=== PATIENT | female | born 1985 | race Caucasian/White ===

== ENCOUNTER 2018-12-09 18:10 | Emergency (ER) | payer SELFPAY ==
[~2018-12-09] VITALS: Ht 167.6 cm; Wt 68.0 kg
--- OUTSIDE RECORDS SUMMARY | 2018-12-09 18:18 | XMS REPORT | Clinical Summary ---
Author Author Admin, TEO Zelaya [facility] Address Unknown Phone Unavailable Allergies, Adverse Reactions, Alerts Allergy Name Reaction Description Start Date Severity Status Provider No Known Allergies Sanam Pagan Conditions or Problems Problem Name Problem Code Onset Date Status Entry Date Provider Comment Standard Description Annotate Supervision of other normal V22.1 Active Shakira Nicole MD Supervision of other normal Dyspareunia 625.0 Active Shakira Nicole MD Dyspareunia Pelvic pain 625.9 Active Shakira Nicole MD Unspecified symptom associated with female genital organs Rh factor, negative 656.10 Active Shakira Nicole MD Rhesus isoimmunization affecting management of mother, unspecified as to episode of care or not applicable Uterine size date discrepancy, antepartum condition or complication 649.63 Active Magui Montesinos Uterine size date discrepancy, antepartum condition or complication Post term , antepartum condition or complication 645.13 Active Magui Montesinos Post term , antepartum condition or complication Nevus, atypical 216.9 Active Mario Stover APRN Benign neoplasm of skin, site unspecified Medication List Medication Instructions Start Date Stop Date Generic Name NDC Status Provider Patient Instruction IBUPROFEN 200 MG TAB Take two by mouth every 4 hours as needed IBUPROFEN 31655196384 Active Jillina Frazell HVAC FIELD SERVICE TECHNICIAN Active PERCOCET 5-325 MG TABS 1 tablet by mouth every 4 hours as needed OXYCODONE-ACETAMINOPHEN [id number] Active Jillina Frazell HVAC FIELD SERVICE TECHNICIAN Active Advance Directives Directive Description Start Date PERMISSION TO SHARE Immunizations Vaccine Administration Date Value Standard Description Adacel (Tetanus, reduced Diphtheria, and acellular Pertussis Immunization) Adacel [[id number]] tetanus toxoid, reduced diphtheria toxoid, and acellular pertussis vaccine, adsorbed hepatitis B vaccine series no hepatitis B vaccine, unspecified formulation Vital Signs Date Name Value Unit Range Description blood pressure, diastolic - 8462-4 82 mm[Hg] BP martinez blood pressure, systolic - 8480-6 142 mm[Hg] BP sys height E&M - 8302-2 66 [in_us] Bdy height pulse rate E&M - 8867-4 112 /min Heart rate temperature E&M 101.2 [degF] Body temperature weight E&M - 3141-9 172 [lb_av] Weight Measured blood pressure, diastolic - 8462-4 82 mm[Hg] BP martinez blood pressure, systolic - 8480-6 118 mm[Hg] BP sys height E&M - 8302-2 66 [in_us] Bdy height pulse rate E&M - 8867-4 84 /min Heart rate temperature E&M 97.9 [degF] Body temperature weight E&M - 3141-9 182 [lb_av] Weight Measured blood pressure, diastolic - 8462-4 81 mm[Hg] BP martinez blood pressure, systolic - 8480-6 121 mm[Hg] BP sys height E&M - 8302-2 66 [in_us] Bdy height pulse rate E&M - 8867-4 76 /min Heart rate temperature E&M 96.8 [degF] Body temperature weight E&M - 3141-9 185 [lb_av] Weight Measured blood pressure, diastolic - 8462-4 79 mm[Hg] BP martinez blood pressure, systolic - 8480-6 122 mm[Hg] BP sys height E&M - 8302-2 66 [in_us] Bdy height pulse rate E&M - 8867-4 93 /min Heart rate temperature E&M 97.0 [degF] Body temperature weight E&M - 3141-9 183 [lb_av] Weight Measured blood pressure, diastolic - 8462-4 87 mm[Hg] BP martinez blood pressure, systolic - 8480-6 138 mm[Hg] BP sys height E&M - 8302-2 66 [in_us] Bdy height pulse rate E&M - 8867-4 98 /min Heart rate temperature E&M 96.9 [degF] Body temperature weight E&M - 3141-9 179 [lb_av] Weight Measured blood pressure, diastolic - 8462-4 80 mm[Hg] BP martinez blood pressure, systolic - 8480-6 117 mm[Hg] BP sys pulse rate E&M - 8867-4 116 /min Heart rate temperature E&M 97.3 [degF] Body temperature weight E&M - 3141-9 178 [lb_av] Weight Measured blood pressure, diastolic - 8462-4 74 mm[Hg] BP martinez blood pressure, systolic - 8480-6 109 mm[Hg] BP sys height E&M - 8302-2 66 [in_us] Bdy height pulse rate E&M - 8867-4 81 /min Heart rate temperature E&M 98.6 [degF] Body temperature weight E&M - 3141-9 177 [lb_av] Weight Measured blood pressure, diastolic - 8462-4 75 mm[Hg] BP martinez blood pressure, systolic - 8480-6 123 mm[Hg] BP sys height E&M - 8302-2 66 [in_us] Bdy height pulse rate E&M - 8867-4 86 /min Heart rate temperature E&M 98.4 [degF] Body temperature weight E&M - 3141-9 174 [lb_av] Weight Measured blood pressure, diastolic - 8462-4 75 mm[Hg] BP martinez blood pressure, systolic - 8480-6 121 mm[Hg] BP sys height E&M - 8302-2 66 [in_us] Bdy height pulse rate E&M - 8867-4 96 /min Heart rate temperature E&M 98.3 [degF] Body temperature weight E&M - 3141-9 173 [lb_av] Weight Measured blood pressure, diastolic - 8462-4 73 mm[Hg] BP martinez blood pressure, systolic - 8480-6 113 mm[Hg] BP sys height E&M - 8302-2 66 [in_us] Bdy height pulse rate E&M - 8867-4 99 /min Heart rate temperature E&M 97.6 [degF] Body temperature weight E&M - 3141-9 171 [lb_av] Weight Measured blood pressure, diastolic - 8462-4 71 mm[Hg] BP martinez blood pressure, systolic - 8480-6 111 mm[Hg] BP sys height E&M - 8302-2 66 [in_us] Bdy height pulse rate E&M - 8867-4 90 /min Heart rate temperature E&M 98.0 [degF] Body temperature weight E&M - 3141-9 170 [lb_av] Weight Measured blood pressure, diastolic - 8462-4 77 mm[Hg] BP martinez blood pressure, systolic - 8480-6 120 mm[Hg] BP sys height E&M - 8302-2 66 [in_us] Bdy height pulse rate E&M - 8867-4 87 /min Heart rate temperature E&M 98.6 [degF] Body temperature weight E&M - 3141-9 166 [lb_av] Weight Measured blood pressure, diastolic - 8462-4 85 mm[Hg] BP martinez blood pressure, systolic - 8480-6 132 mm[Hg] BP sys height E&M - 8302-2 66 [in_us] Bdy height pulse rate E&M - 8867-4 83 /min Heart rate temperature E&M 98.7 [degF] Body temperature weight E&M - 3141-9 1623 [lb_av] Weight Measured blood pressure, diastolic - 8462-4 77 mm[Hg] BP martinez blood pressure, systolic - 8480-6 115 mm[Hg] BP sys height E&M - 8302-2 66 [in_us] Bdy height pulse rate E&M - 8867-4 81 /min Heart rate temperature E&M 98.1 [degF] Body temperature weight E&M - 3141-9 159 [lb_av] Weight Measured blood pressure, diastolic - 8462-4 73 mm[Hg] BP martinez blood pressure, systolic - 8480-6 119 mm[Hg] BP sys height E&M - 8302-2 66 [in_us] Bdy height pulse rate E&M - 8867-4 78 /min Heart rate temperature E&M 97.6 [degF] Body temperature weight E&M - 3141-9 156 [lb_av] Weight Measured blood pressure, diastolic - 8462-4 84 mm[Hg] BP martinez blood pressure, systolic - 8480-6 132 mm[Hg] BP sys height E&M - 8302-2 66 [in_us] Bdy height pulse rate E&M - 8867-4 87 /min Heart rate temperature E&M 98.5 [degF] Body temperature weight E&M - 3141-9 87 [lb_av] Weight Measured Diagnostic Results Date Name Value Unit Range Description Lab Report: ABO GROUP & RH TYPE, ANTIBODY SCREEN, RBCW/REFL I, CBC (IN ... - Blood bank ABO blood group AB Rh antigen RH (D) NEGATIVE antibody screen, serum NO ANTIBODIES DETECTED Lab Report: ABO GROUP & RH TYPE, ANTIBODY SCREEN, RBCW/REFL I, CBC (IN ... - Chemistry hepatitis B surface antigen NON-REACTIVE NON-REACTIVE Lab Report: ABO GROUP & RH TYPE, ANTIBODY SCREEN, RBCW/REFL I, CBC (IN ... - Hematology leukocyte count, blood 10.8 THOUSAND/UL 10*3/mm3 3.8-10.8 erythrocyte (RBC) count 4.58 MILLION/UL 10*6/mm3 3.80-5.10 hemoglobin, blood 13.6 g/dL 11.7-15.5 hematocrit, blood 42.1 % 35.0-45.0 mean corpuscular volume, RBC 91.8 fL 80.0-100.0 mean corpuscular hemoglobin, RBC 29.7 pg 27.0-33.0 mean corpuscular hemoglobin concentration, RBC 32.4 G/DL % 32.0-36.0 red blood cell distribution width 14.4 % 11.0-15.0 platelet count 270 THOUSAND/UL 10*3/mm3 140-400 Lab Report: ABO GROUP & RH TYPE, ANTIBODY SCREEN, RBCW/REFL I, CBC (IN ... - Lab chlamydia DNA probe NOT DETECTED NOT DETECTED Lab Report: ABO GROUP & RH TYPE, ANTIBODY SCREEN, RBCW/REFL I, CBC (IN ... - Microbiology Neisseria gonorrhoeae DNA probe NOT DETECTED NOT DETECTED Lab Report: ABO GROUP & RH TYPE, ANTIBODY SCREEN, RBCW/REFL I, CBC (IN ... - Serology rapid plasma reagin antibody titer NON-REACTIVE NON-REACTIVE rubella antibody, serum, IgG 3.92 Lab Report: ANTIBODY SCREEN, RBCW/REFL I - Blood bank antibody screen, serum NO ANTIBODIES DETECTED Lab Report: CBC, OBGTT1 - Hematology leukocyte count, blood 11.7 10^3/MM^3 10*3/mm3 4.6-10.2 erythrocyte (RBC) count 3.70 10^6/MM^3 10*6/mm3 4.04-5.48 hemoglobin, blood 11.5 g/dL 12.0-16.0 hematocrit, blood 34.1 % 36.0-46.0 mean corpuscular volume, RBC 92 fL 80-97 mean corpuscular hemoglobin, RBC 31.1 pg 27.0-31.2 mean corpuscular hemoglobin concentration, RBC 33.8 G/DL % 31.8-35.4 red blood cell distribution width 12.4 % 11.6-14.8 platelet count 291 10^3/MM^3 10*3/mm3 142-424 Lab Report: Thyroid Stimulating Hormone (L) - Chemistry TSH 0.82 m[iU]/mL 0.36-3.74 Office Visit: Initial OB Visit - Chemistry protein, total urine random UA mg/dL Office Visit: Initial OB Visit - Genetics/fertility test, date 04/16/2013 Office Visit: Initial OB Visit - Microbiology Herpes Simplex Virus Genital no Office Visit: Initial OB Visit - Urinalysis glucose, urine, semiquantitative UA nitrite, urine, semiquantitative UA Office Visit: OB Visit - Blood bank blood type with RH factor AB Office Visit: OB Visit - Chemistry Neisseria gonorrhoeae, genital culture negative protein, total urine random N mg/dL protein, total urine random N mg/dL protein, total urine random 1+ mg/dL protein, total urine random N mg/dL protein, total urine random N mg/dL protein, total urine random N mg/dL protein, total urine random Tr mg/dL protein, total urine random 1+ mg/dL protein, total urine random N mg/dL protein, total urine random N mg/dL protein, total urine random Tr mg/dL protein, total urine random 1+ mg/dL protein, total urine random 1+ mg/dL Office Visit: OB Visit - Microbiology group B streptococcus culture negative urine culture (with units of CFunits/mL) negative {cfu}/mL Office Visit: OB Visit - Urinalysis glucose, urine, semiquantitative N nitrite, urine, semiquantitative N leukocyte esterase, urine, by dipstick 1+ glucose, urine, semiquantitative N nitrite, urine, semiquantitative N leukocyte esterase, urine, by dipstick negative glucose, urine, semiquantitative N nitrite, urine, semiquantitative N glucose, urine, semiquantitative N nitrite, urine, semiquantitative N glucose, urine, semiquantitative N nitrite, urine, semiquantitative N glucose, urine, semiquantitative N nitrite, urine, semiquantitative N leukocyte esterase, urine, by dipstick 1+ glucose, urine, semiquantitative N nitrite, urine, semiquantitative N glucose, urine, semiquantitative N nitrite, urine, semiquantitative N glucose, urine, semiquantitative N nitrite, urine, semiquantitative N leukocyte esterase, urine, by dipstick 1+ glucose, urine, semiquantitative N nitrite, urine, semiquantitative N leukocyte esterase, urine, by dipstick trace glucose, urine, semiquantitative N nitrite, urine, semiquantitative N leukocyte esterase, urine, by dipstick 2+ glucose, urine, semiquantitative N nitrite, urine, semiquantitative N leukocyte esterase, urine, by dipstick trace glucose, urine, semiquantitative N nitrite, urine, semiquantitative N Procedures Code Procedure Name Date Entry Date Standard Description CPT-LR Lesion Removal 16:10:33 CDT CPT-OV Office Visit 16:10:33 CDT CPT-53683L Sono biophysical pro wo stress test-[place] Only 10:41:52 CDT CPT-82098 Visit 16:43:13 CDT CPT-33819 Visit 08:49:27 CDT CPT-17893 Visit 09:08:50 CDT CPT-53792 Visit 12:21:22 CDT CPT-71313 Visit 11:22:56 CDT CPT-89227 Visit 16:23:29 CDT CPT-64019 Visit 15:59:20 CDT CPT-31771 Visit 16:15:00 CDT CPT-06101 First Vx Component - Ix admin via ID IM or jet inj without physician counseling 15:57:47 CDT CPT-07196 Adacel 15:57:47 CDT CPT-71213 Visit 15:36:49 CDT CPT-46151 Visit 16:25:20 CDT CPT-06159 Sono OB comp > 14 weeks 17:12:58 AIR HOIST OPERATOR CPT-76633 Visit 17:03:47 AIR HOIST OPERATOR CPT-07047 Visit 16:32:33 AIR HOIST OPERATOR CPT-40310 Visit 16:32:21 AIR HOIST OPERATOR CPT-84194K Sono OB comp <14 weeks ([place] Only) 17:02:58 AIR HOIST OPERATOR CPT-36520 Spec Collection and Handling Fee 16:38:26 AIR HOIST OPERATOR CPT-46503 Visit 16:38:26 AIR HOIST OPERATOR
--- OUTSIDE RECORDS SUMMARY | 2018-12-09 18:18 | XMS REPORT | Clinical Summary ---
Author Author Admin, TEO Zelaya [facility] Address Unknown Phone Allergies, Adverse Reactions, Alerts Allergy Name Reaction [...] size date discrepancy, antepartum condition or complication Medication List Medication Instructions Start Date Stop Date Generic Name NDC Status Provider Patient Instruction No Drug Therapy Prescribed - none known did ask Sanam Pagan Advance Directives Directive Description Start Date PERMISSION TO SHARE Immunizations Vaccine Administration Date Value Standard Description Adacel immunization Adacel [[id number]] tetanus toxoid, reduced diphtheria toxoid, and acellular pertussis vaccine, adsorbed hepatitis B vaccine series no hepatitis B vaccine, unspecified formulation Vital Signs Date Name Value Unit Range Description blood pressure, diastolic 73 mm[Hg] BP martinez blood pressure, systolic 113 mm[Hg] BP sys height E&M 66 [in_us] Bdy height pulse rate E&M 99 /min Heart rate temperature E&M 97.6 [degF] Body temperature weight E&M 171 [lb_av] Weight Measured blood pressure, diastolic 71 mm[Hg] BP martinez blood pressure, systolic 111 mm[Hg] BP sys height E&M 66 [in_us] Bdy height pulse rate E&M 90 /min Heart rate temperature E&M 98.0 [degF] Body temperature weight E&M 170 [lb_av] Weight Measured blood pressure, diastolic 77 mm[Hg] BP martinez blood pressure, systolic 120 mm[Hg] BP sys height E&M 66 [in_us] Bdy height pulse rate E&M 87 /min Heart rate temperature E&M 98.6 [degF] Body temperature weight E&M 166 [lb_av] Weight Measured blood pressure, diastolic 85 mm[Hg] BP martinez blood pressure, systolic 132 mm[Hg] BP sys height E&M 66 [in_us] Bdy height pulse rate E&M 83 /min Heart rate temperature E&M 98.7 [degF] Body temperature weight E&M 1623 [lb_av] Weight Measured blood pressure, diastolic 77 mm[Hg] BP martinez blood pressure, systolic 115 mm[Hg] BP sys height E&M 66 [in_us] Bdy height pulse rate E&M 81 /min Heart rate temperature E&M 98.1 [degF] Body temperature weight E&M 159 [lb_av] Weight Measured blood pressure, diastolic 73 mm[Hg] BP martinez blood pressure, systolic 119 mm[Hg] BP sys height E&M 66 [in_us] Bdy height pulse rate E&M 78 /min Heart rate temperature E&M 97.6 [degF] Body temperature weight E&M 156 [lb_av] Weight Measured blood pressure, diastolic 84 mm[Hg] BP martinez blood pressure, systolic 132 mm[Hg] BP sys height E&M 66 [in_us] Bdy height pulse rate E&M 87 /min Heart rate temperature E&M 98.5 [degF] Body temperature weight E&M 87 [lb_av] Weight Measured Diagnostic Results Date [...] mg/dL protein, total urine random N mg/dL Office Visit: OB Visit - Microbiology urine culture (with units of CFunits/mL) negative [...] Procedure Name Date Entry Date Standard Description CPT-69837 Visit 16:15:00 CDT CPT-17923 First Vx Component - Ix admin via ID IM or jet inj without physician counseling 15:57:47 CDT CPT-66007 Adacel 15:57:47 CDT CPT-79859 Visit 15:36:49 CDT CPT-75932 Visit 16:25:20 CDT CPT-34139 Sono OB comp > 14 weeks 17:12:58 FIRST MATE CPT-98092 Visit 17:03:47 FIRST MATE CPT-22460 Visit 16:32:33 FIRST MATE CPT-49190 Visit 16:32:21 FIRST MATE CPT-64617N Sono OB comp <14 weeks ([place] Only) 17:02:58 FIRST MATE CPT-04457 Spec Collection and Handling Fee 16:38:26 FIRST MATE CPT-01862 Visit 16:38:26 FIRST MATE
--- OUTSIDE RECORDS SUMMARY | 2018-12-09 18:19 | XMS REPORT | Clinical Summary ---
Author Author Admin, TEO Zelaya [facility] Address Unknown Phone Allergies, Adverse Reactions, Alerts Allergy Name Reaction Description Start Date Severity Status Provider No Known Allergies aSnam Pagan Conditions or Problems Problem Name Problem [...] Date Value Standard Description Adacel immunization Adacel [[id number]] tetanus toxoid, reduced diphtheria toxoid, and acellular pertussis vaccine, adsorbed hepatitis B vaccine series no hepatitis B vaccine, unspecified formulation Vital Signs Date Name Value Unit Range Description blood pressure, diastolic 75 mm[Hg] BP martinez blood pressure, systolic 121 mm[Hg] BP sys height E&M 66 [in_us] Bdy height pulse rate E&M 96 /min Heart rate temperature E&M 98.3 [degF] Body temperature weight E&M 173 [lb_av] Weight Measured blood pressure, diastolic 73 [...] random Tr mg/dL protein, total urine random N mg/dL [...] Procedure Name Date Entry Date Standard Description CPT-69631 Visit 15:59:20 CDT CPT-65308 Visit 16:15:00 CDT CPT-66873 First Vx Component - Ix admin via ID IM or jet inj without physician counseling 15:57:47 CDT CPT-48420 Adacel 15:57:47 CDT CPT-31632 Visit 15:36:49 CDT CPT-00660 Visit 16:25:20 CDT CPT-07515 Sono OB comp > 14 weeks 17:12:58 DIVISION LEADER CPT-65612 Visit 17:03:47 DIVISION LEADER CPT-76191 Visit 16:32:33 DIVISION LEADER CPT-70106 Visit 16:32:21 DIVISION LEADER CPT-21813W Sono OB comp <14 weeks ([place] Only) 17:02:58 DIVISION LEADER CPT-33097 Spec Collection and Handling Fee 16:38:26 DIVISION LEADER CPT-90860 Visit 16:38:26 DIVISION LEADER
--- OUTSIDE RECORDS SUMMARY | 2018-12-09 18:19 | XMS REPORT | Clinical Summary ---
Author Author Admin, TEO Zelaya [facility] Address Unknown Phone Allergies, Adverse Reactions, Alerts [...] Post term , antepartum condition or complication Medication List Medication Instructions Start Date Stop Date Generic Name NDC Status Provider Patient Instruction No Drug Therapy Prescribed - none known did ask Sanam Pagan Advance Directives Directive Description Start Date PERMISSION TO SHARE Immunizations Vaccine Administration Date Value Standard Description Adacel (Tetanus, reduced Diphtheria, and acellular Pertussis Immunization) Adacel [[id number]] tetanus toxoid, reduced diphtheria toxoid, and acellular [...] N leukocyte esterase, urine, by dipstick trace Procedures Code Procedure Name Date Entry Date Standard Description CPT-24323G Sono biophysical pro wo stress test-[place] Only 10:41:52 CDT CPT-53451 Visit 16:43:13 CDT CPT-19371 Visit 08:49:27 CDT CPT-60016 Visit 09:08:50 CDT CPT-68263 Visit 12:21:22 CDT CPT-80177 Visit 11:22:56 CDT CPT-61533 Visit 16:23:29 CDT CPT-00754 Visit 15:59:20 CDT CPT-93053 Visit 16:15:00 CDT CPT-22949 First Vx Component - Ix admin via ID IM or jet inj without physician counseling 15:57:47 CDT CPT-27917 Adacel 15:57:47 CDT CPT-45446 Visit 15:36:49 CDT CPT-27893 Visit 16:25:20 CDT CPT-03752 Sono OB comp > 14 weeks 17:12:58 EDUCATIONAL MANAGER CPT-11968 Visit 17:03:47 EDUCATIONAL MANAGER CPT-85637 Visit 16:32:33 EDUCATIONAL MANAGER CPT-87311 Visit 16:32:21 EDUCATIONAL MANAGER CPT-45461X Sono OB comp <14 weeks ([place] Only) 17:02:58 EDUCATIONAL MANAGER CPT-03034 Spec Collection and Handling Fee 16:38:26 EDUCATIONAL MANAGER CPT-61438 Visit 16:38:26 EDUCATIONAL MANAGER
--- OUTSIDE RECORDS SUMMARY | 2018-12-09 18:19 | XMS REPORT | Clinical Summary ---
Author Author Admin, TEO Zelaya [facility] Address Unknown Phone Allergies, Adverse Reactions, [...] Date Value Standard Description Adacel immunization Adacel [[id number]] tetanus toxoid, reduced diphtheria toxoid, and acellular pertussis vaccine, adsorbed hepatitis B vaccine series no hepatitis B vaccine, unspecified formulation Vital Signs Date Name Value Unit Range Description blood pressure, diastolic 75 mm[Hg] BP martinez blood pressure, systolic 123 mm[Hg] BP sys height E&M 66 [in_us] Bdy height pulse rate E&M 86 /min Heart rate temperature E&M 98.4 [degF] Body temperature weight E&M 174 [lb_av] Weight Measured blood pressure, diastolic 75 mm[Hg] BP martinez [...] Procedure Name Date Entry Date Standard Description CPT-94269 Visit 16:23:29 CDT CPT-95904 Visit 15:59:20 CDT CPT-98136 Visit 16:15:00 CDT CPT-75438 First Vx Component - Ix admin via ID IM or jet inj without physician counseling 15:57:47 CDT CPT-69590 Adacel 15:57:47 CDT CPT-21244 Visit 15:36:49 CDT CPT-75801 Visit 16:25:20 CDT CPT-87625 Sono OB comp > 14 weeks 17:12:58 EDITOR FARM JOURNAL CPT-44179 Visit 17:03:47 EDITOR FARM JOURNAL CPT-10332 Visit 16:32:33 EDITOR FARM JOURNAL CPT-46010 Visit 16:32:21 EDITOR FARM JOURNAL CPT-02194S Sono OB comp <14 weeks ([place] Only) 17:02:58 EDITOR FARM JOURNAL CPT-78917 Spec Collection and Handling Fee 16:38:26 EDITOR FARM JOURNAL CPT-66268 Visit 16:38:26 EDITOR FARM JOURNAL
--- OUTSIDE RECORDS SUMMARY | 2018-12-09 18:20 | XMS REPORT | Clinical Summary ---
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 Mario Stover MULTIFOCAL BUTTON INSPECTOR Benign neoplasm of skin, site unspecified Medication List Medication Instructions Start Date Stop Date Generic Name ND Status Provider Patient Instruction PERCOCET 5-325 MG TABS 1 tablet by mouth every 4 hours as needed OXYCODONE-ACETAMINOPHEN [id number] No Longer Active Shakira Nicole MD Active IBUPROFEN 200 MG TAB Take two by mouth every 4 hours as needed IBUPROFEN [id number] No Longer Active Shakira Nicole MD Active IBUPROFEN 200 MG TAB Take two by mouth every 4 hours as needed IBUPROFEN 200 MG TAB [id number] IBUPROFEN Inactive PERCOCET 5-325 MG TABS 1 tablet by mouth every 4 hours as needed PERCOCET 5-325 MG TABS [id number] OXYCODONE-ACETAMINOPHEN Inactive Advance Directives Directive Description Start Date PERMISSION TO SHARE Immunizations Vaccine Administration Date Value Standard Description Adacel immunization Adacel [[id number]] tetanus toxoid, reduced diphtheria toxoid, and acellular pertussis vaccine, adsorbed hepatitis B vaccine series no hepatitis B vaccine, unspecified formulation Vital Signs Date Name Value Unit Range Description blood pressure, diastolic 82 mm[Hg] BP martinez blood pressure, systolic 142 mm[Hg] BP sys height E&M 66 [in_us] Bdy height pulse rate E&M 112 /min Heart rate temperature E&M 101.2 [degF] Body temperature weight E&M 172 [lb_av] Weight Measured blood pressure, diastolic 82 mm[Hg] BP martinez blood pressure, systolic 118 mm[Hg] BP sys height E&M 66 [in_us] Bdy height pulse rate E&M 84 /min Heart rate temperature E&M 97.9 [degF] Body temperature weight E&M 182 [lb_av] Weight Measured blood pressure, diastolic 81 mm[Hg] BP martinez blood pressure, systolic 121 mm[Hg] BP sys height E&M 66 [in_us] Bdy height pulse rate E&M 76 /min Heart rate temperature E&M 96.8 [degF] Body temperature weight E&M 185 [lb_av] Weight Measured blood pressure, diastolic 79 mm[Hg] BP martinez blood pressure, systolic 122 mm[Hg] BP sys height E&M 66 [in_us] Bdy height pulse rate E&M 93 /min Heart rate temperature E&M 97.0 [degF] Body temperature weight E&M 183 [lb_av] Weight Measured blood pressure, diastolic 87 mm[Hg] BP martinez blood pressure, systolic 138 mm[Hg] BP sys height E&M 66 [in_us] Bdy height pulse rate E&M 98 /min Heart rate temperature E&M 96.9 [degF] Body temperature weight E&M 179 [lb_av] Weight Measured blood pressure, diastolic 80 mm[Hg] BP martinez blood pressure, systolic 117 mm[Hg] BP sys pulse rate E&M 116 /min Heart rate temperature E&M 97.3 [degF] Body temperature weight E&M 178 [lb_av] Weight Measured blood pressure, diastolic 74 mm[Hg] BP martinez blood pressure, systolic 109 mm[Hg] BP sys height E&M 66 [in_us] Bdy height pulse rate E&M 81 /min Heart rate temperature E&M 98.6 [degF] Body temperature weight E&M 177 [lb_av] Weight Measured blood pressure, diastolic 75 [...] Procedure Name Date Entry Date Standard Description CPT-14104 Visit 16:16:08 CDT CPT-LR Lesion Removal 16:10:33 CDT CPT-OV Office Visit 16:10:33 CDT CPT-96622J Sono biophysical pro wo stress test-[place] Only 10:41:52 CDT CPT-30810 Visit 16:43:13 CDT CPT-17327 Visit 08:49:27 CDT CPT-67208 Visit 09:08:50 CDT CPT-26310 Visit 12:21:22 CDT CPT-05930 Visit 11:22:56 CDT CPT-71530 Visit 16:23:29 CDT CPT-43007 Visit 15:59:20 CDT CPT-45984 Visit 16:15:00 CDT CPT-54361 First Vx Component - Ix admin via ID IM or jet inj without physician counseling 15:57:47 CDT CPT-04505 Adacel 15:57:47 CDT CPT-42972 Visit 15:36:49 CDT CPT-19148 Visit 16:25:20 CDT CPT-78895 Sono OB comp > 14 weeks 17:12:58 HEALTH INSURANCE ASSESSOR CPT-62067 Visit 17:03:47 HEALTH INSURANCE ASSESSOR CPT-64329 Visit 16:32:33 HEALTH INSURANCE ASSESSOR CPT-87209 Visit 16:32:21 HEALTH INSURANCE ASSESSOR CPT-41451E Sono OB comp <14 weeks ([place] Only) 17:02:58 HEALTH INSURANCE ASSESSOR CPT-73206 Spec Collection and Handling Fee 16:38:26 HEALTH INSURANCE ASSESSOR CPT-03481 Visit 16:38:26 HEALTH INSURANCE ASSESSOR
--- OUTSIDE RECORDS SUMMARY | 2018-12-09 18:20 | XMS REPORT | Clinical Summary ---
Author Author Admin, TEO Zelaya [facility] Address Unknown Phone Allergies, Adverse Reactions, Alerts [...] reduced Diphtheria, and acellular Pertussis Immunization) Adacel [[id number]] tetanus toxoid, reduced diphtheria toxoid, and acellular [...] Procedure Name Date Entry Date Standard Description [facility]-42422 Visit 16:43:13 CDT CPT-44296 Visit 08:49:27 CDT CPT-53528 Visit 09:08:50 CDT CPT-05859 Visit 12:21:22 CDT CPT-61868 Visit 11:22:56 CDT CPT-56664 Visit 16:23:29 CDT CPT-07996 Visit 15:59:20 CDT CPT-89371 Visit 16:15:00 CDT CPT-07203 First Vx Component - Ix admin via ID IM or jet inj without physician counseling 15:57:47 CDT CPT-92525 Adacel 15:57:47 CDT CPT-60268 Visit 15:36:49 CDT CPT-21916 Visit 16:25:20 CDT CPT-89988 Sono OB comp > 14 weeks 17:12:58 OPERATIONS ENGINEER CPT-18486 Visit 17:03:47 OPERATIONS ENGINEER CPT-23215 Visit 16:32:33 OPERATIONS ENGINEER CPT-18007 Visit 16:32:21 OPERATIONS ENGINEER CPT-96338G Sono OB comp <14 weeks ([place] Only) 17:02:58 OPERATIONS ENGINEER CPT-59094 Spec Collection and Handling Fee 16:38:26 OPERATIONS ENGINEER CPT-05978 Visit 16:38:26 OPERATIONS ENGINEER
--- OUTSIDE RECORDS SUMMARY | 2018-12-09 18:20 | XMS REPORT | Clinical Summary ---
Author Author Admin, TEO Zelaya [facility] Address Unknown Phone Allergies, Adverse Reactions, Alerts [...] Date Value Standard Description Adacel immunization Adacel [MYZ120] tetanus toxoid, reduced diphtheria toxoid, and acellular [...] Procedure Name Date Entry Date Standard Description CPT-98373 Visit 16:23:29 CDT CPT-82535 Visit 15:59:20 CDT CPT-79827 Visit 16:15:00 CDT CPT-65771 First Vx Component - Ix admin via ID IM or jet inj without physician counseling 15:57:47 CDT CPT-68697 Adacel 15:57:47 CDT CPT-67351 Visit 15:36:49 CDT CPT-70999 Visit 16:25:20 CDT CPT-13070 Sono OB comp > 14 weeks 17:12:58 LACQUER SPRAYER CPT-08009 Visit 17:03:47 LACQUER SPRAYER CPT-58624 Visit 16:32:33 LACQUER SPRAYER CPT-67104 Visit 16:32:21 LACQUER SPRAYER CPT-42521R Sono OB comp <14 weeks ([place] Only) 17:02:58 LACQUER SPRAYER CPT-33671 Spec Collection and Handling Fee 16:38:26 LACQUER SPRAYER CPT-98137 Visit 16:38:26 LACQUER SPRAYER
--- OUTSIDE RECORDS SUMMARY | 2018-12-09 18:21 | XMS REPORT | Clinical Summary ---
Author Author Admin, TEO Zelaya [facility] Address Unknown Phone Unavailable Allergies, Adverse Reactions, [...] mouth every 4 hours as needed IBUPROFEN [id number] Active Jillina Frazell YEAST DISTILLER Active PERCOCET 5-325 MG TABS 1 tablet by mouth every 4 hours as needed OXYCODONE-ACETAMINOPHEN 26008712582 Active Jillina Frazell YEAST DISTILLER Active Advance Directives Directive Description Start Date PERMISSION TO SHARE Immunizations Vaccine Administration Date Value Standard Description Adacel (Tetanus, reduced Diphtheria, and acellular Pertussis Immunization) Adacel [[id number]] tetanus toxoid, reduced diphtheria toxoid, and acellular [...] 16:10:33 CDT CPT-OV Office Visit 16:10:33 CDT CPT-76645D Sono biophysical pro wo stress test-[place] Only 10:41:52 CDT CPT-93061 Visit 16:43:13 CDT CPT-23265 Visit 08:49:27 CDT CPT-47640 Visit 09:08:50 CDT CPT-78941 Visit 12:21:22 CDT CPT-36207 Visit 11:22:56 CDT CPT-50944 Visit 16:23:29 CDT CPT-57541 Visit 15:59:20 CDT CPT-66249 Visit 16:15:00 CDT CPT-31871 First Vx Component - Ix admin via ID IM or jet inj without physician counseling 15:57:47 CDT CPT-79668 Adacel 15:57:47 CDT CPT-09510 Visit 15:36:49 CDT CPT-81223 Visit 16:25:20 CDT CPT-57721 Sono OB comp > 14 weeks 17:12:58 FREIGHT CAR REPAIRER CPT-91174 Visit 17:03:47 FREIGHT CAR REPAIRER CPT-74528 Visit 16:32:33 FREIGHT CAR REPAIRER CPT-09458 Visit 16:32:21 FREIGHT CAR REPAIRER CPT-69597L Sono OB comp <14 weeks ([place] Only) 17:02:58 FREIGHT CAR REPAIRER CPT-70575 Spec Collection and Handling Fee 16:38:26 FREIGHT CAR REPAIRER CPT-86719 Visit 16:38:26 FREIGHT CAR REPAIRER
--- OUTSIDE RECORDS SUMMARY | 2018-12-09 18:21 | XMS REPORT | Clinical Summary ---
Author Author Admin, TEO Zelaya [facility] Address Unknown Phone Allergies, Adverse Reactions, [...] Date Value Standard Description Adacel immunization Adacel [OSN035] tetanus toxoid, reduced diphtheria toxoid, and acellular [...] Procedure Name Date Entry Date Standard Description CPT-55625 Visit 16:15:00 CDT CPT-36443 First Vx Component - Ix admin via ID IM or jet inj without physician counseling 15:57:47 CDT CPT-37710 Adacel 15:57:47 CDT CPT-59366 Visit 15:36:49 CDT CPT-87019 Visit 16:25:20 CDT CPT-59390 Sono OB comp > 14 weeks 17:12:58 CLINICAL ADMINISTRATOR CPT-08564 Visit 17:03:47 CLINICAL ADMINISTRATOR CPT-23594 Visit 16:32:33 CLINICAL ADMINISTRATOR CPT-52629 Visit 16:32:21 CLINICAL ADMINISTRATOR CPT-69934B Sono OB comp <14 weeks ([place] Only) 17:02:58 CLINICAL ADMINISTRATOR CPT-01190 Spec Collection and Handling Fee 16:38:26 CLINICAL ADMINISTRATOR CPT-09549 Visit 16:38:26 CLINICAL ADMINISTRATOR
--- OUTSIDE RECORDS SUMMARY | 2018-12-09 18:21 | XMS REPORT | Clinical Summary ---
Author Author Admin, TEO Zelaya [facility] Address Unknown Phone Unavailable Allergies, Adverse Reactions, [...] mouth every 4 hours as needed IBUPROFEN [id number] Active Jillina Frazell GENERATION ENGINEER Active PERCOCET 5-325 MG TABS 1 tablet by mouth every 4 hours as needed OXYCODONE-ACETAMINOPHEN 57776429670 Active Jillina Frazell GENERATION ENGINEER Active Advance Directives Directive Description Start Date PERMISSION TO SHARE Immunizations Vaccine Administration Date Value Standard Description Adacel (Tetanus, reduced Diphtheria, and acellular Pertussis Immunization) Adacel [NVO321] tetanus toxoid, reduced diphtheria toxoid, and acellular [...] 16:10:33 CDT CPT-OV Office Visit 16:10:33 CDT CPT-82802E Sono biophysical pro wo stress test-[place] Only 10:41:52 CDT CPT-73750 Visit 16:43:13 CDT CPT-61352 Visit 08:49:27 CDT CPT-79565 Visit 09:08:50 CDT CPT-81610 Visit 12:21:22 CDT CPT-95142 Visit 11:22:56 CDT CPT-07624 Visit 16:23:29 CDT CPT-53124 Visit 15:59:20 CDT CPT-57067 Visit 16:15:00 CDT CPT-09070 First Vx Component - Ix admin via ID IM or jet inj without physician counseling 15:57:47 CDT CPT-69305 Adacel 15:57:47 CDT CPT-67246 Visit 15:36:49 CDT CPT-95578 Visit 16:25:20 CDT CPT-58671 Sono OB comp > 14 weeks 17:12:58 ENVIRONMENTAL SERVICES FLOOR TECH CPT-86992 Visit 17:03:47 ENVIRONMENTAL SERVICES FLOOR TECH CPT-91884 Visit 16:32:33 ENVIRONMENTAL SERVICES FLOOR TECH CPT-33570 Visit 16:32:21 ENVIRONMENTAL SERVICES FLOOR TECH CPT-23381E Sono OB comp <14 weeks ([place] Only) 17:02:58 ENVIRONMENTAL SERVICES FLOOR TECH CPT-99245 Spec Collection and Handling Fee 16:38:26 ENVIRONMENTAL SERVICES FLOOR TECH CPT-10733 Visit 16:38:26 ENVIRONMENTAL SERVICES FLOOR TECH
--- OUTSIDE RECORDS SUMMARY | 2018-12-09 18:22 | XMS REPORT | Clinical Summary ---
Author Author Admin, TEO Zelaya [facility] Address Unknown Phone Unavailable Allergies, [...] mouth every 4 hours as needed IBUPROFEN [id number] Active Jillina Frazell KEY ACCOUNT REPRESENTATIVE Active PERCOCET 5-325 MG TABS 1 tablet by mouth every 4 hours as needed OXYCODONE-ACETAMINOPHEN 16437267606 Active Jillina Frazell KEY ACCOUNT REPRESENTATIVE Active Advance Directives Directive Description Start Date PERMISSION TO SHARE Immunizations Vaccine Administration Date Value Standard Description Adacel (Tetanus, reduced Diphtheria, and acellular Pertussis Immunization) Adacel [EMZ912] tetanus toxoid, reduced diphtheria toxoid, and acellular [...] 16:10:33 CDT CPT-OV Office Visit 16:10:33 CDT CPT-11020D Sono biophysical pro wo stress test-[place] Only 10:41:52 CDT CPT-07992 Visit 16:43:13 CDT CPT-32860 Visit 08:49:27 CDT CPT-74436 Visit 09:08:50 CDT CPT-24335 Visit 12:21:22 CDT CPT-93759 Visit 11:22:56 CDT CPT-34646 Visit 16:23:29 CDT CPT-52745 Visit 15:59:20 CDT CPT-22570 Visit 16:15:00 CDT CPT-54445 First Vx Component - Ix admin via ID IM or jet inj without physician counseling 15:57:47 CDT CPT-15174 Adacel 15:57:47 CDT CPT-52198 Visit 15:36:49 CDT CPT-60324 Visit 16:25:20 CDT CPT-76853 Sono OB comp > 14 weeks 17:12:58 SMT OPERATOR CPT-79791 Visit 17:03:47 SMT OPERATOR CPT-56339 Visit 16:32:33 SMT OPERATOR CPT-34794 Visit 16:32:21 SMT OPERATOR CPT-08790M Sono OB comp <14 weeks ([place] Only) 17:02:58 SMT OPERATOR CPT-22467 Spec Collection and Handling Fee 16:38:26 SMT OPERATOR CPT-41885 Visit 16:38:26 SMT OPERATOR
--- OUTSIDE RECORDS SUMMARY | 2018-12-09 18:22 | XMS REPORT | Clinical Summary ---
Author Author Admin, TEO Zelaya [facility] Address Unknown Phone Allergies, Adverse Reactions, [...] reduced Diphtheria, and acellular Pertussis Immunization) Adacel [ZVS926] tetanus toxoid, reduced diphtheria toxoid, and acellular pertussis vaccine, adsorbed hepatitis B vaccine series no hepatitis B vaccine, unspecified formulation Vital Signs Date Name Value Unit Range Description blood pressure, diastolic - 8462-4 87 mm[Hg] [...] Procedure Name Date Entry Date Standard Description CPT-55653 Visit 09:08:50 CDT CPT-50942 Visit 12:21:22 CDT CPT-32414 Visit 11:22:56 CDT CPT-86422 Visit 16:23:29 CDT CPT-44114 Visit 15:59:20 CDT CPT-96282 Visit 16:15:00 CDT CPT-65114 First Vx Component - Ix admin via ID IM or jet inj without physician counseling 15:57:47 CDT CPT-44303 Adacel 15:57:47 CDT CPT-46318 Visit 15:36:49 CDT CPT-67037 Visit 16:25:20 CDT CPT-32600 Sono OB comp > 14 weeks 17:12:58 QUILTING MACHINE HELPER CPT-94199 Visit 17:03:47 QUILTING MACHINE HELPER CPT-65965 Visit 16:32:33 QUILTING MACHINE HELPER CPT-53149 Visit 16:32:21 QUILTING MACHINE HELPER CPT-82334J Sono OB comp <14 weeks ([place] Only) 17:02:58 QUILTING MACHINE HELPER CPT-57534 Spec Collection and Handling Fee 16:38:26 QUILTING MACHINE HELPER CPT-61495 Visit 16:38:26 QUILTING MACHINE HELPER
--- OUTSIDE RECORDS SUMMARY | 2018-12-09 18:22 | XMS REPORT | Clinical Summary ---
Author Author Admin, TEO Zelaya [facility] Address Unknown Phone Allergies, Adverse Reactions, Alerts [...] Date Value Standard Description Adacel immunization Adacel [[id number]] tetanus toxoid, reduced diphtheria toxoid, and acellular [...] Procedure Name Date Entry Date Standard Description CPT-56218 Visit 16:15:00 CDT CPT-93954 First Vx Component - Ix admin via ID IM or jet inj without physician counseling 15:57:47 CDT CPT-67076 Adacel 15:57:47 CDT CPT-62432 Visit 15:36:49 CDT CPT-42381 Visit 16:25:20 CDT CPT-02649 Sono OB comp > 14 weeks 17:12:58 GATE OPERATOR CPT-01256 Visit 17:03:47 GATE OPERATOR CPT-94398 Visit 16:32:33 GATE OPERATOR CPT-89357 Visit 16:32:21 GATE OPERATOR CPT-21661E Sono OB comp <14 weeks ([place] Only) 17:02:58 GATE OPERATOR CPT-94852 Spec Collection and Handling Fee 16:38:26 GATE OPERATOR CPT-81484 Visit 16:38:26 GATE OPERATOR
--- OUTSIDE RECORDS SUMMARY | 2018-12-09 18:23 | XMS REPORT | Clinical Summary ---
Author Author Admin, TEO Zelaya [facility] Address Unknown Phone Allergies, Adverse Reactions, [...] Date Value Standard Description Adacel immunization Adacel [[id number]] tetanus toxoid, reduced diphtheria toxoid, and acellular [...] Procedure Name Date Entry Date Standard Description CPT-31553 Visit 15:59:20 CDT CPT-44135 Visit 16:15:00 CDT CPT-71537 First Vx Component - Ix admin via ID IM or jet inj without physician counseling 15:57:47 CDT CPT-93857 Adacel 15:57:47 CDT CPT-58106 Visit 15:36:49 CDT CPT-19340 Visit 16:25:20 CDT CPT-59069 Sono OB comp > 14 weeks 17:12:58 CANCELING AND CUTTING CONTROL CLERK CPT-27099 Visit 17:03:47 CANCELING AND CUTTING CONTROL CLERK CPT-71196 Visit 16:32:33 CANCELING AND CUTTING CONTROL CLERK CPT-60732 Visit 16:32:21 CANCELING AND CUTTING CONTROL CLERK CPT-33534Y Sono OB comp <14 weeks ([place] Only) 17:02:58 CANCELING AND CUTTING CONTROL CLERK CPT-97538 Spec Collection and Handling Fee 16:38:26 CANCELING AND CUTTING CONTROL CLERK CPT-85127 Visit 16:38:26 CANCELING AND CUTTING CONTROL CLERK
--- OUTSIDE RECORDS SUMMARY | 2018-12-09 18:23 | XMS REPORT | Clinical Summary ---
Author Author Admin, TEO Zelaya [facility] Address Unknown Phone Allergies, Adverse Reactions, [...] Date Value Standard Description Adacel immunization Adacel [[id number]] tetanus toxoid, reduced diphtheria toxoid, and acellular [...] Procedure Name Date Entry Date Standard Description CPT-20141 Visit 16:15:00 CDT CPT-20427 First Vx Component - Ix admin via ID IM or jet inj without physician counseling 15:57:47 CDT CPT-75008 Adacel 15:57:47 CDT CPT-45959 Visit 15:36:49 CDT CPT-36001 Visit 16:25:20 CDT CPT-85376 Sono OB comp > 14 weeks 17:12:58 TRUCK SUPERVISOR CPT-82849 Visit 17:03:47 TRUCK SUPERVISOR CPT-55119 Visit 16:32:33 TRUCK SUPERVISOR CPT-43123 Visit 16:32:21 TRUCK SUPERVISOR CPT-14342E Sono OB comp <14 weeks ([place] Only) 17:02:58 TRUCK SUPERVISOR CPT-25343 Spec Collection and Handling Fee 16:38:26 TRUCK SUPERVISOR CPT-76719 Visit 16:38:26 TRUCK SUPERVISOR
--- OUTSIDE RECORDS SUMMARY | 2018-12-09 18:23 | XMS REPORT | Clinical Summary ---
Author Author Admin, TEO Zelaya [facility] Address Unknown Phone Allergies, Adverse Reactions, Alerts [...] reduced Diphtheria, and acellular Pertussis Immunization) Adacel [[id number]] tetanus toxoid, reduced diphtheria toxoid, and acellular pertussis vaccine, adsorbed hepatitis B vaccine series no hepatitis B vaccine, unspecified formulation Vital Signs Date Name Value Unit Range Description blood pressure, diastolic - 8462-4 79 mm[Hg] [...] Procedure Name Date Entry Date Standard Description CPT-11085 Visit 08:49:27 CDT CPT-97796 Visit 09:08:50 CDT CPT-15808 Visit 12:21:22 CDT CPT-24582 Visit 11:22:56 CDT CPT-93410 Visit 16:23:29 CDT CPT-02840 Visit 15:59:20 CDT CPT-34320 Visit 16:15:00 CDT CPT-76785 First Vx Component - Ix admin via ID IM or jet inj without physician counseling 15:57:47 CDT CPT-27382 Adacel 15:57:47 CDT CPT-27820 Visit 15:36:49 CDT CPT-35848 Visit 16:25:20 CDT CPT-06569 Sono OB comp > 14 weeks 17:12:58 HEALTH UNDERWRITER CPT-63614 Visit 17:03:47 HEALTH UNDERWRITER CPT-14170 Visit 16:32:33 HEALTH UNDERWRITER CPT-59905 Visit 16:32:21 HEALTH UNDERWRITER CPT-34612S Sono OB comp <14 weeks ([place] Only) 17:02:58 HEALTH UNDERWRITER CPT-32198 Spec Collection and Handling Fee 16:38:26 HEALTH UNDERWRITER CPT-19548 Visit 16:38:26 HEALTH UNDERWRITER
--- OUTSIDE RECORDS SUMMARY | 2018-12-09 18:24 | XMS REPORT | Clinical Summary ---
Author Author Admin, TEO Zelaya [facility] Address Unknown Phone Allergies, Adverse Reactions, [...] reduced Diphtheria, and acellular Pertussis Immunization) Adacel [FYT424] tetanus toxoid, reduced diphtheria toxoid, and acellular [...] Procedure Name Date Entry Date Standard Description CPT-79832Y Sono biophysical pro wo stress test-[place] Only 10:41:52 CDT CPT-19432 Visit 16:43:13 CDT CPT-29259 Visit 08:49:27 CDT CPT-42393 Visit 09:08:50 CDT CPT-33456 Visit 12:21:22 CDT CPT-37852 Visit 11:22:56 CDT CPT-85181 Visit 16:23:29 CDT CPT-38709 Visit 15:59:20 CDT CPT-86517 Visit 16:15:00 CDT CPT-04702 First Vx Component - Ix admin via ID IM or jet inj without physician counseling 15:57:47 CDT CPT-70644 Adacel 15:57:47 CDT CPT-55914 Visit 15:36:49 CDT CPT-70631 Visit 16:25:20 CDT CPT-13801 Sono OB comp > 14 weeks 17:12:58 BUILDING AND GROUNDS SUPERVISOR CPT-39709 Visit 17:03:47 BUILDING AND GROUNDS SUPERVISOR CPT-60620 Visit 16:32:33 BUILDING AND GROUNDS SUPERVISOR CPT-24238 Visit 16:32:21 BUILDING AND GROUNDS SUPERVISOR CPT-57678E Sono OB comp <14 weeks ([place] Only) 17:02:58 BUILDING AND GROUNDS SUPERVISOR CPT-09806 Spec Collection and Handling Fee 16:38:26 BUILDING AND GROUNDS SUPERVISOR CPT-43380 Visit 16:38:26 BUILDING AND GROUNDS SUPERVISOR
--- OUTSIDE RECORDS SUMMARY | 2018-12-09 18:24 | XMS REPORT | Clinical Summary ---
Author Author Admin, TEO Zelaya [facility] Address Unknown Phone Unavailable Allergies, Adverse Reactions, [...] mouth every 4 hours as needed IBUPROFEN [id number] Active Jillina Frazell BURNING PLANT OPERATOR Active PERCOCET 5-325 MG TABS 1 tablet by mouth every 4 hours as needed OXYCODONE-ACETAMINOPHEN 26361003441 Active Jillina Frazell BURNING PLANT OPERATOR Active Advance Directives Directive Description Start Date PERMISSION TO SHARE Immunizations Vaccine Administration Date Value Standard Description Adacel (Tetanus, reduced Diphtheria, and acellular Pertussis Immunization) Adacel [ZDO261] tetanus toxoid, reduced diphtheria toxoid, and acellular [...] 16:10:33 CDT CPT-OV Office Visit 16:10:33 CDT CPT-25079F Sono biophysical pro wo stress test-[place] Only 10:41:52 CDT CPT-61809 Visit 16:43:13 CDT CPT-75282 Visit 08:49:27 CDT CPT-49867 Visit 09:08:50 CDT CPT-56855 Visit 12:21:22 CDT CPT-41435 Visit 11:22:56 CDT CPT-97957 Visit 16:23:29 CDT CPT-32772 Visit 15:59:20 CDT CPT-20019 Visit 16:15:00 CDT CPT-93473 First Vx Component - Ix admin via ID IM or jet inj without physician counseling 15:57:47 CDT CPT-56047 Adacel 15:57:47 CDT CPT-45485 Visit 15:36:49 CDT CPT-07594 Visit 16:25:20 CDT CPT-79562 Sono OB comp > 14 weeks 17:12:58 DIRECTOR CONSTRUCTION SERVICES CPT-21515 Visit 17:03:47 DIRECTOR CONSTRUCTION SERVICES CPT-79308 Visit 16:32:33 DIRECTOR CONSTRUCTION SERVICES CPT-15313 Visit 16:32:21 DIRECTOR CONSTRUCTION SERVICES CPT-65853Z Sono OB comp <14 weeks ([place] Only) 17:02:58 DIRECTOR CONSTRUCTION SERVICES CPT-53482 Spec Collection and Handling Fee 16:38:26 DIRECTOR CONSTRUCTION SERVICES CPT-06902 Visit 16:38:26 DIRECTOR CONSTRUCTION SERVICES
--- OUTSIDE RECORDS SUMMARY | 2018-12-09 18:24 | XMS REPORT | Clinical Summary ---
Author Author Admin, TEO Zelaya [facility] Address Unknown Phone Unavailable Allergies, [...] mouth every 4 hours as needed IBUPROFEN [id number] Active Jillina Frazell CHAIRMAN & CEO Active PERCOCET 5-325 MG TABS 1 tablet by mouth every 4 hours as needed OXYCODONE-ACETAMINOPHEN 54624401051 Active Jillina Frazell CHAIRMAN & CEO Active Advance Directives Directive Description Start Date PERMISSION TO SHARE Immunizations Vaccine Administration Date Value Standard Description Adacel (Tetanus, reduced Diphtheria, and acellular Pertussis Immunization) Adacel [HMB192] tetanus toxoid, reduced diphtheria toxoid, and acellular [...] 16:10:33 CDT CPT-OV Office Visit 16:10:33 CDT CPT-23968H Sono biophysical pro wo stress test-[place] Only 10:41:52 CDT CPT-85698 Visit 16:43:13 CDT CPT-90227 Visit 08:49:27 CDT CPT-34768 Visit 09:08:50 CDT CPT-13067 Visit 12:21:22 CDT CPT-21911 Visit 11:22:56 CDT CPT-32161 Visit 16:23:29 CDT CPT-64550 Visit 15:59:20 CDT CPT-57161 Visit 16:15:00 CDT CPT-09771 First Vx Component - Ix admin via ID IM or jet inj without physician counseling 15:57:47 CDT CPT-35490 Adacel 15:57:47 CDT CPT-41847 Visit 15:36:49 CDT CPT-71273 Visit 16:25:20 CDT CPT-76094 Sono OB comp > 14 weeks 17:12:58 ASSISTANT PROFESSOR SURGICAL TECHNOLOGY CPT-90117 Visit 17:03:47 ASSISTANT PROFESSOR SURGICAL TECHNOLOGY CPT-97117 Visit 16:32:33 ASSISTANT PROFESSOR SURGICAL TECHNOLOGY CPT-13527 Visit 16:32:21 ASSISTANT PROFESSOR SURGICAL TECHNOLOGY CPT-49015V Sono OB comp <14 weeks ([place] Only) 17:02:58 ASSISTANT PROFESSOR SURGICAL TECHNOLOGY CPT-23321 Spec Collection and Handling Fee 16:38:26 ASSISTANT PROFESSOR SURGICAL TECHNOLOGY CPT-83178 Visit 16:38:26 ASSISTANT PROFESSOR SURGICAL TECHNOLOGY
--- OUTSIDE RECORDS SUMMARY | 2018-12-09 18:24 | XMS REPORT | Clinical Summary ---
Author Author Admin, TEO Zelaya [facility] Address Unknown Phone Allergies, Adverse Reactions, Alerts Allergy Name Reaction Description Start Date Severity Status Provider No Known Allergies Sanam Pagan Conditions or Problems Problem Name Problem Code Onset Date Status Entry Date Provider Comment Standard Description Annotate Supervision of other normal V22.1 Active Shakira Nicole MD Supervision of other normal Dyspareunia 625.0 Active Shakira Nicoel MD Dyspareunia Pelvic pain 625.9 Active Shakira [...] Date Value Standard Description Adacel immunization Adacel [OKZ021] tetanus toxoid, reduced diphtheria toxoid, and acellular [...] Procedure Name Date Entry Date Standard Description CPT-03528 Visit 16:15:00 CDT CPT-78261 First Vx Component - Ix admin via ID IM or jet inj without physician counseling 15:57:47 CDT CPT-13808 Adacel 15:57:47 CDT CPT-12947 Visit 15:36:49 CDT CPT-26835 Visit 16:25:20 CDT CPT-82357 Sono OB comp > 14 weeks 17:12:58 MUSCULOSKELETAL PHYSIOTHERAPIST CPT-23963 Visit 17:03:47 MUSCULOSKELETAL PHYSIOTHERAPIST CPT-37218 Visit 16:32:33 MUSCULOSKELETAL PHYSIOTHERAPIST CPT-01383 Visit 16:32:21 MUSCULOSKELETAL PHYSIOTHERAPIST CPT-83788H Sono OB comp <14 weeks ([place] Only) 17:02:58 MUSCULOSKELETAL PHYSIOTHERAPIST CPT-93814 Spec Collection and Handling Fee 16:38:26 MUSCULOSKELETAL PHYSIOTHERAPIST CPT-88420 Visit 16:38:26 MUSCULOSKELETAL PHYSIOTHERAPIST
--- OUTSIDE RECORDS SUMMARY | 2018-12-09 18:25 | XMS REPORT | Clinical Summary ---
Author Author Admin, TEO Zelaya [facility] Address Unknown Phone Allergies, Adverse Reactions, [...] Date Value Standard Description Adacel immunization Adacel [[id number]] tetanus toxoid, reduced diphtheria toxoid, and acellular [...] Procedure Name Date Entry Date Standard Description CPT-15960 Visit 15:59:20 CDT CPT-03652 Visit 16:15:00 CDT CPT-06940 First Vx Component - Ix admin via ID IM or jet inj without physician counseling 15:57:47 CDT CPT-69888 Adacel 15:57:47 CDT CPT-12071 Visit 15:36:49 CDT CPT-62539 Visit 16:25:20 CDT CPT-31232 Sono OB comp > 14 weeks 17:12:58 INSIDE PARTS SALES CPT-13263 Visit 17:03:47 INSIDE PARTS SALES CPT-26982 Visit 16:32:33 INSIDE PARTS SALES CPT-81677 Visit 16:32:21 INSIDE PARTS SALES CPT-22788C Sono OB comp <14 weeks ([place] Only) 17:02:58 INSIDE PARTS SALES CPT-71044 Spec Collection and Handling Fee 16:38:26 INSIDE PARTS SALES CPT-98166 Visit 16:38:26 INSIDE PARTS SALES
--- OUTSIDE RECORDS SUMMARY | 2018-12-09 18:25 | XMS REPORT | Clinical Summary ---
Author Author Admin, TEO Zelaya [facility] Address Unknown Phone Allergies, Adverse Reactions, [...] reduced Diphtheria, and acellular Pertussis Immunization) Adacel [[id number]] tetanus toxoid, reduced diphtheria toxoid, and acellular [...] Procedure Name Date Entry Date Standard Description [facility]-04936 Visit 16:43:13 CDT CPT-73503 Visit 08:49:27 CDT CPT-45606 Visit 09:08:50 CDT CPT-52776 Visit 12:21:22 CDT CPT-14074 Visit 11:22:56 CDT CPT-80161 Visit 16:23:29 CDT CPT-48432 Visit 15:59:20 CDT CPT-92554 Visit 16:15:00 CDT CPT-17138 First Vx Component - Ix admin via ID IM or jet inj without physician counseling 15:57:47 CDT CPT-77686 Adacel 15:57:47 CDT CPT-96215 Visit 15:36:49 CDT CPT-34112 Visit 16:25:20 CDT CPT-14771 Sono OB comp > 14 weeks 17:12:58 SEGMENT PRODUCER CPT-46532 Visit 17:03:47 SEGMENT PRODUCER CPT-19772 Visit 16:32:33 SEGMENT PRODUCER CPT-55570 Visit 16:32:21 SEGMENT PRODUCER CPT-55619G Sono OB comp <14 weeks ([place] Only) 17:02:58 SEGMENT PRODUCER CPT-93686 Spec Collection and Handling Fee 16:38:26 SEGMENT PRODUCER CPT-07675 Visit 16:38:26 SEGMENT PRODUCER
--- OUTSIDE RECORDS SUMMARY | 2018-12-09 18:26 | XMS REPORT | Clinical Summary ---
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 Mario Stover DIMENSION QUARRY SUPERVISOR Benign neoplasm of skin, site unspecified Medication List Medication Instructions Start Date Stop Date Generic Name ND Status Provider Patient Instruction PERCOCET 5-325 MG TABS 1 tablet by mouth every 4 hours as needed OXYCODONE-ACETAMINOPHEN 84206773885 No Longer Active Shakira Nicole MD Active IBUPROFEN 200 MG TAB Take two by mouth every 4 hours as needed IBUPROFEN [id number] No Longer Active Shakira Nicole MD Active IBUPROFEN 200 MG TAB Take two by mouth every 4 hours as needed IBUPROFEN 200 MG TAB 950949 IBUPROFEN Inactive PERCOCET 5-325 MG TABS 1 tablet by mouth every 4 hours as needed PERCOCET 5-325 MG TABS [id number] OXYCODONE-ACETAMINOPHEN Inactive Advance Directives Directive Description Start Date PERMISSION TO SHARE Immunizations Vaccine Administration Date Value Standard Description Adacel immunization Adacel [CQV068] tetanus toxoid, reduced diphtheria toxoid, and acellular pertussis vaccine, adsorbed hepatitis B vaccine series no hepatitis B vaccine, unspecified formulation Vital Signs Date Name Value Unit Range Description blood pressure, diastolic 68 mm[Hg] BP martinez blood pressure, systolic 120 mm[Hg] BP sys height E&M 66 [in_us] Bdy height pulse rate E&M 70 /min Heart rate temperature E&M 97.2 [degF] Body temperature weight E&M 152 [lb_av] Weight Measured blood pressure, diastolic 82 [...] Procedure Name Date Entry Date Standard Description CPT-59604 Visit 16:16:08 CDT CPT-LR Lesion Removal 16:10:33 CDT CPT-OV Office Visit 16:10:33 CDT CPT-37471V Sono biophysical pro wo stress test-[place] Only 10:41:52 CDT CPT-72980 Visit 16:43:13 CDT CPT-23271 Visit 08:49:27 CDT CPT-16770 Visit 09:08:50 CDT CPT-83497 Visit 12:21:22 CDT CPT-08524 Visit 11:22:56 CDT CPT-74475 Visit 16:23:29 CDT CPT-31572 Visit 15:59:20 CDT CPT-89521 Visit 16:15:00 CDT CPT-67808 First Vx Component - Ix admin via ID IM or jet inj without physician counseling 15:57:47 CDT CPT-16126 Adacel 15:57:47 CDT CPT-60357 Visit 15:36:49 CDT CPT-98405 Visit 16:25:20 CDT CPT-91851 Sono OB comp > 14 weeks 17:12:58 CARDIAC CATH LAB RADIOLOGY TECHNOLOGIST CPT-02228 Visit 17:03:47 CARDIAC CATH LAB RADIOLOGY TECHNOLOGIST CPT-59153 Visit 16:32:33 CARDIAC CATH LAB RADIOLOGY TECHNOLOGIST CPT-81269 Visit 16:32:21 CARDIAC CATH LAB RADIOLOGY TECHNOLOGIST CPT-23467M Sono OB comp <14 weeks ([place] Only) 17:02:58 CARDIAC CATH LAB RADIOLOGY TECHNOLOGIST CPT-51791 Spec Collection and Handling Fee 16:38:26 CARDIAC CATH LAB RADIOLOGY TECHNOLOGIST CPT-57337 Visit 16:38:26 CARDIAC CATH LAB RADIOLOGY TECHNOLOGIST
--- OUTSIDE RECORDS SUMMARY | 2018-12-09 18:26 | XMS REPORT | Clinical Summary ---
Author Author Admin, TEO Zelaya [facility] Address Unknown Phone Allergies, Adverse Reactions, Alerts [...] reduced Diphtheria, and acellular Pertussis Immunization) Adacel [TMU340] tetanus toxoid, reduced diphtheria toxoid, and acellular [...] Procedure Name Date Entry Date Standard Description CPT-17984N Sono biophysical pro wo stress test-[place] Only 10:41:52 CDT CPT-46416 Visit 16:43:13 CDT CPT-10162 Visit 08:49:27 CDT CPT-30442 Visit 09:08:50 CDT CPT-59458 Visit 12:21:22 CDT CPT-60225 Visit 11:22:56 CDT CPT-41653 Visit 16:23:29 CDT CPT-59854 Visit 15:59:20 CDT CPT-13759 Visit 16:15:00 CDT CPT-21978 First Vx Component - Ix admin via ID IM or jet inj without physician counseling 15:57:47 CDT CPT-92228 Adacel 15:57:47 CDT CPT-11794 Visit 15:36:49 CDT CPT-06420 Visit 16:25:20 CDT CPT-45046 Sono OB comp > 14 weeks 17:12:58 SUPPLY TECHNICIAN CPT-89201 Visit 17:03:47 SUPPLY TECHNICIAN CPT-40615 Visit 16:32:33 SUPPLY TECHNICIAN CPT-84550 Visit 16:32:21 SUPPLY TECHNICIAN CPT-05765K Sono OB comp <14 weeks ([place] Only) 17:02:58 SUPPLY TECHNICIAN CPT-12109 Spec Collection and Handling Fee 16:38:26 SUPPLY TECHNICIAN CPT-20523 Visit 16:38:26 SUPPLY TECHNICIAN
--- OUTSIDE RECORDS SUMMARY | 2018-12-09 18:26 | XMS REPORT | Clinical Summary ---
Author Author Admin, TEO Zelaya [facility] Address Unknown Phone Allergies, Adverse Reactions, Alerts [...] Date Value Standard Description Adacel immunization Adacel [CHS599] tetanus toxoid, reduced diphtheria toxoid, and acellular [...] Procedure Name Date Entry Date Standard Description CPT-78054 Visit 15:59:20 CDT CPT-30241 Visit 16:15:00 CDT CPT-41953 First Vx Component - Ix admin via ID IM or jet inj without physician counseling 15:57:47 CDT CPT-42228 Adacel 15:57:47 CDT CPT-59278 Visit 15:36:49 CDT CPT-32604 Visit 16:25:20 CDT CPT-94733 Sono OB comp > 14 weeks 17:12:58 HOME CARE AIDE CPT-52920 Visit 17:03:47 HOME CARE AIDE CPT-82245 Visit 16:32:33 HOME CARE AIDE CPT-86224 Visit 16:32:21 HOME CARE AIDE CPT-96877F Sono OB comp <14 weeks ([place] Only) 17:02:58 HOME CARE AIDE CPT-29114 Spec Collection and Handling Fee 16:38:26 HOME CARE AIDE CPT-29184 Visit 16:38:26 HOME CARE AIDE
--- OUTSIDE RECORDS SUMMARY | 2018-12-09 18:27 | XMS REPORT | Clinical Summary ---
Author Author Admin, TEO Zelaya [facility] Address Unknown Phone Allergies, Adverse Reactions, Alerts Allergy Name Reaction Description Start Date Severity Status Provider No Known Allergies Sanam Pagan Conditions or Problems Problem Name Problem Code Onset Date Status Entry Date Provider Comment Standard Description Annotate Supervision of other normal V22.1 Active Shakria Nicole MD Supervision of other normal Dyspareunia [...] Date Value Standard Description Adacel immunization Adacel [RLL697] tetanus toxoid, reduced diphtheria toxoid, and acellular [...] Procedure Name Date Entry Date Standard Description CPT-60551 Visit 16:15:00 CDT CPT-82496 First Vx Component - Ix admin via ID IM or jet inj without physician counseling 15:57:47 CDT CPT-23522 Adacel 15:57:47 CDT CPT-94355 Visit 15:36:49 CDT CPT-50892 Visit 16:25:20 CDT CPT-83220 Sono OB comp > 14 weeks 17:12:58 BLOW PIT OPERATOR CPT-78834 Visit 17:03:47 BLOW PIT OPERATOR CPT-10049 Visit 16:32:33 BLOW PIT OPERATOR CPT-18683 Visit 16:32:21 BLOW PIT OPERATOR CPT-07587L Sono OB comp <14 weeks ([place] Only) 17:02:58 BLOW PIT OPERATOR CPT-41101 Spec Collection and Handling Fee 16:38:26 BLOW PIT OPERATOR CPT-71461 Visit 16:38:26 BLOW PIT OPERATOR
--- OUTSIDE RECORDS SUMMARY | 2018-12-09 18:27 | XMS REPORT | Clinical Summary ---
Author Author Admin, TEO Zelaya [facility] Address Unknown Phone Allergies, Adverse Reactions, Alerts [...] Prescribed - none known did ask Sanam Pgaan Advance Directives Directive Description Start Date PERMISSION TO SHARE Immunizations Vaccine Administration Date Value Standard Description Adacel (Tetanus, reduced Diphtheria, and acellular Pertussis Immunization) Adacel [CUZ993] tetanus toxoid, reduced diphtheria toxoid, and acellular pertussis vaccine, adsorbed hepatitis B vaccine series no hepatitis B vaccine, unspecified formulation Vital Signs Date Name Value Unit Range Description blood pressure, diastolic - 8462-4 75 mm[Hg] [...] Procedure Name Date Entry Date Standard Description CPT-39100 Visit 16:23:29 CDT CPT-09968 Visit 15:59:20 CDT CPT-49544 Visit 16:15:00 CDT CPT-27441 First Vx Component - Ix admin via ID IM or jet inj without physician counseling 15:57:47 CDT CPT-91020 Adacel 15:57:47 CDT CPT-96617 Visit 15:36:49 CDT CPT-06397 Visit 16:25:20 CDT CPT-13556 Sono OB comp > 14 weeks 17:12:58 ROOFER VINYL COATING CPT-75675 Visit 17:03:47 ROOFER VINYL COATING CPT-89800 Visit 16:32:33 ROOFER VINYL COATING CPT-51052 Visit 16:32:21 ROOFER VINYL COATING CPT-41669W Sono OB comp <14 weeks ([place] Only) 17:02:58 ROOFER VINYL COATING CPT-61056 Spec Collection and Handling Fee 16:38:26 ROOFER VINYL COATING CPT-85032 Visit 16:38:26 ROOFER VINYL COATING
--- OUTSIDE RECORDS SUMMARY | 2018-12-09 18:27 | XMS REPORT | Clinical Summary ---
Author Author Admin, TEO Zelaya [facility] Address Unknown Phone Allergies, Adverse Reactions, [...] Date Value Standard Description Adacel immunization Adacel [BDD937] tetanus toxoid, reduced diphtheria toxoid, and acellular [...] Procedure Name Date Entry Date Standard Description CPT-54363 Visit 15:59:20 CDT CPT-86302 Visit 16:15:00 CDT CPT-48574 First Vx Component - Ix admin via ID IM or jet inj without physician counseling 15:57:47 CDT CPT-95868 Adacel 15:57:47 CDT CPT-86973 Visit 15:36:49 CDT CPT-06139 Visit 16:25:20 CDT CPT-63442 Sono OB comp > 14 weeks 17:12:58 LINE FIXER CPT-49551 Visit 17:03:47 LINE FIXER CPT-40096 Visit 16:32:33 LINE FIXER CPT-38111 Visit 16:32:21 LINE FIXER CPT-08866Y Sono OB comp <14 weeks ([place] Only) 17:02:58 LINE FIXER CPT-84673 Spec Collection and Handling Fee 16:38:26 LINE FIXER CPT-44660 Visit 16:38:26 LINE FIXER
--- OUTSIDE RECORDS SUMMARY | 2018-12-09 18:27 | XMS REPORT | Clinical Summary ---
Author Author Admin, TEO Zelaya [facility] Address Unknown Phone Allergies, Adverse Reactions, Alerts [...] reduced Diphtheria, and acellular Pertussis Immunization) Adacel [KDL697] tetanus toxoid, reduced diphtheria toxoid, and acellular [...] Procedure Name Date Entry Date Standard Description CPT-48780 Visit 16:23:29 CDT CPT-21834 Visit 15:59:20 CDT CPT-39255 Visit 16:15:00 CDT CPT-86688 First Vx Component - Ix admin via ID IM or jet inj without physician counseling 15:57:47 CDT CPT-81600 Adacel 15:57:47 CDT CPT-41571 Visit 15:36:49 CDT CPT-80204 Visit 16:25:20 CDT CPT-55296 Sono OB comp > 14 weeks 17:12:58 MOLDED GOODS SPOT PICKER CPT-85265 Visit 17:03:47 MOLDED GOODS SPOT PICKER CPT-13890 Visit 16:32:33 MOLDED GOODS SPOT PICKER CPT-42119 Visit 16:32:21 MOLDED GOODS SPOT PICKER CPT-76122G Sono OB comp <14 weeks ([place] Only) 17:02:58 MOLDED GOODS SPOT PICKER CPT-59006 Spec Collection and Handling Fee 16:38:26 MOLDED GOODS SPOT PICKER CPT-69661 Visit 16:38:26 MOLDED GOODS SPOT PICKER
--- OUTSIDE RECORDS SUMMARY | 2018-12-09 18:28 | XMS REPORT | Clinical Summary ---
Author Author Admin, TEO Zelaya [facility] Address Unknown Phone Allergies, Adverse [...] Date Value Standard Description Adacel immunization Adacel [LDN598] tetanus toxoid, reduced diphtheria toxoid, and acellular [...] Procedure Name Date Entry Date Standard Description CPT-32704 Visit 16:15:00 CDT CPT-17647 First Vx Component - Ix admin via ID IM or jet inj without physician counseling 15:57:47 CDT CPT-54781 Adacel 15:57:47 CDT CPT-57174 Visit 15:36:49 CDT CPT-07944 Visit 16:25:20 CDT CPT-35502 Sono OB comp > 14 weeks 17:12:58 SUPPLIER DIVERSITY DIRECTOR CPT-93900 Visit 17:03:47 SUPPLIER DIVERSITY DIRECTOR CPT-96471 Visit 16:32:33 SUPPLIER DIVERSITY DIRECTOR CPT-40567 Visit 16:32:21 SUPPLIER DIVERSITY DIRECTOR CPT-67315U Sono OB comp <14 weeks ([place] Only) 17:02:58 SUPPLIER DIVERSITY DIRECTOR CPT-15934 Spec Collection and Handling Fee 16:38:26 SUPPLIER DIVERSITY DIRECTOR CPT-00160 Visit 16:38:26 SUPPLIER DIVERSITY DIRECTOR
--- OUTSIDE RECORDS SUMMARY | 2018-12-09 18:28 | XMS REPORT | Clinical Summary ---
Author Author Admin, TEO Zelaya [facility] Address Unknown Phone Allergies, Adverse Reactions, Alerts [...] Therapy Prescribed - none known did ask Jessie Coles Advance Directives Directive Description Start Date PERMISSION TO SHARE Immunizations Vaccine Administration Date Value Standard Description Adacel (Tetanus, reduced Diphtheria, and acellular Pertussis Immunization) Adacel [YJN706] tetanus toxoid, reduced diphtheria toxoid, and acellular pertussis vaccine, adsorbed hepatitis B vaccine series no hepatitis B vaccine, unspecified formulation Vital Signs Date Name Value Unit Range Description blood pressure, diastolic - 8462-4 80 mm[Hg] [...] Procedure Name Date Entry Date Standard Description [facility]-44419 Visit 11:22:56 CDT CPT-62901 Visit 16:23:29 CDT CPT-28087 Visit 15:59:20 CDT CPT-59514 Visit 16:15:00 CDT CPT-20720 First Vx Component - Ix admin via ID IM or jet inj without physician counseling 15:57:47 CDT CPT-26053 Adacel 15:57:47 CDT CPT-98620 Visit 15:36:49 CDT CPT-70181 Visit 16:25:20 CDT CPT-28402 Sono OB comp > 14 weeks 17:12:58 RECORDS COORDINATOR CPT-20435 Visit 17:03:47 RECORDS COORDINATOR CPT-58693 Visit 16:32:33 RECORDS COORDINATOR CPT-70918 Visit 16:32:21 RECORDS COORDINATOR CPT-27246S Sono OB comp <14 weeks ([place] Only) 17:02:58 RECORDS COORDINATOR CPT-15823 Spec Collection and Handling Fee 16:38:26 RECORDS COORDINATOR CPT-33127 Visit 16:38:26 RECORDS COORDINATOR
--- OUTSIDE RECORDS SUMMARY | 2018-12-09 18:28 | XMS REPORT | Clinical Summary ---
Author Author Admin, TEO Zelaya [facility] Address Unknown Phone Unavailable Allergies, [...] mouth every 4 hours as needed IBUPROFEN 12997023772 Active Jillina Frazell IT BUSINESS ANALYST Active PERCOCET 5-325 MG TABS 1 tablet by mouth every 4 hours as needed OXYCODONE-ACETAMINOPHEN 46124692958 Active Jillina Frazell IT BUSINESS ANALYST Active Advance Directives Directive Description Start Date PERMISSION TO SHARE Immunizations Vaccine Administration Date Value Standard Description Adacel (Tetanus, reduced Diphtheria, and acellular Pertussis Immunization) Adacel [YVB159] tetanus toxoid, reduced diphtheria toxoid, and acellular [...] 16:10:33 CDT CPT-OV Office Visit 16:10:33 CDT CPT-96268B Sono biophysical pro wo stress test-[place] Only 10:41:52 CDT CPT-48988 Visit 16:43:13 CDT CPT-30615 Visit 08:49:27 CDT CPT-66639 Visit 09:08:50 CDT CPT-60460 Visit 12:21:22 CDT CPT-97574 Visit 11:22:56 CDT CPT-79636 Visit 16:23:29 CDT CPT-13893 Visit 15:59:20 CDT CPT-38745 Visit 16:15:00 CDT CPT-63338 First Vx Component - Ix admin via ID IM or jet inj without physician counseling 15:57:47 CDT CPT-98659 Adacel 15:57:47 CDT CPT-59348 Visit 15:36:49 CDT CPT-60916 Visit 16:25:20 CDT CPT-64091 Sono OB comp > 14 weeks 17:12:58 STORM CHASER CPT-58366 Visit 17:03:47 STORM CHASER CPT-96106 Visit 16:32:33 STORM CHASER CPT-21925 Visit 16:32:21 STORM CHASER CPT-48104F Sono OB comp <14 weeks ([place] Only) 17:02:58 STORM CHASER CPT-31736 Spec Collection and Handling Fee 16:38:26 STORM CHASER CPT-29501 Visit 16:38:26 STORM CHASER
--- OUTSIDE RECORDS SUMMARY | 2018-12-09 18:29 | XMS REPORT | Clinical Summary ---
Author Author Admin, TEO Zelaya [facility] Address Unknown Phone Unavailable Allergies, Adverse [...] mouth every 4 hours as needed IBUPROFEN 30416306198 Active Jillina Frazell LANDSCAPE MANAGEMENT TECHNICIAN Active PERCOCET 5-325 MG TABS 1 tablet by mouth every 4 hours as needed OXYCODONE-ACETAMINOPHEN 25265313902 Active Jillina Frazell LANDSCAPE MANAGEMENT TECHNICIAN Active Advance Directives Directive Description Start Date PERMISSION TO SHARE Immunizations Vaccine Administration Date Value Standard Description Adacel (Tetanus, reduced Diphtheria, and acellular Pertussis Immunization) Adacel [SSP675] tetanus toxoid, reduced diphtheria toxoid, and acellular [...] 16:10:33 CDT CPT-OV Office Visit 16:10:33 CDT CPT-61538I Sono biophysical pro wo stress test-[place] Only 10:41:52 CDT CPT-59329 Visit 16:43:13 CDT CPT-80968 Visit 08:49:27 CDT CPT-27211 Visit 09:08:50 CDT CPT-50066 Visit 12:21:22 CDT CPT-75536 Visit 11:22:56 CDT CPT-58883 Visit 16:23:29 CDT CPT-66266 Visit 15:59:20 CDT CPT-42360 Visit 16:15:00 CDT CPT-16095 First Vx Component - Ix admin via ID IM or jet inj without physician counseling 15:57:47 CDT CPT-80288 Adacel 15:57:47 CDT CPT-79653 Visit 15:36:49 CDT CPT-38463 Visit 16:25:20 CDT CPT-97313 Sono OB comp > 14 weeks 17:12:58 TURF FARM WORKER CPT-71201 Visit 17:03:47 TURF FARM WORKER CPT-74925 Visit 16:32:33 TURF FARM WORKER CPT-51020 Visit 16:32:21 TURF FARM WORKER CPT-00200E Sono OB comp <14 weeks ([place] Only) 17:02:58 TURF FARM WORKER CPT-46824 Spec Collection and Handling Fee 16:38:26 TURF FARM WORKER CPT-12930 Visit 16:38:26 TURF FARM WORKER
--- OUTSIDE RECORDS SUMMARY | 2018-12-09 18:29 | XMS REPORT | Clinical Summary ---
Author Author Admin, TEO Zelaya [facility] Address Unknown Phone Allergies, Adverse [...] Date Value Standard Description Adacel immunization Adacel [FQF091] tetanus toxoid, reduced diphtheria toxoid, and acellular [...] Procedure Name Date Entry Date Standard Description CPT-10858 Visit 16:15:00 CDT CPT-33800 First Vx Component - Ix admin via ID IM or jet inj without physician counseling 15:57:47 CDT CPT-84292 Adacel 15:57:47 CDT CPT-78219 Visit 15:36:49 CDT CPT-24779 Visit 16:25:20 CDT CPT-85795 Sono OB comp > 14 weeks 17:12:58 PRINCIPAL SYSTEMS ARCHITECT CPT-59991 Visit 17:03:47 PRINCIPAL SYSTEMS ARCHITECT CPT-69192 Visit 16:32:33 PRINCIPAL SYSTEMS ARCHITECT CPT-95140 Visit 16:32:21 PRINCIPAL SYSTEMS ARCHITECT CPT-10630A Sono OB comp <14 weeks ([place] Only) 17:02:58 PRINCIPAL SYSTEMS ARCHITECT CPT-84375 Spec Collection and Handling Fee 16:38:26 PRINCIPAL SYSTEMS ARCHITECT CPT-80058 Visit 16:38:26 PRINCIPAL SYSTEMS ARCHITECT
--- OUTSIDE RECORDS SUMMARY | 2018-12-09 18:30 | XMS REPORT | Clinical Summary ---
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 Maroi Stover BODY AND FRAME TECHNICIAN Benign neoplasm of skin, site unspecified Medication List Medication Instructions Start Date Stop Date Generic Name ND Status Provider Patient Instruction PERCOCET 5-325 MG TABS 1 tablet by mouth every 4 hours as needed OXYCODONE-ACETAMINOPHEN 62591874627 No Longer Active Shakira Nicole MD Active IBUPROFEN 200 MG TAB Take two by mouth every 4 hours as needed IBUPROFEN 66727400736 No Longer Active Shakira Nicole MD Active IBUPROFEN 200 MG TAB Take two by mouth every 4 hours as needed IBUPROFEN 200 MG TAB 887242 IBUPROFEN Inactive PERCOCET 5-325 MG TABS 1 tablet by mouth every 4 hours as needed PERCOCET 5-325 MG TABS [id number] OXYCODONE-ACETAMINOPHEN Inactive Advance Directives Directive Description Start Date PERMISSION TO SHARE Immunizations Vaccine Administration Date Value Standard Description Adacel immunization Adacel [JME750] tetanus toxoid, reduced diphtheria toxoid, and acellular [...] Procedure Name Date Entry Date Standard Description CPT-69374 Visit 16:16:08 CDT CPT-LR Lesion Removal 16:10:33 CDT CPT-OV Office Visit 16:10:33 CDT CPT-02561K Sono biophysical pro wo stress test-[place] Only 10:41:52 CDT CPT-02926 Visit 16:43:13 CDT CPT-56117 Visit 08:49:27 CDT CPT-18917 Visit 09:08:50 CDT CPT-00860 Visit 12:21:22 CDT CPT-53453 Visit 11:22:56 CDT CPT-96398 Visit 16:23:29 CDT CPT-00263 Visit 15:59:20 CDT CPT-73236 Visit 16:15:00 CDT CPT-12716 First Vx Component - Ix admin via ID IM or jet inj without physician counseling 15:57:47 CDT CPT-24977 Adacel 15:57:47 CDT CPT-16043 Visit 15:36:49 CDT CPT-06966 Visit 16:25:20 CDT CPT-30276 Sono OB comp > 14 weeks 17:12:58 HUMAN RESOURCE MANAGER CPT-03635 Visit 17:03:47 HUMAN RESOURCE MANAGER CPT-53896 Visit 16:32:33 HUMAN RESOURCE MANAGER CPT-48688 Visit 16:32:21 HUMAN RESOURCE MANAGER CPT-52143M Sono OB comp <14 weeks ([place] Only) 17:02:58 HUMAN RESOURCE MANAGER CPT-85931 Spec Collection and Handling Fee 16:38:26 HUMAN RESOURCE MANAGER CPT-29698 Visit 16:38:26 HUMAN RESOURCE MANAGER
--- OUTSIDE RECORDS SUMMARY | 2018-12-09 18:30 | XMS REPORT | Clinical Summary ---
Author Author Admin, TEO Zelaya [facility] Address Unknown Phone Unavailable Allergies, Adverse Reactions, [...] mouth every 4 hours as needed IBUPROFEN [id number] Active Jillina Frazell POLE MAKER Active PERCOCET 5-325 MG TABS 1 tablet by mouth every 4 hours as needed OXYCODONE-ACETAMINOPHEN [id number] Active Jillina Frazell POLE MAKER Active Advance Directives Directive Description Start Date PERMISSION TO SHARE Immunizations Vaccine Administration Date Value Standard Description Adacel (Tetanus, reduced Diphtheria, and acellular Pertussis Immunization) Adacel [[id number]] tetanus toxoid, reduced diphtheria toxoid, and acellular [...] 16:10:33 CDT CPT-OV Office Visit 16:10:33 CDT CPT-96218F Sono biophysical pro wo stress test-[place] Only 10:41:52 CDT CPT-32697 Visit 16:43:13 CDT CPT-55570 Visit 08:49:27 CDT CPT-64561 Visit 09:08:50 CDT CPT-96878 Visit 12:21:22 CDT CPT-65955 Visit 11:22:56 CDT CPT-06461 Visit 16:23:29 CDT CPT-27162 Visit 15:59:20 CDT CPT-75317 Visit 16:15:00 CDT CPT-76074 First Vx Component - Ix admin via ID IM or jet inj without physician counseling 15:57:47 CDT CPT-19957 Adacel 15:57:47 CDT CPT-23967 Visit 15:36:49 CDT CPT-62851 Visit 16:25:20 CDT CPT-15713 Sono OB comp > 14 weeks 17:12:58 DENITRATOR CPT-67882 Visit 17:03:47 DENITRATOR CPT-43049 Visit 16:32:33 DENITRATOR CPT-71957 Visit 16:32:21 DENITRATOR CPT-91853G Sono OB comp <14 weeks ([place] Only) 17:02:58 DENITRATOR CPT-06938 Spec Collection and Handling Fee 16:38:26 DENITRATOR CPT-28965 Visit 16:38:26 DENITRATOR
--- OUTSIDE RECORDS SUMMARY | 2018-12-09 18:30 | XMS REPORT | Clinical Summary ---
Author Author Admin, TEO Zelaya [facility] Address Unknown Phone Unavailable Allergies, Adverse Reactions, [...] mouth every 4 hours as needed IBUPROFEN [id number] Active Jillina Frazell DRY CANS BACK TENDER Active PERCOCET 5-325 MG TABS 1 tablet by mouth every 4 hours as needed OXYCODONE-ACETAMINOPHEN [id number] Active Jillina Frazell DRY CANS BACK TENDER Active Advance Directives Directive Description Start Date PERMISSION TO SHARE Immunizations Vaccine Administration Date Value Standard Description Adacel (Tetanus, reduced Diphtheria, and acellular Pertussis Immunization) Adacel [[id number]] tetanus toxoid, reduced diphtheria toxoid, and acellular [...] 16:10:33 CDT CPT-OV Office Visit 16:10:33 CDT CPT-43934B Sono biophysical pro wo stress test-[place] Only 10:41:52 CDT CPT-25191 Visit 16:43:13 CDT CPT-75168 Visit 08:49:27 CDT CPT-17709 Visit 09:08:50 CDT CPT-68917 Visit 12:21:22 CDT CPT-59704 Visit 11:22:56 CDT CPT-67273 Visit 16:23:29 CDT CPT-50251 Visit 15:59:20 CDT CPT-87023 Visit 16:15:00 CDT CPT-75413 First Vx Component - Ix admin via ID IM or jet inj without physician counseling 15:57:47 CDT CPT-41329 Adacel 15:57:47 CDT CPT-92080 Visit 15:36:49 CDT CPT-60469 Visit 16:25:20 CDT CPT-58607 Sono OB comp > 14 weeks 17:12:58 BRAND DIRECTOR CPT-52510 Visit 17:03:47 BRAND DIRECTOR CPT-68962 Visit 16:32:33 BRAND DIRECTOR CPT-22825 Visit 16:32:21 BRAND DIRECTOR CPT-29749N Sono OB comp <14 weeks ([place] Only) 17:02:58 BRAND DIRECTOR CPT-33992 Spec Collection and Handling Fee 16:38:26 BRAND DIRECTOR CPT-54010 Visit 16:38:26 BRAND DIRECTOR
--- OUTSIDE RECORDS SUMMARY | 2018-12-09 18:31 | XMS REPORT | Clinical Summary ---
[...] Date Value Standard Description Adacel immunization Adacel [[id number]] tetanus toxoid, reduced diphtheria toxoid, and acellular [...] Procedure Name Date Entry Date Standard Description CPT-84068 Visit 15:59:20 CDT CPT-77956 Visit 16:15:00 CDT CPT-78036 First Vx Component - Ix admin via ID IM or jet inj without physician counseling 15:57:47 CDT CPT-95195 Adacel 15:57:47 CDT CPT-89299 Visit 15:36:49 CDT CPT-97737 Visit 16:25:20 CDT CPT-01578 Sono OB comp > 14 weeks 17:12:58 EXPERIMENTAL PSYCHOLOGIST CPT-31998 Visit 17:03:47 EXPERIMENTAL PSYCHOLOGIST CPT-83833 Visit 16:32:33 EXPERIMENTAL PSYCHOLOGIST CPT-35200 Visit 16:32:21 EXPERIMENTAL PSYCHOLOGIST CPT-70315Y Sono OB comp <14 weeks ([place] Only) 17:02:58 EXPERIMENTAL PSYCHOLOGIST CPT-52265 Spec Collection and Handling Fee 16:38:26 EXPERIMENTAL PSYCHOLOGIST CPT-45194 Visit 16:38:26 EXPERIMENTAL PSYCHOLOGIST
--- OUTSIDE RECORDS SUMMARY | 2018-12-09 18:31 | XMS REPORT | Clinical Summary ---
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 Mario Stover METALLURGICAL ANALYST Benign neoplasm of skin, site unspecified Medication List Medication Instructions Start Date Stop Date Generic Name ND Status Provider Patient Instruction PERCOCET 5-325 MG TABS 1 tablet by mouth every 4 hours as needed OXYCODONE-ACETAMINOPHEN [id number] No Longer Active Shakira Nicole MD Active IBUPROFEN 200 MG TAB Take two by mouth every 4 hours as needed IBUPROFEN [id number] No Longer Active Shakira Nicole MD Active IBUPROFEN 200 MG TAB Take two by mouth every 4 hours as needed IBUPROFEN 200 MG TAB [id number] IBUPROFEN Inactive PERCOCET 5-325 MG TABS 1 tablet by mouth every 4 hours as needed PERCOCET 5-325 MG TABS [id number] OXYCODONE-ACETAMINOPHEN Inactive Advance Directives Directive Description Start Date PERMISSION TO SHARE Immunizations Vaccine Administration Date Value Standard Description Adacel (Tetanus, reduced Diphtheria, and acellular Pertussis Immunization) Adacel [QNI200] tetanus toxoid, reduced diphtheria toxoid, and acellular [...] Procedure Name Date Entry Date Standard Description CPT-65806 Visit 16:16:08 CDT CPT-LR Lesion Removal 16:10:33 CDT CPT-OV Office Visit 16:10:33 CDT CPT-96747Y Sono biophysical pro wo stress test-[place] Only 10:41:52 CDT CPT-27540 Visit 16:43:13 CDT CPT-39054 Visit 08:49:27 CDT CPT-03066 Visit 09:08:50 CDT CPT-74763 Visit 12:21:22 CDT CPT-42505 Visit 11:22:56 CDT CPT-61700 Visit 16:23:29 CDT CPT-09727 Visit 15:59:20 CDT CPT-74542 Visit 16:15:00 CDT CPT-18688 First Vx Component - Ix admin via ID IM or jet inj without physician counseling 15:57:47 CDT CPT-30114 Adacel 15:57:47 CDT CPT-11722 Visit 15:36:49 CDT CPT-37135 Visit 16:25:20 CDT CPT-69078 Sono OB comp > 14 weeks 17:12:58 BUDGET ASSISTANT CPT-30069 Visit 17:03:47 BUDGET ASSISTANT CPT-46048 Visit 16:32:33 BUDGET ASSISTANT CPT-35194 Visit 16:32:21 BUDGET ASSISTANT CPT-17936B Sono OB comp <14 weeks ([place] Only) 17:02:58 BUDGET ASSISTANT CPT-72405 Spec Collection and Handling Fee 16:38:26 BUDGET ASSISTANT CPT-28466 Visit 16:38:26 BUDGET ASSISTANT
--- OUTSIDE RECORDS SUMMARY | 2018-12-09 18:31 | XMS REPORT | Clinical Summary ---
[...] reduced Diphtheria, and acellular Pertussis Immunization) Adacel [ZFM908] tetanus toxoid, reduced diphtheria toxoid, and acellular [...] Procedure Name Date Entry Date Standard Description CPT-52620 Visit 16:23:29 CDT CPT-54980 Visit 15:59:20 CDT CPT-95307 Visit 16:15:00 CDT CPT-33266 First Vx Component - Ix admin via ID IM or jet inj without physician counseling 15:57:47 CDT CPT-73891 Adacel 15:57:47 CDT CPT-28712 Visit 15:36:49 CDT CPT-89496 Visit 16:25:20 CDT CPT-27264 Sono OB comp > 14 weeks 17:12:58 CELL TECHNICIAN CPT-76710 Visit 17:03:47 CELL TECHNICIAN CPT-86619 Visit 16:32:33 CELL TECHNICIAN CPT-99640 Visit 16:32:21 CELL TECHNICIAN CPT-68849U Sono OB comp <14 weeks ([place] Only) 17:02:58 CELL TECHNICIAN CPT-46980 Spec Collection and Handling Fee 16:38:26 CELL TECHNICIAN CPT-45043 Visit 16:38:26 CELL TECHNICIAN
--- OUTSIDE RECORDS SUMMARY | 2018-12-09 18:32 | XMS REPORT | Clinical Summary ---
Author Author Admin, TEO Zelaya [facility] Address Unknown Phone Allergies, Adverse Reactions, [...] reduced Diphtheria, and acellular Pertussis Immunization) Adacel [PGB908] tetanus toxoid, reduced diphtheria toxoid, and acellular [...] Procedure Name Date Entry Date Standard Description CPT-17317 Visit 16:23:29 CDT CPT-24089 Visit 15:59:20 CDT CPT-14503 Visit 16:15:00 CDT CPT-09010 First Vx Component - Ix admin via ID IM or jet inj without physician counseling 15:57:47 CDT CPT-01797 Adacel 15:57:47 CDT CPT-39558 Visit 15:36:49 CDT CPT-89692 Visit 16:25:20 CDT CPT-11064 Sono OB comp > 14 weeks 17:12:58 CORPORATE DEVELOPMENT ASSOCIATE CPT-14130 Visit 17:03:47 CORPORATE DEVELOPMENT ASSOCIATE CPT-78507 Visit 16:32:33 CORPORATE DEVELOPMENT ASSOCIATE CPT-10162 Visit 16:32:21 CORPORATE DEVELOPMENT ASSOCIATE CPT-74115J Sono OB comp <14 weeks ([place] Only) 17:02:58 CORPORATE DEVELOPMENT ASSOCIATE CPT-22631 Spec Collection and Handling Fee 16:38:26 CORPORATE DEVELOPMENT ASSOCIATE CPT-48079 Visit 16:38:26 CORPORATE DEVELOPMENT ASSOCIATE
--- OUTSIDE RECORDS SUMMARY | 2018-12-09 18:32 | XMS REPORT | Clinical Summary ---
Author Author Admin, TEO Zelaya [facility] Address Unknown Phone Allergies, Adverse [...] Date Value Standard Description Adacel immunization Adacel [TEP604] tetanus toxoid, reduced diphtheria toxoid, and acellular [...] Procedure Name Date Entry Date Standard Description CPT-08696 Visit 16:15:00 CDT CPT-57376 First Vx Component - Ix admin via ID IM or jet inj without physician counseling 15:57:47 CDT CPT-85939 Adacel 15:57:47 CDT CPT-58326 Visit 15:36:49 CDT CPT-91290 Visit 16:25:20 CDT CPT-09614 Sono OB comp > 14 weeks 17:12:58 HYBRID CAR MECHANIC CPT-28197 Visit 17:03:47 HYBRID CAR MECHANIC CPT-06850 Visit 16:32:33 HYBRID CAR MECHANIC CPT-80524 Visit 16:32:21 HYBRID CAR MECHANIC CPT-04404E Sono OB comp <14 weeks ([place] Only) 17:02:58 HYBRID CAR MECHANIC CPT-31660 Spec Collection and Handling Fee 16:38:26 HYBRID CAR MECHANIC CPT-21526 Visit 16:38:26 HYBRID CAR MECHANIC
--- OUTSIDE RECORDS SUMMARY | 2018-12-09 18:32 | XMS REPORT | Clinical Summary ---
Author Author Admin, TEO Zelaya [facility] Address Unknown Phone Allergies, Adverse Reactions, Alerts Allergy Name Reaction Description Start Date Severity Status Provider No Known Allergies Sanam Pagan Conditions or Problems Problem Name Problem Code Onset Date Status Entry Date Provider Comment Standard Description Annotate Supervision of other normal V22.1 Active Shakira Nicoel MD Supervision of other normal Dyspareunia 625.0 [...] reduced Diphtheria, and acellular Pertussis Immunization) Adacel [OEC723] tetanus toxoid, reduced diphtheria toxoid, and acellular [...] Procedure Name Date Entry Date Standard Description CPT-78041F Sono biophysical pro wo stress test-[place] Only 10:41:52 CDT CPT-45235 Visit 16:43:13 CDT CPT-61805 Visit 08:49:27 CDT CPT-15833 Visit 09:08:50 CDT CPT-93891 Visit 12:21:22 CDT CPT-21417 Visit 11:22:56 CDT CPT-15035 Visit 16:23:29 CDT CPT-89183 Visit 15:59:20 CDT CPT-89989 Visit 16:15:00 CDT CPT-52445 First Vx Component - Ix admin via ID IM or jet inj without physician counseling 15:57:47 CDT CPT-28685 Adacel 15:57:47 CDT CPT-12364 Visit 15:36:49 CDT CPT-05761 Visit 16:25:20 CDT CPT-81511 Sono OB comp > 14 weeks 17:12:58 MIDDLE SCHOOL SPECIAL EDUCATION TEACHER CPT-17895 Visit 17:03:47 MIDDLE SCHOOL SPECIAL EDUCATION TEACHER CPT-94777 Visit 16:32:33 MIDDLE SCHOOL SPECIAL EDUCATION TEACHER CPT-95634 Visit 16:32:21 MIDDLE SCHOOL SPECIAL EDUCATION TEACHER CPT-95200T Sono OB comp <14 weeks ([place] Only) 17:02:58 MIDDLE SCHOOL SPECIAL EDUCATION TEACHER CPT-27550 Spec Collection and Handling Fee 16:38:26 MIDDLE SCHOOL SPECIAL EDUCATION TEACHER CPT-13622 Visit 16:38:26 MIDDLE SCHOOL SPECIAL EDUCATION TEACHER
--- OUTSIDE RECORDS SUMMARY | 2018-12-09 18:33 | XMS REPORT | Clinical Summary ---
Author Author Admin, TEO Zelaya [facility] Address Unknown Phone Allergies, Adverse [...] Date Value Standard Description Adacel immunization Adacel [IWB595] tetanus toxoid, reduced diphtheria toxoid, and acellular [...] Procedure Name Date Entry Date Standard Description CPT-59619 Visit 15:59:20 CDT CPT-41106 Visit 16:15:00 CDT CPT-18718 First Vx Component - Ix admin via ID IM or jet inj without physician counseling 15:57:47 CDT CPT-45733 Adacel 15:57:47 CDT CPT-50241 Visit 15:36:49 CDT CPT-50789 Visit 16:25:20 CDT CPT-21932 Sono OB comp > 14 weeks 17:12:58 TIPPLE TENDER CPT-78333 Visit 17:03:47 TIPPLE TENDER CPT-56530 Visit 16:32:33 TIPPLE TENDER CPT-47959 Visit 16:32:21 TIPPLE TENDER CPT-76974P Sono OB comp <14 weeks ([place] Only) 17:02:58 TIPPLE TENDER CPT-96470 Spec Collection and Handling Fee 16:38:26 TIPPLE TENDER CPT-36103 Visit 16:38:26 TIPPLE TENDER
--- OUTSIDE RECORDS SUMMARY | 2018-12-09 18:33 | XMS REPORT | Clinical Summary ---
Author Author Admin, TEO Zelaya [facility] Address Unknown Phone Allergies, Adverse Reactions, [...] genital organs Rh factor, negative 656.10 Active Shaikra Nicole MD Rhesus isoimmunization affecting management of [...] reduced Diphtheria, and acellular Pertussis Immunization) Adacel [SBL674] tetanus toxoid, reduced diphtheria toxoid, and acellular [...] Procedure Name Date Entry Date Standard Description CPT-54517 Visit 16:23:29 CDT CPT-00842 Visit 15:59:20 CDT CPT-08268 Visit 16:15:00 CDT CPT-81323 First Vx Component - Ix admin via ID IM or jet inj without physician counseling 15:57:47 CDT CPT-18496 Adacel 15:57:47 CDT CPT-29318 Visit 15:36:49 CDT CPT-90361 Visit 16:25:20 CDT CPT-62118 Sono OB comp > 14 weeks 17:12:58 ESCALATOR CONSTRUCTOR CPT-28369 Visit 17:03:47 ESCALATOR CONSTRUCTOR CPT-92652 Visit 16:32:33 ESCALATOR CONSTRUCTOR CPT-11651 Visit 16:32:21 ESCALATOR CONSTRUCTOR CPT-65960X Sono OB comp <14 weeks ([place] Only) 17:02:58 ESCALATOR CONSTRUCTOR CPT-56197 Spec Collection and Handling Fee 16:38:26 ESCALATOR CONSTRUCTOR CPT-36386 Visit 16:38:26 ESCALATOR CONSTRUCTOR
--- OUTSIDE RECORDS SUMMARY | 2018-12-09 18:33 | XMS REPORT | Clinical Summary ---
Author Author Admin, TEO Zelaya [facility] Address Unknown Phone Allergies, Adverse [...] reduced Diphtheria, and acellular Pertussis Immunization) Adacel [CFE700] tetanus toxoid, reduced diphtheria toxoid, and acellular [...] Procedure Name Date Entry Date Standard Description CPT-47841 Visit 09:08:50 CDT CPT-27754 Visit 12:21:22 CDT CPT-33880 Visit 11:22:56 CDT CPT-02129 Visit 16:23:29 CDT CPT-65821 Visit 15:59:20 CDT CPT-97648 Visit 16:15:00 CDT CPT-89591 First Vx Component - Ix admin via ID IM or jet inj without physician counseling 15:57:47 CDT CPT-77588 Adacel 15:57:47 CDT CPT-02592 Visit 15:36:49 CDT CPT-23029 Visit 16:25:20 CDT CPT-72870 Sono OB comp > 14 weeks 17:12:58 MANAGED CARE DIRECTOR CPT-00721 Visit 17:03:47 MANAGED CARE DIRECTOR CPT-91909 Visit 16:32:33 MANAGED CARE DIRECTOR CPT-55066 Visit 16:32:21 MANAGED CARE DIRECTOR CPT-27294A Sono OB comp <14 weeks ([place] Only) 17:02:58 MANAGED CARE DIRECTOR CPT-63320 Spec Collection and Handling Fee 16:38:26 MANAGED CARE DIRECTOR CPT-39568 Visit 16:38:26 MANAGED CARE DIRECTOR
--- OUTSIDE RECORDS SUMMARY | 2018-12-09 18:33 | XMS REPORT | Clinical Summary ---
Author Author Admin, TEO Zelaya [facility] Address Unknown Phone Allergies, Adverse Reactions, [...] Date Value Standard Description Adacel immunization Adacel [EIN690] tetanus toxoid, reduced diphtheria toxoid, and acellular [...] Procedure Name Date Entry Date Standard Description CPT-17081 Visit 15:59:20 CDT CPT-07061 Visit 16:15:00 CDT CPT-57317 First Vx Component - Ix admin via ID IM or jet inj without physician counseling 15:57:47 CDT CPT-29341 Adacel 15:57:47 CDT CPT-33573 Visit 15:36:49 CDT CPT-73452 Visit 16:25:20 CDT CPT-03031 Sono OB comp > 14 weeks 17:12:58 LANDSCAPING SPECIALIST CPT-29912 Visit 17:03:47 LANDSCAPING SPECIALIST CPT-47997 Visit 16:32:33 LANDSCAPING SPECIALIST CPT-33430 Visit 16:32:21 LANDSCAPING SPECIALIST CPT-41429T Sono OB comp <14 weeks ([place] Only) 17:02:58 LANDSCAPING SPECIALIST CPT-74496 Spec Collection and Handling Fee 16:38:26 LANDSCAPING SPECIALIST CPT-45661 Visit 16:38:26 LANDSCAPING SPECIALIST
[2018-12-09 18:34] LABS: HEMATOCRIT 42 % (35-52); HEMOGLOBIN 14.1 G/DL (11.5-16.0); MEAN CORPUSCULAR HEMOGLOBIN 30 PG (25-34); MEAN CORPUSCULAR HGB CONC 34 G/DL (32-36); MEAN CORPUSCULAR VOLUME 89 FL (80-99); RED CELL DISTRIBUTION WIDTH 12.9 % (10.0-14.5); WHITE BLOOD COUNT 9.1 10^3/uL (4.3-11.0)
--- OUTSIDE RECORDS SUMMARY | 2018-12-09 18:34 | XMS REPORT | Clinical Summary ---
Author Author Admin, TEO Zelaya [facility] Address Unknown Phone Allergies, Adverse Reactions, [...] reduced Diphtheria, and acellular Pertussis Immunization) Adacel [FFL898] tetanus toxoid, reduced diphtheria toxoid, and acellular [...] Procedure Name Date Entry Date Standard Description CPT-28903 Visit 16:23:29 CDT CPT-79662 Visit 15:59:20 CDT CPT-04222 Visit 16:15:00 CDT CPT-40770 First Vx Component - Ix admin via ID IM or jet inj without physician counseling 15:57:47 CDT CPT-84112 Adacel 15:57:47 CDT CPT-20792 Visit 15:36:49 CDT CPT-03465 Visit 16:25:20 CDT CPT-81712 Sono OB comp > 14 weeks 17:12:58 PURIFICATION DIRECTOR CPT-97496 Visit 17:03:47 PURIFICATION DIRECTOR CPT-07861 Visit 16:32:33 PURIFICATION DIRECTOR CPT-51145 Visit 16:32:21 PURIFICATION DIRECTOR CPT-97599S Sono OB comp <14 weeks ([place] Only) 17:02:58 PURIFICATION DIRECTOR CPT-75907 Spec Collection and Handling Fee 16:38:26 PURIFICATION DIRECTOR CPT-47183 Visit 16:38:26 PURIFICATION DIRECTOR
--- OUTSIDE RECORDS SUMMARY | 2018-12-09 18:34 | XMS REPORT | Clinical Summary ---
Author Author Admin, TEO Zelaya [facility] Address Unknown Phone Unavailable Allergies, [...] mouth every 4 hours as needed IBUPROFEN 62233256525 Active Jillina Frazell STOCK WETTER Active PERCOCET 5-325 MG TABS 1 tablet by mouth every 4 hours as needed OXYCODONE-ACETAMINOPHEN 90911258396 Active Jillina Frazell STOCK WETTER Active Advance Directives Directive Description Start Date PERMISSION TO SHARE Immunizations Vaccine Administration Date Value Standard Description Adacel (Tetanus, reduced Diphtheria, and acellular Pertussis Immunization) Adacel [DXR820] tetanus toxoid, reduced diphtheria toxoid, and acellular [...] 16:10:33 CDT CPT-OV Office Visit 16:10:33 CDT CPT-90262I Sono biophysical pro wo stress test-[place] Only 10:41:52 CDT CPT-81031 Visit 16:43:13 CDT CPT-27656 Visit 08:49:27 CDT CPT-38367 Visit 09:08:50 CDT CPT-72554 Visit 12:21:22 CDT CPT-76032 Visit 11:22:56 CDT CPT-54375 Visit 16:23:29 CDT CPT-26913 Visit 15:59:20 CDT CPT-99107 Visit 16:15:00 CDT CPT-91042 First Vx Component - Ix admin via ID IM or jet inj without physician counseling 15:57:47 CDT CPT-05970 Adacel 15:57:47 CDT CPT-80851 Visit 15:36:49 CDT CPT-01247 Visit 16:25:20 CDT CPT-96260 Sono OB comp > 14 weeks 17:12:58 MAINTENANCE ENGINEER CPT-24231 Visit 17:03:47 MAINTENANCE ENGINEER CPT-70547 Visit 16:32:33 MAINTENANCE ENGINEER CPT-80079 Visit 16:32:21 MAINTENANCE ENGINEER CPT-55867S Sono OB comp <14 weeks ([place] Only) 17:02:58 MAINTENANCE ENGINEER CPT-03447 Spec Collection and Handling Fee 16:38:26 MAINTENANCE ENGINEER CPT-60502 Visit 16:38:26 MAINTENANCE ENGINEER
--- OUTSIDE RECORDS SUMMARY | 2018-12-09 18:34 | XMS REPORT | Clinical Summary ---
Author Author Admin, TEO Zelaya [facility] Address Unknown Phone Allergies, Adverse Reactions, Alerts [...] Date Value Standard Description Adacel immunization Adacel [WAA630] tetanus toxoid, reduced diphtheria toxoid, and acellular [...] Procedure Name Date Entry Date Standard Description CPT-82635 Visit 15:59:20 CDT CPT-50436 Visit 16:15:00 CDT CPT-24197 First Vx Component - Ix admin via ID IM or jet inj without physician counseling 15:57:47 CDT CPT-80452 Adacel 15:57:47 CDT CPT-32205 Visit 15:36:49 CDT CPT-76807 Visit 16:25:20 CDT CPT-91022 Sono OB comp > 14 weeks 17:12:58 BANK REPRESENTATIVE CPT-63931 Visit 17:03:47 BANK REPRESENTATIVE CPT-05932 Visit 16:32:33 BANK REPRESENTATIVE CPT-98958 Visit 16:32:21 BANK REPRESENTATIVE CPT-04037T Sono OB comp <14 weeks ([place] Only) 17:02:58 BANK REPRESENTATIVE CPT-44852 Spec Collection and Handling Fee 16:38:26 BANK REPRESENTATIVE CPT-14922 Visit 16:38:26 BANK REPRESENTATIVE
[2018-12-09 18:35] LABS: BASOPHILS % (AUTO) 0 % (0-10); EOSINOPHILS # (AUTO) 0.1 10^3/uL (0.0-0.3); EOSINOPHILS % (AUTO) 1 % (0-10); LYMPHOCYTES % (AUTO) 21 % (12-44); MEAN PLATELET VOLUME 9.9 FL (7.4-10.4); MONOCYTES # (AUTO) 0.6 X 10^3 (0.0-1.0); MONOCYTES % (AUTO) 7 % (0-12); NEUTROPHILS # (AUTO) 6.5 X 10^3 (1.8-7.8); NEUTROPHILS % (AUTO) 71 % (42-75); PLATELET COUNT 268 10^3/uL (130-400)
--- NOTE | 2018-12-09 18:35 | ED Chest Pain ---
General Chief Complaint: Chest Pain Stated Complaint: CHEST PAIN Source: patient Exam Limitations: no limitations History of Present Illness Date Seen by Provider: Dec 09, 2018 Time Seen by Provider: 18:20 Initial Comments The patient is a very pleasant 33-year-old female who presents for evaluation of left sided chest discomfort which started yesterday. She states the pain radiates to the left side of her neck and her left arm. She states that her father had 2 heart attacks the first being in his 60s. She says she has been to this emergency department a few times over the past few months for shortness of breath which has been unexplained. She says the pain is slightly better when she is laying down and slightly worse when she is standing up. She says it feels different than heartburn. She cannot think of any reason she would've strained her chest wall or arm. She is alert and oriented 4, calm, and appears to be in no distress. She denies fevers or chills, diaphoresis, dizziness, syncope, abdominal pain, back or flank pain, or shortness of breath. She has had some nausea but no vomiting. She states that the pain radiating to her arm is what brought her in this evening. She does mention upon arrival and it feels like the pain is now getting better. Timing/Duration: 24 hours Severity/Quality: mild Location: other (left chest/left arm/left neck) Radiation: arms (left), neck (left) Prior CP/Workup: no prior chest pain ASA po DEVULCANIZER HEAD: No NTG SL DEVULCANIZER HEAD: No Associated Symptoms: nausea/vomiting Allergies and Home Medications Patient Home Medication List Home Medication List Reviewed: Yes Review of Systems Review of Systems Constitutional: no symptoms reported EENTM: No Symptoms Reported Respiratory: No Symptoms Reported Cardiovascular: Chest Pain Gastrointestinal: No Symptoms Reported Genitourinary: No Symptoms Reported Musculoskeletal: no symptoms reported Skin: no symptoms reported Psychiatric/Neurological: No Symptoms Reported Endocrine: No Symptoms Reported Hematologic/Lymphatic: No Symptoms Reported All Other Systems Reviewed Negative Unless Noted: Yes Past Mzovlvo-Rvcbnp-Skeyxu Hx Past Med/Social Hx: Reviewed Nursing Past Med/Soc Hx Physical Exam Vital Signs Vital Signs - First Documented 12/09/18 18:12 Temp 97.3 Pulse 81 Resp 18 B/P (MAP) 135/76 (95) Pulse Ox 100 O2 Delivery Room Air Capillary Refill : Height, Weight, BMI Height: '" Weight: lbs. oz. kg; BMI Method: General Appearance: No Apparent Distress, WD/WN HEENT: PERRL/EOMI, Pharynx Normal Neck: Full Range of Motion, Normal Inspection, Non Tender, Supple Respiratory: Chest Non Tender, Lungs Clear, Normal Breath Sounds, No Accessory Muscle Use Cardiovascular: Regular Rate, Rhythm, No Edema, No JVD, No Murmur, Normal Peripheral Pulses Gastrointestinal: Normal Bowel Sounds, No Pulsatile Mass, Non Tender, Soft Extremity: Normal Capillary Refill, Non Tender Neurologic/Psychiatric: Alert, Oriented x3, No Motor/Sensory Deficits, Normal Mood/Affect Skin: Normal Color, Warm/Dry Progress/Results/Core Measures Results/Orders Lab Results Laboratory Tests Test 12/09/18 18:19 12/09/18 18:27 12/09/18 18:45 Range/Units White Blood Count 9.1 4.3-11.0 10^3/uL Red Blood Count 4.72 4.35-5.85 10^6/uL Hemoglobin 14.1 11.5-16.0 G/DL Hematocrit 42 35-52 % Mean Corpuscular Volume 89 80-99 FL Mean Corpuscular Hemoglobin 30 25-34 PG Mean Corpuscular Hemoglobin Concent 34 32-36 G/DL Red Cell Distribution Width 12.9 10.0-14.5 % Platelet Count 268 130-400 10^3/uL Mean Platelet Volume 9.9 7.4-10.4 FL Neutrophils (%) (Auto) 71 42-75 % Lymphocytes (%) (Auto) 21 12-44 % Monocytes (%) (Auto) 7 0-12 % Eosinophils (%) (Auto) 1 0-10 % Basophils (%) (Auto) 0 0-10 % Neutrophils # (Auto) 6.5 1.8-7.8 X 10^3 Lymphocytes # (Auto) 2.0 1.0-4.0 X 10^3 Monocytes # (Auto) 0.6 0.0-1.0 X 10^3 Eosinophils # (Auto) 0.1 0.0-0.3 10^3/uL Basophils # (Auto) 0.0 0.0-0.1 10^3/uL Sodium Level 140 135-145 MMOL/L Potassium Level 3.7 3.6-5.0 MMOL/L Chloride Level 103 98-107 MMOL/L Carbon Dioxide Level 21 21-32 MMOL/L Anion Gap 16 H 5-14 MMOL/L Blood Urea Nitrogen 11 7-18 MG/DL Creatinine 0.72 0.60-1.30 MG/DL Estimat Glomerular Filtration Rate > 60 BUN/Creatinine Ratio 15 Glucose Level 152 H 70-105 MG/DL Calcium Level 9.0 8.5-10.1 MG/DL Corrected Calcium 8.5-10.1 MG/DL Total Bilirubin 0.9 0.1-1.0 MG/DL Aspartate Amino Transf (AST/SGOT) 14 5-34 U/L Alanine Aminotransferase (ALT/SGPT) 17 0-55 U/L Alkaline Phosphatase 93 40-136 U/L Troponin I < 0.30 <0.30 NG/ML Total Protein 7.3 6.4-8.2 GM/DL Albumin 4.6 H 3.2-4.5 GM/DL D-Dimer 0.17 0.00-0.49 UG/ML Urine Test NEGATIVE NEGATIVE My Orders Orders - NATALIE GALLOWAY DO Ekg Tracing (12/09/18 18:19) Cbc With Automated Diff (12/09/18 18:20) Chest 1 View Ap/Pa Only (12/09/18 18:20) Comprehensive Metabolic Panel (12/09/18 18:20) Monitor-Rhythm Ecg Trace Only (12/09/18 18:20) Ed Iv/Invasive Line Start (12/09/18 18:20) Troponin I (12/09/18 18:20) Fibrin Degradation Products (12/09/18 18:20) Hcg,Qualitative Urine (12/09/18 18:29) Vital Signs/I&O 12/09/18 18:12 Temp 97.3 Pulse 81 Resp 18 B/P (MAP) 135/76 (95) Pulse Ox 100 O2 Delivery Room Air Progress Progress Note : Progress Note @1932 - Patient updated on laboratory results which are acutely unremarkable. She states that she is feeling somewhat better and wants to go home. Advised patient to follow-up with her PCP in the next 2-3 days or return to the emergency department immediately for new or worsening symptoms. She will go home with a prescription for prednisone and tramadol. Comment @1813 - Normal sinus rhythm, rate of 89, normal axis, no acute ischemic findings noted, no STEMI, reviewed and interpreted by myself Diagnostic Imaging Comments [facility]. [place], [place] NAME: LORENA HARVEY [facility] REC#: [id number] PT STATUS: REG ER : 1985 PHYSICIAN: NATALIE GALLOWAY DO ADMIT DATE: 12/09/18/ER FS Draft Date of Exam:12/09/18 CHEST 1 VIEW AP/PA ONLY INDICATION: Intermittent chest pain for 2 days. FINDINGS: Frontal view of the chest demonstrates the lungs to be clear. The heart, mediastinum, pulmonary vascularity and visualized bony thorax are normal. IMPRESSION: Normal chest. Dictated on workstation # [id number] Dict: 12/09/181841 Trans: 12/09/181848 [facility] [id number] Interpreted by: JANETTE WHITFIELD MD Electronically signed by: Departure Impression Primary Impression: Chest wall pain Disposition: 01 HOME, SELF-CARE Condition: Stable Departure-Patient Inst. Referrals: NO,LOCAL PHYSICIAN (PCP/Family) Primary Care Physician Patient Instructions: Chest Pain That Is Not Caused by the Heart (DC), Costochondritis (DC), Pleuritic Chest Pain (DC) Add. Discharge Instructions: Prescribed medications as directed. Return to the emergency department for new or worsening symptoms. Follow-up with your doctor in the next 2-3 days. Scripts Tramadol HCl (Tramadol HCl) 50 Mg Tablet 50 MG PO Q6H PRN for PAIN for 3 Days, #10 TAB 0 Refills Prov: NATALIE GALLOWAY DO 12/09/18 Prednisone (Prednisone) 20 Mg Tab 40 MG PO DAILY for 3 Days, #6 TAB 0 Refills Prov: NATALIE GALLOWAY DO 12/09/18 NATALIE GALLOWAY DO Dec 09, 2018 18:35
--- OUTSIDE RECORDS SUMMARY | 2018-12-09 18:35 | XMS REPORT | Continuity of Care Document ---
Demographics x Preferred Language Unknown Marital Status Unknown Samaritan Affiliation Unknown Race Unknown Ethnic Group Unknown Author Organization Unknown Address Unknown Allergies Active Description Code Type Severity Reaction Onset Reported/Identified Relationship to Patient Clinical Status Yes No Known Drug Allergies [id number] ND N/A N/A Confirmed or Verified Medications There is no data. Problems There is no data. Procedures There is no data. Results Test Result Range RHOGAM COMPONENT - 09/12/13 00:00 RHOGAM GIVEN CBC WITH DIFF - 12/05/13 00:00 BASO% 0.1 % 0-2 EOS% 0.2 % 0-7.0 HCT 32.7 % 36.9-47.0 HGB 10.1 G/DL 12.0-16.0 LYMPH% 13.9 % 20-40 MCH 26.0 PG 27-31 MCHC 30.9 G/DL 33-37 MCV 84.3 FL 81-99 MONO% 6.9 % 0-10.0 MPV 10.8 FL 7.3-10.4 NEUTRO% 78.9 % 40-70 PLT 249 10^3u 130-400 RBC 3.9 10^6u 4.2-5.4 RDW 15.2 % 11.5-15.5 WBC 9.9 10^3u 4.8-10.8 NEUTRO# 7.8 10^3u 1.5-7.5 LYMPH# 1.4 10^3u 0.9-4.0 MONO# 0.7 10^3u 0-0.8 EOS# 0.0 10^3u 0-0.6 BASO# 0.0 10^3u 0-0.1 TYPE AND SCREEN - 12/05/13 00:00 ABO AB ABSCRN N Negative RH N UA - 12/05/13 00:00 PH 6.0 4.5-8.0 SG 1.025 1.003-1.035 UABILI N UABLD N UACOLOR YEL UAGLU N UAKET N UALEUK 2+ UANIT N UAURO 0.2 0-0.2 CLARITY SLTCLDY PROTEIN N UA WBC R2030 UA RBC R05 SQUAMOUS EPITHELIAL CELLS 3+ BACTERIA 3+ MUCOUS 2+ CBC WITH DIFF - 12/07/13 00:00 BANDS 12.0 % 0-5 HCT 27.6 % 36.9-47.0 HGB 8.4 G/DL 12.0-16.0 LYMPH 1.0 % 20-40 MCH 25.7 PG 27-31 MCHC 30.4 G/DL 33-37 MCV 84.4 FL 81-99 MONO 2.0 % 0-10 MPV 10.2 FL 7.3-10.4 PLT 210 10^3u 130-400 RBC 3.3 10^6u 4.2-5.4 RDW 15.7 % 11.5-15.5 WBC 22.9 10^3u 4.8-10.8 SEGS 85.0 % 40-70 RHOGAM TESTING POST - 12/07/13 00:00 ABO AB RH N RHOGAM GIVEN SCREEN POS/ABN KLEIHAUER BETKE - 12/07/13 00:00 KLEIH SEE Encounters ACCT No. Visit Date/Time Discharge Status Pt. Type Provider Facility Loc./Unit Complaint [id number] 12/06/2013 16:24:00 12/09/2013 12:05:00 DIS Inpatient [facility] OB [id number] 09/12/2013 11:59:00 09/12/2013 11:59:00 [id number] 04/30/2013 00:00:00 Document Registration [id number] 04/30/2013 00:00:00 Document Registration [id number] 11/04/2018 13:20:00 11/04/2018 23:59:59 CLS [facility] [id number] 07/05/2017 10:10:03 ACT Unknown
--- OUTSIDE RECORDS SUMMARY | 2018-12-09 18:35 | XMS REPORT | Clinical Summary ---
Author Author Admin, TEO Zelaya [facility] Address Unknown Phone Allergies, [...] Date Value Standard Description Adacel immunization Adacel [[id number]] tetanus toxoid, reduced diphtheria toxoid, and acellular [...] Procedure Name Date Entry Date Standard Description CPT-19013 Visit 16:15:00 CDT CPT-57899 First Vx Component - Ix admin via ID IM or jet inj without physician counseling 15:57:47 CDT CPT-26350 Adacel 15:57:47 CDT CPT-96176 Visit 15:36:49 CDT CPT-28678 Visit 16:25:20 CDT CPT-83763 Sono OB comp > 14 weeks 17:12:58 DENTAL EQUIPMENT TECHNICIAN CPT-18381 Visit 17:03:47 DENTAL EQUIPMENT TECHNICIAN CPT-58439 Visit 16:32:33 DENTAL EQUIPMENT TECHNICIAN CPT-43805 Visit 16:32:21 DENTAL EQUIPMENT TECHNICIAN CPT-31606I Sono OB comp <14 weeks ([place] Only) 17:02:58 DENTAL EQUIPMENT TECHNICIAN CPT-57907 Spec Collection and Handling Fee 16:38:26 DENTAL EQUIPMENT TECHNICIAN CPT-53045 Visit 16:38:26 DENTAL EQUIPMENT TECHNICIAN
--- OUTSIDE RECORDS SUMMARY | 2018-12-09 18:35 | XMS REPORT | Clinical Summary ---
Author Author Admin, TEO Zelaya [facility] Address Unknown Phone Allergies, Adverse Reactions, [...] reduced Diphtheria, and acellular Pertussis Immunization) Adacel [[id number]] tetanus toxoid, reduced diphtheria toxoid, and acellular [...] Procedure Name Date Entry Date Standard Description CPT-69613 Visit 16:23:29 CDT CPT-19056 Visit 15:59:20 CDT CPT-19812 Visit 16:15:00 CDT CPT-76782 First Vx Component - Ix admin via ID IM or jet inj without physician counseling 15:57:47 CDT CPT-06429 Adacel 15:57:47 CDT CPT-29496 Visit 15:36:49 CDT CPT-11110 Visit 16:25:20 CDT CPT-32421 Sono OB comp > 14 weeks 17:12:58 NARCOTICS AND VICE DETECTIVE CPT-01315 Visit 17:03:47 NARCOTICS AND VICE DETECTIVE CPT-33717 Visit 16:32:33 NARCOTICS AND VICE DETECTIVE CPT-38039 Visit 16:32:21 NARCOTICS AND VICE DETECTIVE CPT-74016T Sono OB comp <14 weeks ([place] Only) 17:02:58 NARCOTICS AND VICE DETECTIVE CPT-55980 Spec Collection and Handling Fee 16:38:26 NARCOTICS AND VICE DETECTIVE CPT-81627 Visit 16:38:26 NARCOTICS AND VICE DETECTIVE
--- OUTSIDE RECORDS SUMMARY | 2018-12-09 18:35 | XMS REPORT | Clinical Summary ---
[...] Date Value Standard Description Adacel immunization Adacel [XTB044] tetanus toxoid, reduced diphtheria toxoid, and acellular [...] Procedure Name Date Entry Date Standard Description CPT-07493 Visit 15:59:20 CDT CPT-46398 Visit 16:15:00 CDT CPT-26946 First Vx Component - Ix admin via ID IM or jet inj without physician counseling 15:57:47 CDT CPT-70191 Adacel 15:57:47 CDT CPT-02134 Visit 15:36:49 CDT CPT-61074 Visit 16:25:20 CDT CPT-01700 Sono OB comp > 14 weeks 17:12:58 BANKRUPTCY LEGAL ASSISTANT CPT-23703 Visit 17:03:47 BANKRUPTCY LEGAL ASSISTANT CPT-79074 Visit 16:32:33 BANKRUPTCY LEGAL ASSISTANT CPT-62716 Visit 16:32:21 BANKRUPTCY LEGAL ASSISTANT CPT-53724N Sono OB comp <14 weeks ([place] Only) 17:02:58 BANKRUPTCY LEGAL ASSISTANT CPT-47623 Spec Collection and Handling Fee 16:38:26 BANKRUPTCY LEGAL ASSISTANT CPT-66594 Visit 16:38:26 BANKRUPTCY LEGAL ASSISTANT
--- NOTE | 2018-12-09 18:50 | Diagnostic Imaging Report ---
INDICATION: Intermittent chest pain for 2 days. FINDINGS: Frontal view of the chest demonstrates the lungs to be clear. The heart, mediastinum, pulmonary vascularity and visualized bony thorax are normal. IMPRESSION: Normal chest. Dictated by: Dictated on workstation # [id number]
[2018-12-09 18:52] LABS: ALANINE AMINOTRANSFERASE 17 U/L (0-55); ALBUMIN 4.6 GM/DL (3.2-4.5); ALKALINE PHOSPHATASE 93 U/L (40-136); BILIRUBIN,TOTAL 0.9 MG/DL (0.1-1.0); BUN/CREATININE RATIO 15; CARBON DIOXIDE 21 MMOL/L (21-32); CHLORIDE 103 MMOL/L (98-107); CREATININE SERUM 0.72 MG/DL (0.60-1.30); GFR ESTIMATED > 60; GLUCOSE 152 MG/DL (70-105); POTASSIUM 3.7 MMOL/L (3.6-5.0); SODIUM 140 MMOL/L (135-145); TOTAL PROTEIN 7.3 GM/DL (6.4-8.2)
[2018-12-09] MEDS ORDERED: TRAM50TA2 PO (19:31)
[2018-12-09] MEDS ORDERED: PRD20T PO (19:31)
[2018-12-09 19:44] VITALS: BP 126/61
== END 2018-12-09 19:45 | disposition home or self-care (01) ==
LOC: EDUNIT# 18:10 → ER FS 18:13
DX: R07.89 Other chest pain (principal)
CPT/HCPCS: 36415; 71045; 80053; 84484; 84703; 85025; 85379; 93005; 93041

== ENCOUNTER 2019-05-10 20:23 | Emergency (ER) | payer MEDICAID ==
[~2019-05-10] VITALS: Ht 167 cm; Wt 51.7 kg
[~2019-05-10 20:23] MED LIST: PRD20T PO; TRAM50TA2 PO
[2019-05-10 21:13] LABS: CLARITY,URINE CLEAR; COLOR,URINE YELLOW
[2019-05-10 21:14] LABS: BILIRUBIN,URINE NEGATIVE (NEGATIVE); GLUCOSE, URINE (UA) NEGATIVE (NEGATIVE); HCG,QUALITATIVE URINE POSITIVE (NEGATIVE); KETONES,URINE NEGATIVE (NEGATIVE); LEUKOCYTE ESTERASE ,URINE NEGATIVE (NEGATIVE); NITRITE,URINE NEGATIVE (NEGATIVE); PROTEIN,URINE NEGATIVE (NEGATIVE)
[2019-05-10 21:16] LABS: BACTERIA,URINE NEGATIVE /HPF; SQUAMOUS EPITHELIAL CELL,UR 25-50 /HPF
[2019-05-10] MEDS ORDERED: NS IV 1000 ML 1,000 ML IV STA (21:51)
[2019-05-10 21:59] LABS: BASOPHILS % (AUTO) 0 % (0-10); EOSINOPHILS % (AUTO) 0 % (0-10); HEMATOCRIT 38 % (35-52); HEMOGLOBIN 12.7 G/DL (11.5-16.0); LYMPHOCYTES # (AUTO) 1.2 X 10^3 (1.0-4.0); LYMPHOCYTES % (AUTO) 10 % (12-44); MEAN CORPUSCULAR HEMOGLOBIN 30 PG (25-34); MEAN CORPUSCULAR HGB CONC 34 G/DL (32-36); MEAN CORPUSCULAR VOLUME 91 FL (80-99); MEAN PLATELET VOLUME 9.7 FL (7.4-10.4); MONOCYTES # (AUTO) 0.6 X 10^3 (0.0-1.0); MONOCYTES % (AUTO) 5 % (0-12); NEUTROPHILS # (AUTO) 10.3 X 10^3 (1.8-7.8); NEUTROPHILS % (AUTO) 84 % (42-75); PLATELET COUNT 236 10^3/uL (130-400); WHITE BLOOD COUNT 12.3 10^3/uL (4.3-11.0)
[2019-05-10 22:08] LABS: ALANINE AMINOTRANSFERASE 10 U/L (0-55); ALBUMIN 3.7 GM/DL (3.2-4.5); ALKALINE PHOSPHATASE 81 U/L (40-136); BILIRUBIN,TOTAL 0.5 MG/DL (0.1-1.0); BUN/CREATININE RATIO 18; CALCIUM 8.8 MG/DL (8.5-10.1); CARBON DIOXIDE 22 MMOL/L (21-32); CHLORIDE 103 MMOL/L (98-107); CREATININE SERUM 0.56 MG/DL (0.60-1.30); GFR ESTIMATED > 60; GLUCOSE 194 MG/DL (70-105); LIPASE 89 U/L (8-78); POTASSIUM 3.7 MMOL/L (3.6-5.0); SODIUM 138 MMOL/L (135-145); TOTAL PROTEIN 6.6 GM/DL (6.4-8.2)
--- NOTE | 2019-05-10 22:19 | ED General ---
General Chief Complaint: Back Problems Stated Complaint: BACK PAIN Nursing Triage Note: PT COMPLAINING OF PAIN BETWEEN HER SHOULDER BLADES. PT HAD ULTRASOUND DONE THIS MORNING AND IS 21 WEEKS . GALLSTONES WERE ALSO SEEN ON THE ULTRASOUND Nursing Sepsis Screen: No Definite Risk Source of Information: Patient History of Present Illness Date Seen by Provider: May 10, 2019 Time Seen by Provider: 22:19 Initial Comments 33-year-old female that is SAB1 that is EGA 21 weeks presenting with pain that radiates to her right shoulder blade and between her shoulder blades in her back. This came on around 8 PM tonight after she had a supper. She had waffles with butter and syrup. She has had these before without any problems. She denies having any vaginal discharge or bleeding. She has no change in her bowel movements. She has been having some Guillermo Sosa type contractions over the last few weeks. She did have an ultrasound that was normal and scheduled for estimating size of the baby and due date. When they were performing this ultrasound they happened to notice that she had multiple gallstones present in her gallbladder. She was unaware of these being present until being told about them today. She denies having any episodes of pain like this before. She denies any pain with urination. Her urine has been more dark recently. She thought that it was just some really bad heartburn and indigestion because she has been having a lot of with this . She did try taking some Tums at home which did not help Allergies and Home Medications Allergies Coded Allergies: No Known Drug Allergies (Unverified , 05/10/19) Home Medications Prednisone 20 Mg Tab, 40 MG PO DAILY Prescribed by: NATALIE GALLOWAY on 12/09/181930 Tramadol HCl 50 Mg Tablet, 50 MG PO Q6H PRN for PAIN Prescribed by: NATALIE GALLOWAY on 12/09/181930 Patient Home Medication List Home Medication List Reviewed: Yes Review of Systems Review of Systems Constitutional: No chills, No dizziness, No fever EENTM: no symptoms reported Respiratory: no symptoms reported Cardiovascular: no symptoms reported Gastrointestinal: abdominal pain (RUQ), heartburn; No jaundice; nausea; No vomiting Genitourinary: decreased output (darker colored urine) : Yes (approximately 21 weeks ) Musculoskeletal: no symptoms reported Skin: no symptoms reported Psychiatric/Neurological: No Symptoms Reported Past Jdqirhx-Hbpjqg-Ihrdux Hx Past Med/Social Hx: Reviewed Nursing Past Med/Soc Hx Patient Social History 2nd Hand Smoke Exposure: No Recent Foreign Travel: No Contact w/Someone Who Travel: No Recent Infectious Disease Expo: No Recent Hopitalizations: No Physical Abuse: No Sexual Abuse: No Mistreated: No Immunizations Up To Date Tetanus Booster (TDap): Less than 5yrs Seasonal Allergies Seasonal Allergies: No Past Medical History Surgeries: No Respiratory: No Cardiac: No Neurological: No Genitourinary: No Gastrointestinal: No Musculoskeletal: No Endocrine: No HEENT: No Cancer: No Psychosocial: No Integumentary: No Blood Disorders: No Physical Exam Vital Signs Vital Signs - First Documented 05/10/19 21:00 Temp 36.2 Pulse 92 Resp 20 B/P (MAP) 111/61 (78) Pulse Ox 100 O2 Delivery Room Air Capillary Refill : Less Than 3 Seconds Height, Weight, BMI Height: 5'6.00" Weight: 150lbs. oz. 68.322932dt; 18.00 BMI Method:Stated General Appearance: No Apparent Distress, WD/WN HEENT: Pharynx Normal Neck: Normal Inspection, Supple Respiratory: Chest Non Tender, Lungs Clear, Normal Breath Sounds, No Accessory Muscle Use, No Respiratory Distress Cardiovascular: Regular Rate, Rhythm, Normal Peripheral Pulses Gastrointestinal: Normal Bowel Sounds; No No Pulsatile Mass; Non Tender, Soft; No Distended, No Guarding, No Hepatomegaly, No Rebound; Other (gravid uterus, negative Linares's sign, Negative McBurney's point pain) Back: No CVA Tenderness, No Vertebral Tenderness, Other (mild tenderness just medial to the right scapula with palpation) Extremity: Normal Capillary Refill, No Calf Tenderness, No Pedal Edema Neurologic/Psychiatric: Alert, Oriented x3, dry cell battery assembler II-XII Norm as Tested Skin: Normal Color, Warm/Dry Progress/Results/Core Measures Suspected Sepsis Recent Fever Within 48 Hours: No Infection Criteria Present: None New/Unexplained Altered Menta: No Sepsis Screen: No Definite Risk SIRS Temperature: Pulse: 92 Respiratory Rate: 20 Laboratory Tests 05/10/19 21:36: White Blood Count 12.3H Blood Pressure 111 /61 Mean: 78 Laboratory Tests 05/10/19 21:36: Creatinine 0.56L, Platelet Count 236, Total Bilirubin 0.5 Results/Orders Lab Results Laboratory Tests Test 05/10/19 21:07 05/10/19 21:36 Range/Units Urine Color YELLOW Urine Clarity CLEAR Urine pH 6.0 5-9 Urine Specific Ramona >=1.030 1.016-1.022 Urine Protein NEGATIVE NEGATIVE Urine Glucose (UA) NEGATIVE NEGATIVE Urine Ketones NEGATIVE NEGATIVE Urine Nitrite NEGATIVE NEGATIVE Urine Bilirubin NEGATIVE NEGATIVE Urine Urobilinogen 0.2 < = 1.0 MG/DL Urine Leukocyte Esterase NEGATIVE NEGATIVE Urine RBC (Auto) NEGATIVE NEGATIVE Urine RBC NONE /HPF Urine WBC NONE /HPF Urine Squamous Epithelial Cells 25-50 H /HPF Urine Crystals NONE /LPF Urine Calcium Oxalate Crystals /LPF Urine Bacteria NEGATIVE /HPF Urine Casts NONE /LPF Urine Mucus LARGE H /LPF Urine Culture Indicated NO Urine Test POSITIVE NEGATIVE White Blood Count 12.3 H 4.3-11.0 10^3/uL Red Blood Count 4.19 L 4.35-5.85 10^6/uL Hemoglobin 12.7 11.5-16.0 G/DL Hematocrit 38 35-52 % Mean Corpuscular Volume 91 80-99 FL Mean Corpuscular Hemoglobin 30 25-34 PG Mean Corpuscular Hemoglobin Concent 34 32-36 G/DL Red Cell Distribution Width 14.0 10.0-14.5 % Platelet Count 236 130-400 10^3/uL Mean Platelet Volume 9.7 7.4-10.4 FL Neutrophils (%) (Auto) 84 H 42-75 % Lymphocytes (%) (Auto) 10 L 12-44 % Monocytes (%) (Auto) 5 0-12 % Eosinophils (%) (Auto) 0 0-10 % Basophils (%) (Auto) 0 0-10 % Neutrophils # (Auto) 10.3 H 1.8-7.8 X 10^3 Lymphocytes # (Auto) 1.2 1.0-4.0 X 10^3 Monocytes # (Auto) 0.6 0.0-1.0 X 10^3 Eosinophils # (Auto) 0.0 0.0-0.3 10^3/uL Basophils # (Auto) 0.0 0.0-0.1 10^3/uL Sodium Level 138 135-145 MMOL/L Potassium Level 3.7 3.6-5.0 MMOL/L Chloride Level 103 98-107 MMOL/L Carbon Dioxide Level 22 21-32 MMOL/L Anion Gap 13 5-14 MMOL/L Blood Urea Nitrogen 10 7-18 MG/DL Creatinine 0.56 L 0.60-1.30 MG/DL Estimat Glomerular Filtration Rate > 60 BUN/Creatinine Ratio 18 Glucose Level 194 H 70-105 MG/DL Calcium Level 8.8 8.5-10.1 MG/DL Corrected Calcium 9.0 8.5-10.1 MG/DL Total Bilirubin 0.5 0.1-1.0 MG/DL Aspartate Amino Transf (AST/SGOT) 19 5-34 U/L Alanine Aminotransferase (ALT/SGPT) 10 0-55 U/L Alkaline Phosphatase 81 40-136 U/L Total Protein 6.6 6.4-8.2 GM/DL Albumin 3.7 3.2-4.5 GM/DL Lipase 89 H 8-78 U/L My Orders Orders - DAQUAN BLOCK MD Ua Culture If Indicated (05/10/19 20:53) Hcg,Qualitative Urine (05/10/19 20:53) Comprehensive Metabolic Panel (05/10/19 21:51) Lipase (05/10/19 21:51) Ed Iv/Invasive Line Start (05/10/19 21:51) Cbc With Automated Diff (05/10/19 21:51) Ns Iv 1000 Ml (Sodium Chloride 0.9%) (05/10/19 21:51) Vital Signs/I&O 05/10/19 21:00 Temp 36.2 Pulse 92 Resp 20 B/P (MAP) 111/61 (78) Pulse Ox 100 O2 Delivery Room Air Capillary Refill : Less Than 3 Seconds Blood Pressure Mean: 78 POS Progress Note #1: Progress Note Urinalysis and labs were obtained. The UA showed elevated specific gravity to go along with dehydration. There is no sign of infection or bleeding. Ordered labs and 1 L of normal saline IV fluid hydration bolus Progress Note #2: Progress Note Reviewed normal labs with the patient and family. The white blood cell count was slightly elevated which could go along with her combination of her as well as mild dehydration. No elevation of her liver enzymes to indicate a obstruction or blockage. And no signs of acute cholecystitis. Patient was feeling a little bit better with the fluids. She declined any acetaminophen or pain medicine here. She stated that she would take acetaminophen when she gets home. Counseled on low-fat diet and pushing fluids. Also advised to check back with Dr. Duarte who she follows with for her . Departure Impression Primary Impression: Gallbladder attack Additional Impressions: Gallstones without obstruction of gallbladder Qualified Codes: K80.20 - Calculus of gallbladder without cholecystitis without obstruction Incidental intrauterine Dehydration Disposition: 01 HOME, SELF-CARE Condition: Stable Departure-Patient Inst. Decision time for Depature: 22:41 Referrals: JERMAINE DUARTE MD NO,LOCAL PHYSICIAN (PCP) Primary Care Physician Patient Instructions: Acid Reflux (Gastroesophageal Reflux Disease) During , Cholestasis of (DC), Dehydration, Adult (DC), Gallstones (DC), Low Cholesterol, Saturated Fat, and Trans Fat Diet Add. Discharge Instructions: Follow a strict low fat diet to avoid having further flares of pain from your gallbladder and the gallstones Stay well hydrated and drink more water and fluids to help keep your urine as light colored and clear as possible. Check back with Dr. Duarte in clinic about your gallstones and the You may take Acetaminophen for pain All discharge instructions reviewed with patient and/or family. Voiced understanding. DAQUAN BLOCK MD May 10, 2019 22:19 POS
[2019-05-10 22:49] VITALS: BP 128/68
== END 2019-05-10 22:49 | disposition home or self-care (01) ==
LOC: EDUNIT# 20:23 → ER FS 20:26
DX: K80.20 Calculus of gallbladder without cholecystitis without obstruction (principal); E86.0 Dehydration; Z33.1 Pregnant state, incidental; Z79.52 Long term (current) use of systemic steroids
CPT/HCPCS: 36415; 80053; 81000; 83690; 84703; 85025; 96360

== ENCOUNTER → 2019-06-21 | Outpatient (CLI) | payer MEDICAID ==
[~2019-06-21] MED LIST changes: -TRAM50TA2 PO; +TRM50T PO
[2019-06-21 09:48] LABS: HEMATOCRIT 37 % (35-52); HEMOGLOBIN 12.6 G/DL (11.5-16.0); MEAN CORPUSCULAR HEMOGLOBIN 31 PG (25-34); MEAN CORPUSCULAR VOLUME 91 FL (80-99); WHITE BLOOD COUNT 9.7 10^3/uL (4.3-11.0)
[2019-06-21 09:49] LABS: EOSINOPHILS % (AUTO) 0 % (0-10); LYMPHOCYTES % (AUTO) 10 % (12-44); MEAN CORPUSCULAR HGB CONC 34 G/DL (32-36); MEAN PLATELET VOLUME 9.4 FL (7.4-10.4); MONOCYTES % (AUTO) 6 % (0-12); NEUTROPHILS % (AUTO) 84 % (42-75); PLATELET COUNT 230 10^3/uL (130-400); RED CELL DISTRIBUTION WIDTH 13.6 % (10.0-14.5)
[2019-06-21 09:50] LABS: BASOPHILS % (AUTO) 0 % (0-10); MONOCYTES # (AUTO) 0.5 X 10^3 (0.0-1.0); NEUTROPHILS # (AUTO) 8.1 X 10^3 (1.8-7.8)
== END ==
LOC: LAB FS 08:48
PROVIDERS: ATTEND Family Medicine
DX: O26.899 Other specified pregnancy related conditions, unspecified trimester (principal)
CPT/HCPCS: 36415; 82951; 82952; 85025; 86780; 86850

== ENCOUNTER → 2019-08-12 | Outpatient (CLI) | payer MEDICAID | LOC: LABNPT 14:40 | PROVIDERS: ATTEND Family Medicine | DX: Z34.90 Encounter for supervision of normal pregnancy, unspecified, unspecified trimester (principal); Z3A.00 Weeks of gestation of pregnancy not specified | CPT/HCPCS: 87081 ==

== ENCOUNTER 2019-08-30 09:47 | Inpatient (IN) | payer MEDICAID ==
[~2019-08-30] VITALS: Ht 167 cm; Wt 79.8 kg
[2019-08-30] VITALS (48 sets, daily range): BP systolic 99–160; BP diastolic 55–86
--- NOTE | 2019-08-30 09:47 | NUR ---
LORENA HARVEY presented to unit via from ED, accompanied by Leonardo, with c/o CORY WATER BROKE. LORENA HARVEY weighed, gowned, voided, and to bed. EFHM and TOCO applied, VS taken. LORENA HARVEY oriented to bed controls, call light, TV, heat, and A/C controls.
[2019-08-30 11:06] LABS: BILIRUBIN,URINE NEGATIVE (NEGATIVE); CLARITY,URINE CLEAR; COLOR,URINE YELLOW; GLUCOSE, URINE (UA) NEGATIVE (NEGATIVE); KETONES,URINE 2+ (NEGATIVE); LEUKOCYTE ESTERASE ,URINE 1+ (NEGATIVE); NITRITE,URINE NEGATIVE (NEGATIVE); PROTEIN,URINE 1+ (NEGATIVE)
[2019-08-30] MEDS ORDERED: D5 LR IV SOLUTION 1,000 ML IV ONE (11:23)
[2019-08-30] MEDS ORDERED: AMPICILLIN FOR IV USE 2,000 MG VIAL ONE (11:24)
[2019-08-30] MEDS ORDERED: WATER (STERILE) FOR INJECTION 20 ML ONE (11:25)
[2019-08-30 11:28] LABS: BACTERIA,URINE FEW /HPF; RBC,URINE RARE /HPF
--- NOTE | 2019-08-30 11:31 | History & Physical-OB ---
OB - Chief Complaint & HPI Date/Time Date of Admission: Date of Admission: Date seen by a Provider: Aug 30, 2019 Time Seen by a Provider: 11:29 Chief Complaint/History OB-Reason for Admission/Chief: Rupture of Membranes Hx : 5 Hx Para: 3 Expected Date of Delivery: Sep 13, 2019 Gestational Age in Weeks: 38 Gestational Age in Days: 0 Admission Nurse Assessment Rev: Yes Allergies and Home Medications Allergies Coded Allergies: No Known Drug Allergies (Unverified , 05/10/19) Home Medications Prednisone 20 Mg Tab, 40 MG PO DAILY Prescribed by: NATALIE GALLOWAY on 12/09/181930 Tramadol HCl 50 Mg Tablet, 50 MG PO Q6H PRN for PAIN Prescribed by: NATALIE GALLOWAY on 12/09/181930 Patient Home Medication List Home Medication List Reviewed: Yes OB - History Hx of Present Care: Yes Ultrasounds: Normal mid trimester US Obstetrical Complications: None Medical Complications: None Obstetrical History Hx : 5 Hx Para: 3 Hx Total # of Abortions (Spona: 1 Patient Past Medical History previously healthy Social History/Family History Alcohol Use: Denies Use Recreational Drug Use: No 2nd Hand Smoke Exposure: No Immunizations Tetanus Booster (TDap): Less than 5yrs OB - Admission Exam Physical Exam Vitals: Vital Signs 08/30/19 10:19 Temp 36.9 Pulse 75 Resp 16 Pulse Ox 99 O2 Delivery Room Air HEENT: NCAT Heart: Rhythm Normal Lungs: Clear Abdomen: Gravid Extremities: Normal Reflexes: Normal Cervical Dilatation: 1cm Effacement: 75% Station: -3 Membranes: Ruptured Amniotic Fluid: Clear Heart Rate: 130's Accelerations: Accelerations Present Decelerations: No Decelerations Short Term Variability: Present Snf Variability: Average (6-25) Contractions on Admission: >10 Minutes Apart Labs Laboratory Tests Test 08/30/19 10:00 Range/Units Urine Color YELLOW Urine Clarity CLEAR Urine pH 6.0 5-9 Urine Specific [place] 1.025 H 1.016-1.022 Urine Protein 1+ H NEGATIVE Urine Glucose (UA) NEGATIVE NEGATIVE Urine Ketones 2+ H NEGATIVE Urine Nitrite NEGATIVE NEGATIVE Urine Bilirubin NEGATIVE NEGATIVE Urine Urobilinogen 0.2 < = 1.0 MG/DL Urine Leukocyte Esterase 1+ H NEGATIVE Urine RBC (Auto) TRACE-I NEGATIVE Urine RBC RARE /HPF Urine WBC 10-25 H /HPF Urine Squamous Epithelial Cells 5-10 /HPF Urine Crystals NONE /LPF Urine Bacteria FEW H /HPF Urine Casts NONE /LPF Urine Mucus SMALL H /LPF Urine Culture Indicated YES OB - Assessment/Plan/Diagnosis Assessment Assessment: rupture of membranes Admission Dx PROM at 38 0/7 wga. Admission Status: Inpatient Order (span 2 midnights) Reason for Inpatient Admission: Induction of labor for PROM at 38 0/7 wga. Plan Plan: Induction Induction Method: per Pitocin Protocol Other Plan Epidural for pain. JERMAINE DUARTE MD Aug 30, 2019 11:31
[2019-08-30] MEDS ORDERED: AMPICILLIN FOR IV USE 2,000 MG in WATER (STERILE) FOR INJECTION 14.8 ML IV SCH (11:32)
[2019-08-30] MEDS ORDERED: D5 LR IV SOLUTION 1,000 ML IV SCH ×2 (11:32→14:00)
[2019-08-30] MEDS ORDERED: OXYTOCIN PRE-MIX DRIP 500 ML IV SCH (11:32)
[2019-08-30] MEDS ORDERED: MINERAL OIL CONCENTRATE 99.9% 15 ML UDC TOP PRN (11:45)
[2019-08-30 12:05] LABS: BASOPHILS % (AUTO) 0 % (0-10); EOSINOPHILS % (AUTO) 0 % (0-10); HEMATOCRIT 40 % (35-52); HEMOGLOBIN 13.8 G/DL (11.5-16.0); LYMPHOCYTES # (AUTO) 1.1 X 10^3 (1.0-4.0); LYMPHOCYTES % (AUTO) 14 % (12-44); MEAN CORPUSCULAR HEMOGLOBIN 31 PG (25-34); MEAN CORPUSCULAR HGB CONC 34 G/DL (32-36); MEAN CORPUSCULAR VOLUME 90 FL (80-99); MEAN PLATELET VOLUME 10.4 FL (7.4-10.4); MONOCYTES # (AUTO) 0.5 X 10^3 (0.0-1.0); MONOCYTES % (AUTO) 6 % (0-12); NEUTROPHILS # (AUTO) 6.8 X 10^3 (1.8-7.8); NEUTROPHILS % (AUTO) 80 % (42-75); PLATELET COUNT 222 10^3/uL (130-400); RED CELL DISTRIBUTION WIDTH 14.1 % (10.0-14.5); WHITE BLOOD COUNT 8.5 10^3/uL (4.3-11.0)
[2019-08-30] MEDS ORDERED: PREN1TAB19 PO (12:38)
[2019-08-30] MEDS ORDERED: fentaNYL 2 mcg/ml BUPIVA 0.125 100 ML ONE (13:18)
--- NOTE | 2019-08-30 13:30 | NUR ---
Report rec'd from Mich Vega RN
--- NOTE | 2019-08-30 13:31 | NUR ---
Mich Quintero CRNA called and notified of epidural request
--- NOTE | 2019-08-30 13:40 | NUR ---
Mich Quintero CRNA here for epidural placement. Procedure explained, consent reviewed and signed by anesthesia. Questions answered to patient's satisfaction. Time out taken to verify correct patient/procedure. Patient up to side of bed, assisted into sitting position. Betadine prep done x3 and sterile drape applied. Local done, see anesthesia record. Test dose given, see anesthesia record for drug and dosage. Epidural catheter secured in place. Epidural placement complete. Assisted back into bed, monitors adjusted. Epidural dosed, see anesthesia record. Epidural of Sufenta/Bupvicaine @12cc/hr stated per pump. Patient tolerated procedure well.
[2019-08-30] MEDS ORDERED: CATHETER FLUSH 10 ML SYR IV SCH ×2 (14:00→22:00)
[2019-08-30] MEDS ORDERED: fentaNYL INJECTION 100 MCG/2 ML AMP ONE (14:37)
[2019-08-30] MEDS ORDERED: LACTATED RINGERS 1,000 ML IV ONE (14:55)
[2019-08-30] MEDS ORDERED: METOCLOPRAMIDE INJ 10 MG/2 ML (REGLAN) IV PRN (15:00)
[2019-08-30] MEDS ORDERED: diphenhydrAMINE 50 MG/ML INJ (BENADRYL) IV PRN (15:00)
[2019-08-30] MEDS ORDERED: EPIDURAL (fentaNYL 2 MCG/ML BUPIVA 0.125%)100 ML BAG EPI PRN (15:00)
[2019-08-30] MEDS ORDERED: NALOXONE 0.4 MG/ML 1 ML (NARCAN) VIAL IV PRN ×2 (15:00)
[2019-08-30] MEDS ORDERED: ONDANSETRON 4 MG/2 ML (SDV) Z0FRAN IV PRN (15:00)
[2019-08-30] MEDS ORDERED: AMPICILLIN FOR IV USE 1,000 MG in WATER (STERILE) FOR INJECTION 7.4 ML IV SCH (15:45)
[2019-08-30] MEDS ORDERED: LIDOCAINE/EPI 2% 1:200,00 (XYLOCAINE) 10 ML VIAL ONE (17:38)
[2019-08-30] MEDS ORDERED: WITCH HAZEL(TUCKS) 40 EA JAR TOP PRN (17:45)
[2019-08-30] MEDS ORDERED: TETANUS,DIPTH,PERTUSS P/F (BOOSTRIX) 0.5 ML VIAL IM ONE (17:45)
[2019-08-30] MEDS ORDERED: BENZOCAINE/MENTHOL (DERMOPLAST) 60 ML CAN TP PRN (17:45)
[2019-08-30] MEDS ORDERED: MEASLES,MUMPS,RUBELLA 1 EA INJ SQ ONE (17:45)
--- OUTSIDE RECORDS SUMMARY | 2019-08-30 18:06 | XMS REPORT | Continuity of Care Document ---
Demographics x Preferred Language Unknown Marital Status Unknown Islam Affiliation Unknown Race Unknown Ethnic Group Unknown Author Organization Unknown Address Unknown Phone Unavailable Allergies Active Description Code Type Severity Reaction Onset Reported/Identified Relationship to Patient Clinical Status Yes No Known Drug Allergies [id number] ND N/A N/A Confirmed or Verified Yes No Known Drug Allergies [id number] Drug Allergy Unknown N/A 05/10/2019 Medications There is no data. Problems Date Dx Coded Attending Type Code Diagnosis Diagnosed By 12/09/2018 NILESH ESTRADA DO Ot R07. 89 OTHER CHEST PAIN 12/15/2018 NILESH ESTRADA DO Ot R07. 89 OTHER CHEST PAIN 06/22/2019 JERMAINE DUARTE MD Ot O26.899 OTH RELATED CONDITIONS, UNSPEC 08/19/2019 JERMAINE DUARTE MD Ot Z34.90 ENCNTR FOR SUPRVSN OF NORMAL , 08/19/2019 JERMAINE DUARTE MD Ot Z3A.00 WEEKS OF GESTATION OF NOT SPEC 08/21/2019 JERMAINE DUARTE MD Ot Z34.90 ENCNTR FOR SUPRVSN OF NORMAL , 08/21/2019 JERMAINE DUARTE MD Ot Z3A.00 WEEKS OF GESTATION OF NOT SPEC 08/26/2019 JERMAINE DUARTE MD Ot Z34.90 ENCNTR FOR SUPRVSN OF NORMAL , 08/26/2019 JERMAINE DUARTE MD Ot Z3A.00 WEEKS OF GESTATION OF NOT SPEC 08/26/2019 JERMAINE DUARTE MD Ot Z34.90 ENCNTR FOR SUPRVSN OF NORMAL , 08/26/2019 JERMAINE DUARTE MD Ot Z3A.00 WEEKS OF GESTATION OF NOT SPEC Procedures There is no data. Results Test [...] % 40-70 RHOGAM TESTING POST - 12/07/13 00 :00 ABO AB RH N RHOGAM GIVEN SCREEN POS/ABN KLEIHAUER BETKE - 12/07/13 00:00 KLEIH SEE Complete blood count (CBC) with automate d white blood cell (WBC) differential - 12/09/18 18:19 Blood leukocytes automated count (number/volume) 9.1 10*3/uL 4.3-11.0 Blood erythrocytes automated count (number/volume) 4.72 10*6/uL 4.35-5.85 Venous blood hemoglobin measurement (mass/volume) 14.1 g/dL 11.5-16.0 Blood hematocrit (volume fraction) 42 % 35-52 Automated erythrocyte mean corpuscular volume 89 [ foz_us] 80-99 Automated erythrocyte mean corpuscular h emoglobin (mass per erythrocyte) 30 pg 25-34 Automated erythrocyte mean corpuscular h emoglobin concentration measurement (mass/volume) 34 g/dL 32-36 Automated erythrocyte distribution width ratio 12. 9 % 10.0- 14.5 Automated blood platelet count (count/volume) 268 10*3/uL 130-400 Automated blood platelet mean volume measurement 9.9 [foz_us] 7.4-10.4 Automated blood neutrophils/100 leukocytes 71 % 42-75 Automated blood lymphocytes/100 leukocytes 21 % 12-44 Blood monocytes/100 leukocytes 7 % 0-12 Automated blood eosinophils/100 leukocytes 1 % 0-10 Automated blood basophils/100 leukocytes 0 % 0-10 Blood neutrophils automated count (number/volume) 6.5 10*3 1.8-7.8 Blood lymphocytes automated count (number/volume) 2.0 10*3 1.0-4.0 Blood monocytes automated count (number/volume) 0. 6 10*3 0.0-1.0 Automated eosinophil count 0.1 10*3/uL 0 .0-0.3 Automated blood basophil count (count/volume) 0.0 10*3/uL 0.0-0.1 Comprehensive metabolic panel - 12/09/18 18:19 Serum or plasma sodium measurement (moles/volume) 140 mmol/L 135-145 Serum or plasma potassium measurement (moles/volume) 3.7 mmol/L 3.6-5.0 Serum or plasma chloride measurement (moles/volume) 103 mmol/L 98-107 Carbon dioxide 21 mmol/L 21-32 Serum or plasma anion gap determination (moles/volume) 16 mmol/L 5-14 Serum or plasma urea nitrogen measurement (mass/volume ) 11 mg/dL 7-18 Serum or plasma creatinine measurement (mass/volume) 0.72 mg/dL 0.60-1.30 Serum or plasma urea nitrogen/creatinine mass ratio 15 NRG Serum or plasma creatinine measurement w ith calculation of estimated glomerular filtration rate > NRG Serum or plasma glucose measurement (mass/volume) 152 mg/dL 70-105 Serum or plasma calcium measurement (mass/volume) 9.0 mg/dL 8.5-10.1 Serum or plasma total bilirubin measurement (mass/volu me) 0.9 mg/dL 0.1-1.0 Serum or plasma alkaline phosphatase cass surement (enzymatic activity/volume) 93 U/L 40-136 Serum or plasma aspartate aminotransfera se measurement (enzymatic activity/volume) 14 U/L 5-34 Serum or plasma alanine aminotransferase measurement (enzymatic activity/volume) 17 U/L 0-55 Serum or plasma protein measurement (mass/volume) 7.3 g/dL 6.4-8.2 Serum or plasma albumin measurement (mass/volume) 4.6 g/dL 3.2-4.5 Serum or plasma troponin i.cardiac measu rement (mass/volume) - 12/09/18 18:19 Serum or plasma troponin i.cardiac measurement (mass/v olume) < ng/mL <0.30 Fibrin D-dimer FEU measurement in platel et poor plasma (mass/volume) - 12/09/18 18:27 Fibrin D-dimer FEU measurement in platelet poor plasma (mass/volume) 0.17 ug/mL 0.00-0.49 Urine beta human chorionic gonadotropin (hCG) measurement - 12/09/18 18:45 Urine beta human chorionic gonadotropin (hCG) measurem ent NEGATIVE NEGATIVE CULTURE, URINE - 02/02/19 13:10 CULTURE, URINE, ROUTINE SEE NOTE NRG A1C - 02/02/19 13:10 HEMOGLOBIN A1c 5.0 % of total Hgb <5.7 GC/CHLAMYDIA (SWAB OR URINE)-RAPID - 06/19 09:21 CHLAMYDIA TRACHOMATIS RNA, TMA NOT DETECTED NOT DETECTED NEISSERIA GONORRHOEAE RNA, TMA NOT DETECTED NOT DETECTED COMMENT NRG PENTA SCREEN - 03/29/19 10:28 Maternal Weight 158 lbs NRG Est'd Date of Delivery 09/18/2019 NRG [place] Determined by ULTRASOUND NRG Mother's Ethnic Origin NRG Number of Fetuses 1 NRG Insulin Depend Diabetic NO NRG Repeat Specimen NO NRG Hx Of Neural Tube Defects NO NRG Prev Down Synd NO NRG Donor Egg NO NRG Donor Age: Egg Retrieval NOT GIVEN NRG Cigarette smoker NOT GIVEN NRG INTERPRETATION: SEE NOTE NRG Risk for ONTD <1:5000 NRG Age Risk Down Syndrome 1:550 NRG JUAN MIGUEL Down Syndrome Risk <1:5000 <1:270 JUAN MIGUEL Trisomy 18 Risk <1:5000 <1:100 Calc'd Gestational Age 15.3 NRG AFP, Serum 31.0 ng/mL NRG AFP MoM 1.09 NRG hCG, Serum 45.7 IU/mL NRG hCG MoM 1.15 NRG Estriol, Free 0.65 ng/mL NRG Estriol MoM 1.05 NRG Inhibin A, Dimeric 170 pg/mL NRG Inhibin A MoM 0.97 NRG h-hCG, Serum 42.8 mcg/L NRG h-hCG MoM 1.25 NRG Date of 1985 NRG Collection Date 03/29/2019 NRG Complete urinalysis with reflex to cultu re - 05/10/19 21:07 Urine color determination YELLOW NRG Urine clarity determination CLEAR NR G Urine pH measurement by test strip 6.0 5-9 Specific gravity of urine by test strip >= 1.016-1.022 Urine protein assay by test strip, semi-quantitative NEGATIVE NEGATIVE Urine glucose detection by automated test strip NE GATIVE NEGATIVE Erythrocytes detection in urine sediment by light micr oscopy NEGATIVE NEGATIVE Urine ketones detection by automated test strip NE GATIVE NEGATIVE Urine nitrite detection by test strip NEGATIVE NEGATIVE Urine total bilirubin detection by test strip NEGA TIVE NEGATIVE Urine urobilinogen measurement by automated test strip (mass/volume) 0.2 mg/dL < = 1.0 Urine leukocyte esterase detection by dipstick NEG ATIVE NEGATIVE Automated urine sediment erythrocyte cou nt by microscopy (number/high power field) NONE NRG Automated urine sediment leukocyte count by microscopy (number/high power field) NONE NRG Bacteria detection in urine sediment by light microsco py NEGATIVE NRG Squamous epithelial cells detection in u rine sediment by light microscopy 25-50 NRG Crystals detection in urine sediment by light microsco py NONE NRG Casts detection in urine sediment by light microscopy NONE NRG Mucus detection in urine sediment by light microscopy LARGE NRG Complete urinalysis with reflex to culture NO NRG Urine beta human chorionic gonadotropin (hCG) measurement - 05/10/19 21:07 Urine beta human chorionic gonadotropin (hCG) measurem ent POSITIVE NEGATIVE Complete blood count (CBC) with automate d white blood cell (WBC) differential - 05/10/19 21:36 Blood leukocytes automated count (number/volume) 12.3 10*3/uL 4.3-11.0 Blood erythrocytes automated count (number/volume) 4.19 10*6/uL 4.35-5.85 Venous blood hemoglobin measurement (mass/volume) 12.7 g/dL 11.5-16.0 Blood hematocrit (volume fraction) 38 % 35-52 Automated erythrocyte mean corpuscular volume 91 [ foz_us] 80-99 Automated erythrocyte mean corpuscular h emoglobin (mass per erythrocyte) 30 pg 25-34 Automated erythrocyte mean corpuscular h emoglobin concentration measurement (mass/volume) 34 g/dL 32-36 Automated erythrocyte distribution width ratio 14. 0 % 10.0- 14.5 Automated blood platelet count (count/volume) 236 10*3/uL 130-400 Automated blood platelet mean volume measurement 9.7 [foz_us] 7.4-10.4 Automated blood neutrophils/100 leukocytes 84 % 42-75 Automated blood lymphocytes/100 leukocytes 10 % 12-44 Blood monocytes/100 leukocytes 5 % 0-12 Automated blood eosinophils/100 leukocytes 0 % 0-10 Automated blood basophils/100 leukocytes 0 % 0-10 Blood neutrophils automated count (number/volume) 10.3 10*3 1.8-7.8 Blood lymphocytes automated count (number/volume) 1.2 10*3 1.0-4.0 Blood monocytes automated count (number/volume) 0. 6 10*3 0.0-1.0 Automated eosinophil count 0.0 10*3/uL 0 .0-0.3 Automated blood basophil count (count/volume) 0.0 10*3/uL 0.0-0.1 Comprehensive metabolic panel - 05/10/19 21:36 Serum or plasma sodium measurement (moles/volume) 138 mmol/L 135-145 Serum or plasma potassium measurement (moles/volume) 3.7 mmol/L 3.6-5.0 Serum or plasma chloride measurement (moles/volume) 103 mmol/L 98-107 Carbon dioxide 22 mmol/L 21-32 Serum or plasma anion gap determination (moles/volume) 13 mmol/L 5-14 Serum or plasma urea nitrogen measurement (mass/volume ) 10 mg/dL 7-18 Serum or plasma creatinine measurement (mass/volume) 0.56 mg/dL 0.60-1.30 Serum or plasma urea nitrogen/creatinine mass ratio 18 NRG Serum or plasma creatinine measurement w ith calculation of estimated glomerular filtration rate > NRG Serum or plasma glucose measurement (mass/volume) 194 mg/dL 70-105 Serum or plasma calcium measurement (mass/volume) 8.8 mg/dL 8.5-10.1 Serum or plasma total bilirubin measurement (mass/volu me) 0.5 mg/dL 0.1-1.0 Serum or plasma alkaline phosphatase cass surement (enzymatic activity/volume) 81 U/L 40-136 Serum or plasma aspartate aminotransfera se measurement (enzymatic activity/volume) 19 U/L 5-34 Serum or plasma alanine aminotransferase measurement (enzymatic activity/volume) 10 U/L 0-55 Serum or plasma protein measurement (mass/volume) 6.6 g/dL 6.4-8.2 Serum or plasma albumin measurement (mass/volume) 3.7 g/dL 3.2-4.5 CALCIUM CORRECTED 9.0 mg/dL 8.5-10.1 Lipase - 05/10/19 21:36 Lipase 89 U/L 8-78 Complete blood count (CBC) with automate d white blood cell (WBC) differential - 06/21/19 09:11 Blood leukocytes automated count (number/volume) 9.7 10*3/uL 4.3-11.0 Blood erythrocytes automated count (number/volume) 4.10 10*6/uL 4.35-5.85 Venous blood hemoglobin measurement (mass/volume) 12.6 g/dL 11.5-16.0 Blood hematocrit (volume fraction) 37 % 35-52 Automated erythrocyte mean corpuscular volume 91 [ foz_us] 80-99 Automated erythrocyte mean corpuscular h emoglobin (mass per erythrocyte) 31 pg 25-34 Automated erythrocyte mean corpuscular h emoglobin concentration measurement (mass/volume) 34 g/dL 32-36 Automated erythrocyte distribution width ratio 13. 6 % 10.0- 14.5 Automated blood platelet count (count/volume) 230 10*3/uL 130-400 Automated blood platelet mean volume measurement 9.4 [foz_us] 7.4-10.4 Automated blood neutrophils/100 leukocytes 84 % 42-75 Automated blood lymphocytes/100 leukocytes 10 % 12-44 Blood monocytes/100 leukocytes 6 % 0-12 Automated blood eosinophils/100 leukocytes 0 % 0-10 Automated blood basophils/100 leukocytes 0 % 0-10 Blood neutrophils automated count (number/volume) 8.1 10*3 1.8-7.8 Blood lymphocytes automated count (number/volume) 1.0 10*3 1.0-4.0 Blood monocytes automated count (number/volume) 0. 5 10*3 0.0-1.0 Automated eosinophil count 0.0 10*3/uL 0 .0-0.3 Automated blood basophil count (count/volume) 0.0 10*3/uL 0.0-0.1 Serum or plasma glucose measurement 3 ho urs post challenge (mass/volume) - 06/21/19 09:11 Serum or plasma glucose measurement 3 ho urs post challenge (mass/volume) NRG Blood group antibody screen - 06/21/19 0 9:11 Blood group antibody screen NEGATIVE NR G Serum reagin antibody assay (units/volum e) by RPR - 06/21/19 09:11 Serum reagin antibody assay (units/volume) by RPR Non-Reactive Non-Reactive Encounters ACCT No. Visit Date/Time Discharge Status Pt. Type Provider Facility Loc./Unit Complaint [id number] 12/06/2013 16:24:00 12/09/2013 12:05 :00 DIS Inpatient EMILY [facility] OB [id number] 09/12/2013 11:59:00 09/12/2013 11:59 :00 DIS Outpatient EMILY [facility] LAB [id number] 04/30/2013 00:00:00 Document Registration [id number] 04/30/2013 00:00:00 Document Registration [id number] 08/12/2019 14:40:00 020 23:59:59 CLS Outpatient JERMAINE DUARTE MD [facility] LABNPT Z34.90 [id number] 06/21/2019 08:48:00 23:59:59 CLS Outpatient FELICIA ZAMORA, JERMAINE Torres [facility] LAB FS Z34.90 O26.899 [id number] 05/10/2019 20:26:00 22:49:00 DIS Emergency DAQUAN BLOCK MD [facility] ER FS BACK PAIN [id number] 12/09/2018 18:13:00 19:45:00 DIS Emergency NILESH ESTRADA DO [facility] ER FS CHEST PAIN [id number] 07/21/2019 13:15:00 07/21/2019 23:59: 59 [facility] [id number] 03/29/2019 09:00:00 Document Registration [id number] 03/01/2019 09:00:00 Document Registration [id number] 02/02/2019 11:00:00 Document Registration [id number] 07/05/2017 10:10:03 ACT Unknown
[2019-08-30] MEDS: OXYTOCIN PRE-MIX DRIP 500 ML IV SCH ×2 (18:30→20:09)
[2019-08-30] MEDS: IBUPROFEN 600 MG (MOTRIN) TAB PO SCH (19:59)
[2019-08-30] MEDS: DOCUSATE SODIUM 100 MG (COLACE) CAP PO SCH (19:59)
--- NOTE | 2019-08-30 20:15 | NUR ---
Pt assisted standby to bathroom, pericare pads changed, Pt assisted to wc and transferred to pp unit room 311, oriented to call system and surroundings. Denies needs, epidural cath site wnl, bandaid noted, meds admin see emar. Pt denies needs, vss. Will cont to monitor.
[2019-08-31] MEDS: IBUPROFEN 600 MG (MOTRIN) TAB PO SCH ×3 (02:11→15:17)
[2019-08-31 02:13] VITALS: BP 100/56
[2019-08-31 06:00] LABS: BASOPHILS % (AUTO) 0 % (0-10); EOSINOPHILS # (AUTO) 0.1 10^3/uL (0.0-0.3); EOSINOPHILS % (AUTO) 1 % (0-10); HEMATOCRIT 37 % (35-52); HEMOGLOBIN 12.2 G/DL (11.5-16.0); LYMPHOCYTES # (AUTO) 1.7 X 10^3 (1.0-4.0); LYMPHOCYTES % (AUTO) 21 % (12-44); MEAN CORPUSCULAR HEMOGLOBIN 30 PG (25-34); MEAN CORPUSCULAR HGB CONC 33 G/DL (32-36); MEAN CORPUSCULAR VOLUME 91 FL (80-99); MEAN PLATELET VOLUME 10.4 FL (7.4-10.4); MONOCYTES # (AUTO) 0.7 X 10^3 (0.0-1.0); MONOCYTES % (AUTO) 9 % (0-12); NEUTROPHILS # (AUTO) 5.3 X 10^3 (1.8-7.8); NEUTROPHILS % (AUTO) 69 % (42-75); PLATELET COUNT 186 10^3/uL (130-400); WHITE BLOOD COUNT 7.8 10^3/uL (4.3-11.0)
--- NOTE | 2019-08-31 08:10 | Anesthesia-Regional Post-Op ---
Regional Patient Condition Mental Status: Alert, Oriented x3 Circulation: Same as Pre-Op Headache: Absent Sensation: Full Recovery Motor Block: Absent Post Op Complications Complications None Follow Up Care/Instructions Patient Instructions None needed. Anesthesia/Patient Condition Patient is doing well, no complaints, stable vital signs, no apparent adverse anesthesia problems. No complications reported per nursing. MARCELLA NEWBERRY CRNA Aug 31, 2019 08:10
[2019-08-31 08:45] VITALS: BP 134/66
--- NOTE | 2019-08-31 08:45 | NUR ---
A.M. ASSESSMENT COMPLETED. VSS. CARING FOR IN ROOM. GOOD INTERACTION NOTED.
[2019-08-31] MEDS: ACETAMINOPHEN 500 MG TAB (TYLENOL) PO SCH ×2 (08:54→15:16)
[2019-08-31] MEDS: DOCUSATE SODIUM 100 MG (COLACE) CAP PO SCH (08:54)
--- NOTE | 2019-08-31 11:00 | NUR ---
DR. DUARTE HERE TO SEE PT.
--- NOTE | 2019-08-31 11:23 | Discharge Summary ---
Discharge Inst-[facility] Reconcile Patient Problems Problems Reviewed?: Yes Depart Medications New, Converted or Re-Newed RX: Other (OTC medications.) Follow Up/Instructions Goal/Follow Up: Dr. Duarte in 6 weeks. Activity Activity: Activity as Tolerated Driving Instructions: You May Drive NO SMOKING: NO SMOKING Nothing Inside Vagina: No Douching, No [place], No Tampons Diet Discharge Diet: No Restrictions Symptoms to Report to : Bleeding Excessive, Fever Over 101 Degrees F JERMAINE DUARTE MD Aug 31, 2019 11:23
--- NOTE | 2019-08-31 11:25 | OB Labor & Delivery Record ---
Vag Delivery Note Vag Delivery Note Date of Delivery: 08/30/19 Preoperative Diagnosis: [place] Chisholm is a (34 /Para 5 / 3,Gestational Age (wks)38with [0 days] Postoperative Diagnosis: Same Surgeon: JERMAINE DUARTE Personal Support Worker: [none] Anesthesia: [epidural] Delivery Type: [] Findings: [] Viable [male] infant, apgars [8/9], weight [7 pounds 8 ounces] Lacerations: Intact placenta with 3 vessel cord. Nuchal cord times one with true knot that was loose. Estimated Blood Loss: [200] ml Complications: None Condition: Stable Description of Procedure: The patient is a 34 year old female who presented [with PROM]. She was admitted and informed consent was obtained. Her labor course was remarkable for [nothing] She progressed to complete dilatation and began to push. She was then set up for delivery. The 's head was delivered atraumatically in the [OA] position. The shoulders and remainder of the 's body were then delivered without difficulty. Upon delivery, the head was held below the level of the perineum and the mouth and nares were bulb suctioned. The cord was doubly clamped and cut after 60 seconds on maternal abdomen by father of the baby. An intact placenta with 3-vessel cord delivered via [place] and there was found to be minimal bleeding.~ Vigorous fundal massage was performed and the fundus was found to be firm. IV oxytocin was given. Examination of the vagina and perineum revealed no lacerations. Following the repair, sponge, instrument and needle counts were correct. Mom and baby were both in stable condition in the labor suite. Vitals - Labs Vital Signs - I&O Vital Signs Date Time Temp Pulse Resp B/P (MAP) Pulse Ox O2 Delivery O2 Flow Rate FiO2 08/31/19 02:13 36.8 69 18 100/56 (71) 98 Room Air 08/30/19 23:14 36.8 65 18 99/62 (74) 99 Room Air 08/30/19 19:57 86 18 107/55 (72) Room Air 08/30/19 19:43 87 18 120/60 (80) Room Air 08/30/19 19:28 90 18 113/60 (77) Room Air 08/30/19 19:14 36.9 82 18 110/55 (73) Room Air 08/30/19 18:28 97 123/61 (81) Room Air 08/30/19 18:13 89 125/65 (85) Room Air 08/30/19 18:00 36.5 16 117/78 (91) Room Air 08/30/19 17:45 85 16 146/64 (91) Room Air 08/30/19 17:30 70 16 122/68 (86) Room Air 08/30/19 17:15 37.1 69 16 124/57 (79) Room Air 08/30/19 17:00 80 16 121/58 (79) Room Air 08/30/19 16:45 69 16 135/62 (86) 100 Room Air 08/30/19 16:30 79 16 121/70 (87) 100 Room Air 08/30/19 16:15 36.5 71 16 109/56 (73) 100 Room Air 08/30/19 16:00 74 16 120/56 (77) 100 Room Air 08/30/19 15:45 36.6 70 16 128/60 (82) 100 Room Air 08/30/19 15:40 71 16 111/57 (75) 100 Room Air 08/30/19 15:35 66 16 118/59 (78) 100 Room Air 08/30/19 15:30 86 16 127/59 (81) 100 Room Air 08/30/19 15:25 68 16 130/65 (86) 100 Room Air 08/30/19 15:20 67 16 130/62 (84) 100 Room Air 08/30/19 15:15 72 16 128/66 (86) 100 Room Air 08/30/19 15:08 74 16 134/64 (87) 100 Room Air 08/30/19 15:05 83 16 136/64 (88) 99 Room Air 08/30/19 15:02 85 16 140/65 (90) 100 Room Air 08/30/19 14:59 77 16 139/68 (91) 100 Room Air 08/30/19 14:56 74 16 144/66 (92) 100 Room Air 08/30/19 14:53 81 16 141/64 (89) 100 Room Air 08/30/19 14:50 80 16 132/59 (83) 99 Room Air 08/30/19 14:47 80 16 131/61 (84) Room Air 08/30/19 14:44 91 16 150/66 (94) 98 Room Air 08/30/19 14:40 87 16 146/85 (105) Room Air 08/30/19 14:37 91 16 136/80 (98) 97 Room Air 08/30/19 14:35 94 16 132/66 (88) 97 Room Air 08/30/19 14:31 91 16 154/77 (102) 94 Room Air 08/30/19 14:27 107 16 142/77 (98) 96 Room Air 08/30/19 14:15 37.2 91 16 146/82 (103) 99 Room Air 08/30/19 14:00 92 16 142/86 (104) 99 Room Air 08/30/19 13:55 86 16 151/72 (98) 99 Room Air 08/30/19 13:45 79 16 129/64 (85) Room Air 08/30/19 13:30 112 160/67 (98) Room Air 08/30/19 13:15 77 16 129/69 (89) Room Air 08/30/19 13:00 75 16 119/70 (86) Room Air 08/30/19 12:45 74 16 132/86 (101) Room Air 08/30/19 12:30 36.9 68 16 124/69 (87) Room Air I & O 08/31/19 07:00 Intake Total 1507.4 ml Balance 1507.4 ml Labs Laboratory Tests 08/30/19 11:45: White Blood Count 8.5, Red Blood Count 4.50, Hemoglobin 13.8, Hematocrit 40, Mean Corpuscular Volume 90, Mean Corpuscular Hemoglobin 31, Mean Corpuscular Hemoglobin Concent 34, Red Cell Distribution Width 14.1, Platelet Count 222, Mean Platelet Volume 10.4, Neutrophils (%) (Auto) 80H, Lymphocytes (%) (Auto) 14, Monocytes (%) (Auto) 6, Eosinophils (%) (Auto) 0, Basophils (%) (Auto) 0, Neutrophils # (Auto) 6.8, Lymphocytes # (Auto) 1.1, Monocytes # (Auto) 0.5, Eosinophils # (Auto) 0.0, Basophils # (Auto) 0.0 08/31/19 05:32: White Blood Count 7.8, Red Blood Count 4.08L, Hemoglobin 12.2, Hematocrit 37, Mean Corpuscular Volume 91, Mean Corpuscular Hemoglobin 30, Mean Corpuscular Hemoglobin Concent 33, Red Cell Distribution Width 14.0, Platelet Count 186, M boom Platelet Volume 10.4, Neutrophils (%) (Auto) 69, Lymphocytes (%) (Auto) 21, Monocytes (%) (Auto) 9, Eosinophils (%) (Auto) 1, Basophils (%) (Auto) 0, Neutrophils # (Auto) 5.3, Lymphocytes # (Auto) 1.7, Monocytes # (Auto) 0.7, Eosinophils # (Auto) 0.1, Basophils # (Auto) 0.0 Microbiology 08/30/19 Urine Culture - Final, Complete 3 or more isolates Strep agalactiae Group B JERMAINE DUARTE MD Aug 31, 2019 11:25
--- NOTE | 2019-08-31 11:27 | Discharge Summary ---
Diagnosis/Chief Complaint Date of Admission Aug 30, 2019 at 15:24 Date of Discharge August 31, 2019 Admission Diagnosis Admission Diagnosis PROM at 38 0/7 wga. Discharge Diagnosis Term vaginal delivery Problems/Diagnosis: (1) care following vaginal delivery Discharge Summary-OBS Procedures None. Discharge Physical Examination Allergies: Coded Allergies: No Known Drug Allergies (Unverified , 05/10/19) Vitals & I&Os Intake and Output 08/31/19 00:00 Intake Total 1507.4 ml Balance 1507.4 ml Vital Sign - Last 12Hours Date Time Temp Pulse Resp B/P (MAP) Pulse Ox O2 Delivery O2 Flow Rate FiO2 08/31/19 02:13 36.8 69 18 100/56 (71) 98 Room Air General Appearance: Alert, Oriented X3 HEENT: Atraumatic Respiratory: Clear to Auscultation Cardiovascular: Regular Rate Abdominal: Other (fundus firm below umbilicus) Extremities: No Edema Skin: No Rashes Neuro: Normal Gait Psych/Mental Status: Mental Status NL Hospital Course Was the Problem List Reviewed?: Yes Uneventful course. Pain controlled. not wanting to latch. Labs Laboratory Tests 08/30/19 11:45: White Blood Count 8.5, Red Blood Count 4.50, Hemoglobin 13.8, Hematocrit 40, Mean Corpuscular Volume 90, Mean Corpuscular Hemoglobin 31, Mean Corpuscular Hemoglobin Concent 34, Red Cell Distribution Width 14.1, Platelet Count 222, Mean Platelet Volume 10.4, Neutrophils (%) (Auto) 80H, Lymphocytes (%) (Auto) 14, Monocytes (%) (Auto) 6, Eosinophils (%) (Auto) 0, Basophils (%) (Auto) 0, Neutrophils # (Auto) 6.8, Lymphocytes # (Auto) 1.1, Monocytes # (Auto) 0.5, Eosinophils # (Auto) 0.0, Basophils # (Auto) 0.0 08/31/19 05:32: White Blood Count 7.8, Red Blood Count 4.08L, Hemoglobin 12.2, Hematocrit 37, Mean Corpuscular Volume 91, Mean Corpuscular Hemoglobin 30, Mean Corpuscular Hemoglobin Concent 33, Red Cell Distribution Width 14.0, Platelet Count 186, Mean Platelet Volume 10.4, Neutrophils (%) (Auto) 69, Lymphocytes (%) (Auto) 21, Monocytes (%) (Auto) 9, Eosinophils (%) (Auto) 1, Basophils (%) (Auto) 0, Neutrophils # (Auto) 5.3, Lymphocytes # (Auto) 1.7, Monocytes # (Auto) 0.7, Eosinophils # (Auto) 0.1, Basophils # (Auto) 0.0 Microbiology 08/30/19 Urine Culture - Final, Complete 3 or more isolates Strep agalactiae Group B Discharge Instructions to patient/family Please see electronic discharge instructions given to patient. Discharge Medications Reviewed and agree with Discharge Medication list on patient's Discharge Instruction sheet Clinical Quality Measures DVT/VTE Risk/Contraindication: Risk Factor Score Per Nursin RFS Level Per Nursing on Admit: 1=Low/No VTE PPX JERMAINE DUARTE MD Aug 31, 2019 11:27
[2019-08-31 13:00] VITALS: BP 127/59
--- NOTE | 2019-08-31 13:00 | NUR ---
NO CHANGE IN STATUS.
--- NOTE | 2019-08-31 13:55 | NUR ---
MILK OF MAGNESIA GIVEN PER DR. ORDER PER PT REQUEST.
[2019-08-31] MEDS ORDERED: MILK OF MAGNESIA 400 MG/5 ML 30 ML UDC PO NR (14:00)
--- NOTE | 2019-08-31 15:28 | NUR ---
RESTING IN BED. SPOUSE AT BEDSIDE. ASLEEP IN OPEN CRIB.
[2019-08-31 17:15] VITALS: BP 109/61
--- NOTE | 2019-08-31 17:30 | NUR ---
DISCHARGE INSTRUCTIONS REVIEWED WITH COPY TO PT. STATES UNDERSTANDING OF ALL INSTRUCTIONS AND NEED TO F/U SCHEDULED AND NEEDED.
--- NOTE | 2019-08-31 17:40 | NUR ---
EATING STORK MEAL.
[2019-08-31 17:45] VITALS: BP 109/61
--- NOTE | 2019-08-31 17:45 | NUR ---
DISMISSED FROM WS IN STABLE CONDITION. PT WILL REMAIN IN THIS ROOM A BOARDER MOM R/T NOT BEING DISMISSED.
== END 2019-08-31 17:45 | disposition home or self-care (01) | DRG 807 ==
LOC: WSo 09:47 → LDRP 09:48 → WSo 15:24 → LDRP 15:24
PROVIDERS: ADMIT Family Medicine; ATTEND Family Medicine
PROC: 3E033VJ Introduction of Other Hormone into Peripheral Vein, Percutaneous Approach (ICD-10-PCS; 2019-08-30)
PROC: 10E0XZZ Delivery of Products of Conception, External Approach (ICD-10-PCS; principal; 2019-08-31)
DX: O42.02 Full-term premature rupture of membranes, onset of labor within 24 hours of rupture (principal); O69.81X0 Labor and delivery complicated by cord around neck, without compression, not applicable or unspecified; O69.2XX0 Labor and delivery complicated by other cord entanglement, with compression, not applicable or unspecified; Z37.0 Single live birth; Z3A.38 38 weeks gestation of pregnancy
CPT/HCPCS: 36415; 81000; 85025; 86850; 86900; 86901; 87077; 87088; 99212

== ENCOUNTER 2019-12-28 05:36 | Outpatient (RCR) | payer MEDICAID ==
[~2019-12-28] VITALS: Ht 167 cm; Wt 68.1 kg
[~2019-12-28 05:36] MED LIST changes: +PREN1TAB19 PO
[2019-12-28] MEDS ORDERED: PREN-142 PO (09:12)
== END 2019-12-28 10:02 | disposition home or self-care (01) ==
LOC: PREOP 05:36
PROVIDERS: ATTEND Surgery
DX: Z01.818 Encounter for other preprocedural examination (principal); K80.20 Calculus of gallbladder without cholecystitis without obstruction

== ENCOUNTER 2020-01-04 06:52 | Day surgery (SDC) | payer MEDICAID ==
[2020-01-04] VITALS (11 sets, daily range): BP systolic 110–141; BP diastolic 69–92
[~2020-01-04] VITALS: Ht 167 cm; Wt 68.1 kg
[~2020-01-04 06:52] MED LIST changes: +PREN-142 PO
--- OUTSIDE RECORDS SUMMARY | 2020-01-04 07:01 | XMS REPORT | Continuity of Care Document ---
Demographics x Preferred Language Unknown Marital Status Unknown Latter-Day Affiliation Unknown Race Unknown Ethnic Group Unknown Author Organization Unknown Address Unknown Phone Unavailable Allergies Active Description Code Type Severity Reaction Onset Reported/Identified Relationship to Patient Clinical Status Yes No Known Drug Allergies [id number] ND N/A N/A Confirmed or Verified Yes No Known Drug Allergies [id number] Drug Allergy Unknown N/A 12/28/2019 Medications There is no data. Problems Date Dx Coded Attending Type Code Diagnosis Diagnosed By 04/30/1001 TREMAINE GRAJEDA DO Ot K80.2 0 CALCULUS OF GALLBLADDER W/O CHOLECYSTITI 04/30/1001 TREMAINE GRAJEDA DO Ot Z01.8 18 ENCOUNTER FOR OTHER PREPROCEDURAL EXAMIN 12/09/2018 NILESH ESTRADA DO Ot R07. 89 OTHER CHEST PAIN 12/15/2018 NILESH ESTRADA DO Ot R07. 89 OTHER CHEST PAIN 05/10/2019 DAQUAN BLOCK MD Ot E86.0 DEHYDRATION 05/10/2019 DAQUAN BLOCK MD Ot K80.2 0 CALCULUS OF GALLBLADDER W/O CHOLECYSTITI 05/10/2019 DAQUAN BLOCK MD Ot K82.9 DISEASE OF GALLBLADDER, UNSPECIFIED 05/10/2019 DAQUAN BLOCK MD Ot Z33.1 STATE, INCIDENTAL 05/10/2019 DAQUAN BLOCK MD Ot Z79.5 2 SHELTER (CURRENT) USE OF SYSTEMIC STER 06/22/2019 JERMAINE DUARTE MD Ot O26.899 OTH [...] GESTATION OF NOT SPEC 08/26/2019 JERMAINE DUARTE MD, Ot Z34.90 ENCNTR FOR SUPRVSN OF NORMAL , 08/26/2019 JERMAINE DUARTE MD, Ot Z3A.00 WEEKS OF GESTATION OF NOT SPEC 08/30/2019 JERMAINE DUARTE MD Ot O26.899 OTH RELATED CONDITIONS, UNSPEC 08/30/2019 JERMAINE DUARTE MD, Ot Z34.90 ENCNTR FOR SUPRVSN OF NORMAL , 08/30/2019 JERMAINE DUARTE MD, Ot Z3A.00 WEEKS OF GESTATION OF NOT SPEC 08/31/2019 JERMAINE DUARTE MD Ot O42.02 FULL-TERM EVAN ROM, ONSET LABOR WITHIN 2 08/31/2019 JERMAINE DUARTE MD, Ot O69.2XX0 LABOR AND DEL COMP BY OTH CORD ENTANGLE, 08/31/2019 JERMAINE DUARTE MD Ot O69.81X0 LABOR AND DEL COMP BY CORD AROUND NECK, 08/31/2019 JERMAINE DUARTE MD Ot Z37 .0 SINGLE LIVE 08/31/2019 JERMAINE DUARTE MD, Ot Z3A.38 38 WEEKS GESTATION OF Procedures Code Description Performed By Per formed On 2T263FE IN TRODUCTION OF OTH HORMONE INTO PERIPH 08/30/2019 73D1CLY DE LIVERY OF PRODUCTS OF CONCEPTION, EXTE 08/31/2019 Results Test Result Range RHOGAM COMPONENT - [...] antibody assay (units/volume) by RPR Non-Reactive Non-Reactive Complete urinalysis with reflex to cultu re - 08/30/19 10:00 Urine color determination YELLOW NRG Urine clarity determination CLEAR NR G Urine pH measurement by test strip 6.0 5-9 Specific gravity of urine by test strip 1.025 1.016-1.022 Urine protein assay by test strip, semi-quantitative 1+ NEGATIVE Urine glucose detection by automated test strip NE GATIVE NEGATIVE Erythrocytes detection in urine sediment by light micr oscopy TRACE-I NEGATIVE Urine ketones detection by automated test strip 2+ NEGATIVE Urine nitrite detection by test strip NEGATIVE NEGATIVE Urine total bilirubin detection by test strip NEGA TIVE NEGATIVE Urine urobilinogen measurement by automated test strip (mass/volume) 0.2 mg/dL < = 1.0 Urine leukocyte esterase detection by dipstick 1+ NEGATIVE Automated urine sediment erythrocyte cou nt by microscopy (number/high power field) RARE NRG Automated urine sediment leukocyte count by microscopy (number/high power field) [HPF] NRG Bacteria detection in urine sediment by light microsco py FEW NRG Squamous epithelial cells detection in u rine sediment by light microscopy 5-10 NRG Crystals detection in urine sediment by light microsco py NONE NRG Casts detection in urine sediment by light microscopy NONE NRG Mucus detection in urine sediment by light microscopy SMALL NRG Complete urinalysis with reflex to culture YES NRG Bacterial urine culture - 08/30/19 10:00 Bacterial urine culture [id number] NRG COLONY COUNT . NRG SUSCEPTIBILITY PRESENT NRG MRSA SCREEN NO SUSCEPTIBILITY PERFORMED NRG RAPID ID PRELIM RAPID ID TESTING AT [facility] 08/30 8:50 NRG ID CONFIRMATION RML CONFIRMED ID 08/30 10:05 NRG Complete blood count (CBC) with automate d white blood cell (WBC) differential - 08/30/19 11:45 Blood leukocytes automated count (number/volume) 8.5 10*3/uL 4.3-11.0 Blood erythrocytes automated count (number/volume) 4.50 10*6/uL 4.35-5.85 Venous blood hemoglobin measurement (mass/volume) 13.8 g/dL 11.5-16.0 Blood hematocrit (volume fraction) 40 % 35-52 Automated erythrocyte mean corpuscular volume 90 [ foz_us] 80-99 Automated erythrocyte mean corpuscular h emoglobin (mass per erythrocyte) 31 pg 25-34 Automated erythrocyte mean corpuscular h emoglobin concentration measurement (mass/volume) 34 g/dL 32-36 Automated erythrocyte distribution width ratio 14. 1 % 10.0- 14.5 Automated blood platelet count (count/volume) 222 10*3/uL 130-400 Automated blood platelet mean volume measurement 10.4 [foz_us] 7.4-10.4 Automated blood neutrophils/100 leukocytes 80 % 42-75 Automated blood lymphocytes/100 leukocytes 14 % 12-44 Blood monocytes/100 leukocytes 6 % 0-12 Automated blood eosinophils/100 leukocytes 0 % 0-10 Automated blood basophils/100 leukocytes 0 % 0-10 Blood neutrophils automated count (number/volume) 6.8 10*3 1.8-7.8 Blood lymphocytes automated count (number/volume) 1.1 10*3 1.0-4.0 Blood monocytes automated count (number/volume) 0. 5 10*3 0.0-1.0 Automated eosinophil count 0.0 10*3/uL 0 .0-0.3 Automated blood basophil count (count/volume) 0.0 10*3/uL 0.0-0.1 Blood type T Indirect antibody screen pa lydia - 08/30/19 11:45 WRISTBAND NUMBER [id number] NRG ABO+Rh group ABN NRG Blood group antibody screen NEGATIVE NR G Complete blood count (CBC) with automate d white blood cell (WBC) differential - 08/31/19 05:32 Blood leukocytes automated count (number/volume) 7.8 10*3/uL 4.3-11.0 Blood erythrocytes automated count (number/volume) 4.08 10*6/uL 4.35-5.85 Venous blood hemoglobin measurement (mass/volume) 12.2 g/dL 11.5-16.0 Blood hematocrit (volume fraction) 37 % 35-52 Automated erythrocyte mean corpuscular volume 91 [ foz_us] 80-99 Automated erythrocyte mean corpuscular h emoglobin (mass per erythrocyte) 30 pg 25-34 Automated erythrocyte mean corpuscular h emoglobin concentration measurement (mass/volume) 33 g/dL 32-36 Automated erythrocyte distribution width ratio 14. 0 % 10.0- 14.5 Automated blood platelet count (count/volume) 186 10*3/uL 130-400 Automated blood platelet mean volume measurement 10.4 [foz_us] 7.4-10.4 Automated blood neutrophils/100 leukocytes 69 % 42-75 Automated blood lymphocytes/100 leukocytes 21 % 12-44 Blood monocytes/100 leukocytes 9 % 0-12 Automated blood eosinophils/100 leukocytes 1 % 0-10 Automated blood basophils/100 leukocytes 0 % 0-10 Blood neutrophils automated count (number/volume) 5.3 10*3 1.8-7.8 Blood lymphocytes automated count (number/volume) 1.7 10*3 1.0-4.0 Blood monocytes automated count (number/volume) 0. 7 10*3 0.0-1.0 Automated eosinophil count 0.1 10*3/uL 0 .0-0.3 Automated blood basophil count (count/volume) 0.0 10*3/uL 0.0-0.1 Encounters ACCT No. Visit Date/Time Discharge Status Pt. Type Provider Facility Loc./Unit Complaint [id number] 12/06/2013 16:24:00 12/09/2013 12:05 :00 DIS Inpatient SCOTT DIXIE [facility] OB [id number] 09/12/2013 11:59:00 09/12/2013 11:59 :00 DIS Outpatient DIXIE DIAZ [facility] LAB [id number] 04/30/2013 00:00:00 Document Registration [id number] 04/30/2013 00:00:00 Document Registration [id number] 12/28/2019 05:36:00 23:59:59 CLS Outpatient TREMAINE GRAJEDA DO [facility] PREOP GALLSTONES [id number] 08/30/2019 15:24:00 17:45:00 DIS Inpatient JERMAINE DUARTE MD [facility] LDRP LABOR [id number] 08/12/2019 14:40:00 23:59:59 CLS Outpatient JERMAINE DUARTE MD [facility] LABNPT Z34.90 [id number] 06/21/2019 08:48:00 23:59:59 CLS Outpatient JERMAINE DUARTE MD [facility] LAB FS Z34.90 [id number] [id number] 05/10/2019 20:26:00 22:49:00 DIS Emergency DAQUAN BLOCK MD [facility] ER FS BACK PAIN [id number] 12/09/2018 18:13:00 19:45:00 DIS Emergency NILESH ESTRADA DO [facility] ER FS CHEST PAIN [id number] 01/04/2020 06:52:[address] Outpatient TREMAINE GRAJEDA DO [facility] SDC GALLSTONES [id number] 07/21/2019 13:15:00 07/21/2019 23:59: 59 CLS Out[facility] [id number] 03/29/2019 09:00:00 Document Registration [id number] 03/01/2019 09:00:00 Document Registration [id number] 02/02/2019 11:00:00 Document Registration [id number] 07/05/2017 10:10:03 ACT Unknown
[2020-01-04] MEDS ORDERED: BUP/EPI 0.5% 1:200,000 (MARCAINE) 10ML VIAL IJ ONE (07:24)
[2020-01-04] MEDS ORDERED: LIDOCAINE PF 2% 5 ML (XYLOCAINE) VIAL ONE (07:36)
[2020-01-04] MEDS ORDERED: ONDANSETRON 4 MG/2 ML (SDV) Z0FRAN ONE (07:36)
[2020-01-04] MEDS ORDERED: SEVOFLURANE (ULTANE) 15 ML INHAL SOLN ONE ×3 (07:36→09:31)
[2020-01-04] MEDS ORDERED: fentaNYL INJECTION 100 MCG/2 ML AMP ONE (07:36)
[2020-01-04] MEDS ORDERED: proPOfol 200 MG/20 ML (DIPRIVAN) VIAL IV ONE (07:36)
[2020-01-04] MEDS ORDERED: MIDAZOLAM 2 MG/2 ML (VERSED) VIAL ONE (07:37)
[2020-01-04] MEDS ORDERED: CATHETER FLUSH 10 ML SYR IV PRN (07:45)
[2020-01-04] MEDS ORDERED: ROCURONIUM 10 MG/ML 5 ML SYRINGE IV ONE (07:45)
[2020-01-04] MEDS ORDERED: ceFAZolin INJECTION 1,000 MG in WATER (STERILE) FOR INJECTION 10 ML IV ONE (07:45)
[2020-01-04] MEDS: LACTATED RINGERS 1,000 ML IV PRN ×2 (07:56→09:47)
[2020-01-04] MEDS ORDERED: GLYCOPYRROLATE 0.2 MG/ML (ROBINUL) 2 ML VIAL ONE (08:59)
[2020-01-04] MEDS ORDERED: NEOSTIGMINE 3 MG/3 ML VIAL ONE (08:59)
[2020-01-04] MEDS ORDERED: HYDR-4226 PO (09:26)
--- NOTE | 2020-01-04 09:26 | Progress Note-Post Operative ---
Post-Operative Progess Note Surgeon (s)/Ink Technician (s) Surgeon TREMAINE GRAJEDA DO Ink Technician: Romi Pre-Operative Diagnosis CHOLELITHIASIS Post-Operative Diagnosis same Procedure & Operative Findings Date of Procedure 01/04/20 Procedure Performed/Findings PROCEDURE: Laparoscopic cholecystectomy with intraoperative cholangiogram. COMPLICATIONS: None. PROCEDURE: The patient was taken to the operating suite and was prepped and draped in sterile fashion. A surgical pause was performed. Just superior to the umbilicus, a 12 mm incision was made. Dissection was taken down to the fascia, which was then scored and grasped with a Olive and the abdomen was then entered. A 0 Vicryl suture was placed in a kkasyv-[id number]-ddvjs fashion and a Santos trocar was placed and secured. Pneumoperitoneum was achieved. A 5mm trochar place in the subxyphoid and 2 in the right upper quadrant. The gallbladder was then grasped and elevated. The cystic duct, and cystic artery were then dissected out. Clip was placed on the distal portion of the cystic duct which was then partially transected. An arrow catheter was inserted into the duct. The cholangiogram was then performed. No filing defects and contrast made its way into the duodenum. Catheter removed. Clips were placed on proximal portion of the cystic duct and then the duct was then transected. Clips were placed along the proximal and distal portion of the cystic artery which was then transected. Pt had a very large cystic duct and clips did not go all the way across; therefore, elected to use an endoloop to ligate the cystic duct. Hook cautery was used to dissect the gallbladder from the gallbladder fossa achieving hemostasis. The gallbladder was placed in an Endobag and removed through the 12 mm trocar site. The abdomen was then reinspected. Copious amounts of irrigation were used to irrigate the abdomen and there were no signs of active bleeding. Hemostasis had been achieved. The 12 mm fascial defect was then closed with 0 Vicryl suture that had been placed in a dmqsfh-sf-ckzab fashion. The abdomen was then desufflated, the trocars were removed. The abdomen was then washed and dried. The skin was then closed using 4-0 Monocryl in a subcuticular fashion. The abdomen was washed and dried and Skin Affix was place over incisions. Patient tolerated the procedure well without any complications and was taken to the recovery room in stable condition. Dr Llanos assisted on this case helping to make incisions, close incisions, identify anatomy and hold anatomy out of the way. Anesthesia Type GET Estimated Blood Loss Estimated blood loss (mL): scant Specimens/Packing Specimens Removed GB and contents TREMAINE GRAJEDA DO Jan 04, 2020 09:26
--- NOTE | 2020-01-04 09:27 | Discharge Inst-Surgical ---
Discharge Inst-Surgical Depart Medication/Instructions New, Converted or Re-Newed RX: RX Given to Pt/Family Patient Instructions Follow up Appt: Make appointment for 1 week. [phone] Instructions: No lifting greater than 20 pounds. No strenuous activity. May shower in 24 hours, no tub bath or soaking. Use incentive spirometer at home as directed. No Smoking Skin/Wound Care: May remove bandages in am. You need to leave the Dermabond on incision it will fall off on it's own. Symptoms to Report: Appetite Changes, Extremity Discoloration, Numbness/Tingling, Swelling Increased, Bleeding Excessive, Eyesight Changes, Pain Increased, Urine Color Change, Constipation(Persistent), Fever over 101 degree F, Pain/Pressure in chest, Urinating Difficulty, Cough Up/Vomit Blood, Heart Beat Irreg/Pounding, Pain/Pressure in jaw, Cramps in feet or legs, Lightheadedness, Pain/Pressure in shoulder, Diarrhea(Persistent), Memory Changes Suddenly, Questions/Concerns, Weight gain consecutive days, Dizziness/Fainting, Nausea/Vomiting, Shortness of Breath, Weight gain over 2 pounds If questions or concerns contact your physician Or seek help at emergency department. Activity Activity as Tolerated: Yes Activity Instructions: Avoid Stress to Incision Driving Instructions: No Driving/Refer to Diet Discharge Diet: Avoid Fatty Foods, Low Fat/Low Cholesterol Diet After 24 Hours: Clear Liquid if Nauseous If Any Problems/Questions/Issu: Contact Your Physician, Go to Emergency Room Skin/Wound Care Infection Signs and Symptoms: Increased Redness, Foul Odor of Wound, Increased Drainage, Skin Itchy or Has a Rash, Increased Swelling, Temperature Above 101 F Wound Care Comment: heating pad to shoulder or neck tonight for pain Bathing Instructions: Shower Operative Area Clean and Dry: Keep Incision Clean/Dry Stitches/Jus/Dermabond Dis: Dermabond Ice Pack: Ice On and Off Site TREMAINE GRAJEDA DO Jan 04, 2020 09:27
[2020-01-04] MEDS ORDERED: morphine INJ 10 MG/ML 1ML (SYR OR VIAL) ONE (09:40)
--- NOTE | 2020-01-04 09:40 | Anesthesia-General Post-Op ---
General Patient Condition Mental Status/LOC: Same as Preop Cardiovascular: Satisfactory Nausea/Vomiting: Absent Respiratory: Satisfactory Pain: Controlled Complications: Absent Post Op Complications Complications None Follow Up Care/Instructions Patient Instructions None needed. Anesthesia/Patient Condition Patient Condition Patient is doing well, no complaints, stable vital signs, no apparent adverse anesthesia problems. No complications reported per nursing. DEE VIZCARRA CRNA Jan 04, 2020 09:40
[2020-01-04] MEDS ORDERED: morphine INJ 10 MG/ML 1ML (SYR OR VIAL) IVP ONE (09:45)
[2020-01-04] MEDS ORDERED: ONDANSETRON 4 MG/2 ML (SDV) Z0FRAN IVP PRN (09:45)
[2020-01-04] MEDS ORDERED: MEPERIDINE (DEMEROL) INJ 50 MG/ML IVP ONE (09:45)
[2020-01-04] MEDS ORDERED: IOPAMIDOL 61% 30 ML (ISOVUE 300) VIAL ONE (09:48)
--- NOTE | 2020-01-04 10:30 | NUR ---
TO AMB SURG FROM PAR PER CART. AWAKE, DROWSY. RATES ABD SURGICAL SITE PAIN 2. SKIN AFFIX INTACT TO X4 LAP ABD SURGICAL SITES, ICE PACK ON. SKIN AREA AROUND LAP SITES BLANCHED, PALE PINK. PO FLUIDS PROVIDED.
--- NOTE | 2020-01-04 10:41 | Diagnostic Imaging Report ---
INDICATION: Fluoroscopy during intraoperative cholangiogram. Fluoroscopy was provided in OR during intraoperative cholangiogram. 18 seconds of fluoroscopic time was utilized. Contrast has been injected via the cystic duct remnant. Intrahepatic and extra hepatic bile ducts are of normal caliber. No filling defects are seen. Contrast flows into the duodenum. IMPRESSION: Fluoroscopy during intraoperative cholangiogram. Dictated by: Dictated on workstation # [id number]
[2020-01-04] MEDS ORDERED: HYDROcodone/APAP 5 MG/325 MG (LORTAB) TAB PO ONE (11:00)
--- NOTE | 2020-01-04 11:30 | NUR ---
AWAKE, RATES SURGICAL SITE/ABD PAIN 6. HAS HAD CRACKERS AND PO FLUIDS. LORTAB 5/325 MG, ONE TAB, GIVEN PO FOR PAIN.
--- NOTE | 2020-01-04 12:40 | NUR ---
HAS BEEN RESTING QUIETLY IN BED WITH EYES CLOSED. PAIN RATE 3. DERMABOND REMAINS INTACT TO LAP SURGICAL SITES, ABD SOFT, NON-DISTENDED. INSTRUCTED ON INCENTIVE SPIROMETRY. STATES SHE IS READY FOR DISMISSAL.
== END 2020-01-04 12:52 | disposition home or self-care (01) ==
LOC: SDC 06:52
PROVIDERS: ATTEND Surgery
DX: K80.10 Calculus of gallbladder with chronic cholecystitis without obstruction (principal); F41.9 Anxiety disorder, unspecified; Z79.899 Other long term (current) drug therapy
CPT/HCPCS: 76000; 84703; 87081

== ENCOUNTER → 2020-11-08 | Outpatient (CLI) | payer MEDICAID ==
[~2020-11-08] MED LIST changes: +HYDR-4226 PO
[2020-11-08 10:41] LABS: HEMATOCRIT 41 % (35-52); HEMOGLOBIN 13.8 G/DL (11.5-16.0); MEAN CORPUSCULAR HEMOGLOBIN 30 PG (25-34); MEAN CORPUSCULAR HGB CONC 34 G/DL (32-36); MEAN CORPUSCULAR VOLUME 88 FL (80-99); MEAN PLATELET VOLUME 9.3 FL (7.4-10.4); PLATELET COUNT 286 10^3/uL (130-400); WHITE BLOOD COUNT 7.5 10^3/uL (4.3-11.0)
[2020-11-08 10:42] LABS: BASOPHILS % (AUTO) 0 % (0-10); EOSINOPHILS # (AUTO) 0.1 10^3/uL (0.0-0.3); EOSINOPHILS % (AUTO) 1 % (0-10); LYMPHOCYTES # (AUTO) 1.1 X 10^3 (1.0-4.0); LYMPHOCYTES % (AUTO) 14 % (12-44); MONOCYTES # (AUTO) 0.4 X 10^3 (0.0-1.0); MONOCYTES % (AUTO) 6 % (0-12); NEUTROPHILS % (AUTO) 79 % (42-75)
== END ==
LOC: LAB FS 10:13
PROVIDERS: ATTEND Family Medicine
DX: R06.00 Dyspnea, unspecified (principal)
CPT/HCPCS: 36415; 84443; 85025

== ENCOUNTER → 2020-12-24 | Outpatient (CLI) | payer MEDICAID ==
[2020-12-24 15:27] LABS: HEMATOCRIT 42 % (35-52); HEMOGLOBIN 13.8 G/DL (11.5-16.0); MEAN CORPUSCULAR HEMOGLOBIN 30 PG (25-34); MEAN CORPUSCULAR HGB CONC 33 G/DL (32-36); MEAN CORPUSCULAR VOLUME 90 FL (80-99); MEAN PLATELET VOLUME 9.7 FL (7.4-10.4); PLATELET COUNT 277 10^3/uL (130-400); WHITE BLOOD COUNT 10.1 10^3/uL (4.3-11.0)
== END ==
LOC: LAB FS 14:23
PROVIDERS: ATTEND Family Medicine
DX: Z34.91 Encounter for supervision of normal pregnancy, unspecified, first trimester (principal); Z3A.00 Weeks of gestation of pregnancy not specified
CPT/HCPCS: 36415; 85027; 86703; 86762; 86780; 86850; 86900; 86901; 87088; 87340

== ENCOUNTER → 2021-02-26 | Outpatient (CLI) | payer MEDICAID | LOC: LAB FS 13:05 | PROVIDERS: ATTEND Family Medicine | DX: Z34.91 Encounter for supervision of normal pregnancy, unspecified, first trimester (principal); Z3A.00 Weeks of gestation of pregnancy not specified | CPT/HCPCS: 36415; 82105; 82677; 84702; 86336 ==

== ENCOUNTER → 2021-05-14 | Outpatient (CLI) | payer MEDICAID ==
[2021-05-14 08:51] LABS: HEMATOCRIT 40 % (35-52); HEMOGLOBIN 13.6 g/dL (11.5-16.0); MEAN CORPUSCULAR HEMOGLOBIN 31 pg (25-34); MEAN CORPUSCULAR HGB CONC 34 g/dL (32-36); MEAN CORPUSCULAR VOLUME 90 fL (80-99); MEAN PLATELET VOLUME 9.2 fL (9.0-12.2); PLATELET COUNT 241 10^3/uL (130-400); WHITE BLOOD COUNT 8.1 10^3/uL (4.3-11.0)
== END ==
LOC: LAB FS 08:18
PROVIDERS: ATTEND Family Medicine
DX: Z34.91 Encounter for supervision of normal pregnancy, unspecified, first trimester (principal)
CPT/HCPCS: 36415; 82951; 82952; 85027; 86780; 86850

== ENCOUNTER 2021-07-02 13:12 | Outpatient (CLI) | payer MEDICAID ==
[~2021-07-02] VITALS: Ht 167.6 cm; Wt 78.1 kg
[2021-07-02 13:30] VITALS: BP 119/74
[2021-07-02 13:40] VITALS: BP 119/74
[2021-07-02 13:47] VITALS: BP 119/74
[2021-07-02] MEDS ORDERED: PREN1TAB79 PO (14:44)
[2021-07-02 15:10] VITALS: BP 119/74
--- NOTE | 2021-07-02 16:19 | Physician Query-Final Dx ---
Clinic Account Progress/Dx Physician Query: Date of Service Jul 02, 2021 at 13:12 DIAGNOSIS: Diagnosis 35 week gestation gastroenteritis decreased movement FRANDY HARVEY DO Jul 02, 2021 16:19
== END 2021-07-02 15:10 | disposition home or self-care (01) ==
LOC: WSo 13:12 → LDRP 13:12 → WSo 15:10
PROVIDERS: ATTEND Obstetrics & Gynecology
DX: O36.8130 Decreased fetal movements, third trimester, not applicable or unspecified (principal); Z3A.35 35 weeks gestation of pregnancy
CPT/HCPCS: 87636

== ENCOUNTER 2021-07-29 20:00 | Inpatient (IN) | payer MEDICAID ==
[~2021-07-29] VITALS: Ht 167.7 cm; Wt 80.5 kg
[~2021-07-29 20:00] MED LIST changes: +PREN1TAB79 PO
[2021-07-29 21:00] VITALS: BP 136/77
[2021-07-29] MEDS ORDERED: AMPICILLIN FOR IV USE 2,000 MG in NS (IVPB) 50 ML IV SCH (21:02)
[2021-07-29] MEDS: D5 LR IV SOLUTION 1,000 ML IV SCH (21:09)
[2021-07-29] MEDS ORDERED: MINERAL OIL 30 ML OIL TOP PRN (21:15)
[2021-07-29] MEDS ORDERED: LACTATED RINGERS 1,000 ML IV SCH (21:15)
[2021-07-29 21:38] LABS: BASOPHILS % (AUTO) 0 % (0-10); EOSINOPHILS % (AUTO) 0 % (0-10); HEMATOCRIT 35 % (35-52); HEMOGLOBIN 11.7 g/dL (11.5-16.0); LYMPHOCYTES # (AUTO) 1.5 10^3/uL (1.0-4.0); LYMPHOCYTES % (AUTO) 15 % (12-44); MEAN CORPUSCULAR HEMOGLOBIN 30 pg (25-34); MEAN CORPUSCULAR HGB CONC 34 g/dL (32-36); MEAN CORPUSCULAR VOLUME 89 fL (80-99); MEAN PLATELET VOLUME 10.2 fL (9.0-12.2); MONOCYTES # (AUTO) 0.7 10^3/uL (0.0-1.0); MONOCYTES % (AUTO) 7 % (0-12); NEUTROPHILS # (AUTO) 7.9 10^3/uL (1.8-7.8); NEUTROPHILS % (AUTO) 78 % (42-75); PLATELET COUNT 190 10^3/uL (130-400); WHITE BLOOD COUNT 10.3 10^3/uL (4.3-11.0)
[2021-07-29 22:00] VITALS: BP 134/75
[2021-07-29] MEDS ORDERED: CATHETER FLUSH 10 ML SYR IV SCH (22:00)
[2021-07-29 23:00] VITALS: BP 134/75
[2021-07-29] MEDS ORDERED: morphine INJ 10 MG/ML 1ML (SYR OR VIAL) IVP STA (23:13)
[2021-07-29] MEDS ORDERED: D5 LR IV SOLUTION 1,000 ML IV ONE (23:55)
[2021-07-29] MEDS ORDERED: morphine INJ 10 MG/ML 1ML (SYR OR VIAL) ONE (23:55)
[2021-07-30] VITALS (44 sets, daily range): BP systolic 107–187; BP diastolic 55–89
[2021-07-30] MEDS: D5 LR IV SOLUTION 1,000 ML IV SCH ×2 (00:03→09:19)
[2021-07-30] MEDS: AMPICILLIN FOR IV USE 1,000 MG in NS (IVPB) 50 ML IV SCH ×3 (00:03→07:50)
[2021-07-30] MEDS ORDERED: LACTATED RINGERS 1,000 ML IV ONE (07:00)
[2021-07-30] MEDS ORDERED: fentaNYL 2 mcg/ml BUPIVA 0.125 100 ML ONE (07:14)
[2021-07-30] MEDS: EPIDURAL (fentaNYL 2 MCG/ML BUPIVA 0.125%)100 ML BAG EPI SCH ×2 (07:40→13:35)
[2021-07-30] MEDS ORDERED: ONDANSETRON 4 MG/2 ML (SDV) Z0FRAN IV PRN (07:45)
[2021-07-30] MEDS ORDERED: LACTATED RINGERS 1,000 ML IV SCH (07:45)
[2021-07-30] MEDS ORDERED: METOCLOPRAMIDE INJ 10 MG/2 ML (REGLAN) IV PRN (07:45)
[2021-07-30] MEDS ORDERED: diphenhydrAMINE 50 MG/ML INJ (BENADRYL) IV PRN (07:45)
[2021-07-30] MEDS ORDERED: NALOXONE 0.4 MG/ML 1 ML (NARCAN) VIAL IV PRN ×3 (07:45→11:45)
--- NOTE | 2021-07-30 08:56 | OB Triage Report ---
Standard Progress Note Progress Notes/Assess & Plan Date Seen by a Provider: Jul 30, 2021 Time Seen by a Provider: 08:00 Expected Date of Delivery: Jul 06, 2022 Gestational Age in Weeks: 39 Gestational Age in Days: 2 LMP/ISRAEL Comment: 39 week gestation Progress/Assessment & Plan Received misoprostol x 1 last night and then had spontaneous contractions. At 0645 was 6 cm dilated and tahira every 4-6 minutes. She had epidural placement and is comfortable. Category 1 strip Contractions currently irregular. SVE 6-7, bulging membrane, AROM with blood tinged fluid Anticipate FRANDY HARVEY DO Jul 30, 2021 08:56
--- NOTE | 2021-07-30 09:00 | History & Physical-OB ---
OB - Chief Complaint & HPI Date/Time Date of Admission: Date of Admission: Jul 29, 2021 at 20:19 Date seen by a Provider: Jul 30, 2021 Time Seen by a Provider: 08:00 Chief Complaint/History OB-Reason for Admission/Chief: Induction of Labor (Presents for induction of labor at term. She has history of shoulder dystocia with first . Last US with this projects baby to be large. Also lives 45 minutes from the hospital ) Hx : 6 Hx Para: 4 Expected Date of Delivery: Jul 06, 2022 Gestational Age in Weeks: 39 Gestational Age in Days: 2 Indication for induction: maternal distance Admission Nurse Assessment Rev: Yes History of Labs AB -/ + Rub I VDRL NR HIV - HBsAg - Hep C - GBS + Allergies and Home Medications Allergies Coded Allergies: No Known Drug Allergies (Unverified , 12/28/19) Patient Home Medication List Home Medication List Reviewed: Yes Acetaminophen (Acetaminophen) 500 Mg Tablet, 1,000 MG PO Q8HR Prescribed by: FRANDY HARVEY on 07/30/21 1141 Docusate Sodium (Docusate Sodium) 100 Mg Capsule, 100 MG PO BID Prescribed by: FRANDY HARVEY on 07/30/21 1141 Ibuprofen (Ibu) 600 Mg Tablet, 600 MG PO Q6HR Prescribed by: FRANDY HARVEY on 07/30/21 1141 Vit W-Ca,Fe,FA(<1 mg) ( Vitamins) 1 Each Tablet, 1 EACH PO DAILY, (Reported) Entered as Reported by: RAYO HERNANDEZ on 07/02/21 1444 Last Action: Reviewed OB - History Hx of Present Ultrasounds: Normal mid trimester US Obstetrical Complications: None Information Induced Hypertension: No Maternal Gestational Diabetes: No Hemorrhage: No Obstetrical History Hx : 6 Hx Para: 4 Delivery History Hx Dystocia: Yes Hx Forceps Assisted Delivery: No Adverse Rxn to Tranfusion: No (N/A) Patient Past Medical History previously healthy Social History/Family History 2nd Hand Smoke Exposure: No Immunizations Influenza Vaccine Up-to-Date: No; Not Current Hepatitis A: Yes Hepatitis B: Yes Tetanus Booster (TDap): Less than 5yrs OB - Admission Exam Physical Exam Vitals: Vital Signs 07/30/21 07/30/21 05:19 07:00 Temp 37.0 Pulse 62 Resp 18 B/P (MAP) 155/84 (107) Pulse Ox 100 O2 Delivery Non Rebreather O2 Flow Rate 15.00 Labs Laboratory Tests Test 07/29/21 21:27 07/30/21 03:53 Range/Units White Blood Count 10.3 4.3-11.0 10^3/uL Red Blood Count 3.88 3.80-5.11 10^6/uL Hemoglobin 11.7 11.5-16.0 g/dL Hematocrit 35 35-52 % Mean Corpuscular Volume 89 80-99 fL Mean Corpuscular Hemoglobin 30 25-34 pg Mean Corpuscular Hemoglobin Concent 34 32-36 g/dL Red Cell Distribution Width 13.3 10.0-14.5 % Platelet Count 190 130-400 10^3/uL Mean Platelet Volume 10.2 9.0-12.2 fL Immature Granulocyte % (Auto) 1 % Neutrophils (%) (Auto) 78 H 42-75 % Lymphocytes (%) (Auto) 15 12-44 % Monocytes (%) (Auto) 7 0-12 % Eosinophils (%) (Auto) 0 0-10 % Basophils (%) (Auto) 0 0-10 % Neutrophils # (Auto) 7.9 H 1.8-7.8 10^3/uL Lymphocytes # (Auto) 1.5 1.0-4.0 10^3/uL Monocytes # (Auto) 0.7 0.0-1.0 10^3/uL Eosinophils # (Auto) 0.0 0.0-0.3 10^3/uL Basophils # (Auto) 0.0 0.0-0.1 10^3/uL Immature Granulocyte # (Auto) 0.1 0.0-0.1 10^3/uL Membranes Rupture NEGATIVE OB - Assessment/Plan/Diagnosis Assessment Assessment: induction of labor Admission Dx 39 week gestation grand multipara history of shoulder dystocia distance from hospital Admission Status: Inpatient Order (span 2 midnights) Reason for Inpatient Admission: labor Plan Plan: Induction Induction Method: per Misoprostol Protocol FRANDY HARVEY DO Jul 30, 2021 09:00
[2021-07-30] MEDS ORDERED: LIDOCAINE/EPI 2% 1:200,00 (XYLOCAINE) 10 ML VIAL ONE (10:41)
[2021-07-30] MEDS ORDERED: OXYTOCIN PRE-MIX DRIP 500 ML IV ONE (10:41)
--- NOTE | 2021-07-30 11:39 | OB Labor & Delivery Record ---
Vag Delivery Note Vag Delivery Note Date of Delivery: 07/30/21 Preoperative Diagnosis: Washington Chisholm is a 36 /Para 6 / 4,Gestational Age 39 2/7 weeks, induction, GBA +, history of shoulder dystocia, AB - Postoperative Diagnosis: Same Surgeon: FRANDY HARVEY [employer] Builder: Sawyer Bolivar MS IV Anesthesia: epidural Delivery Type: vaginal Findings: Viable female , apgars 8/9, weight pending Lacerations: none Intact placenta with 3 vessel cord. Nuchal cord x 1 delivered through, no body cord or shoulder dystocia Estimated Blood Loss: 150 ml Complications: None Condition: Stable Description of Procedure: The patient is a 36 year old female who presented for induction of labor at 39 2/7 weeks. She was admitted and informed consent was obtained. Her labor course was remarkable for misoprostol cervical ripening, AROM and ampicillin for GBS prophylaxis (she received 4 doses). She progressed to complete dilatation and began to push. She was then set up for delivery. The infant's head was delivered atraumatically in the KILLIAN position. The shoulders and remainder of the infant's body were then delivered without difficulty. Upon delivery, the head was held below the level of the perineum and the mouth and nares were bulb suctioned. The cord was doubly clamped and cut and the was handed off to the pediatric staff. An intact placenta with 3-vessel cord delivered via Cordell and there was found to be minimal bleeding.~ Vigorous fundal massage was performed and the fundus was found to be firm. IV oxytocin was given. Examination of the vagina and perineum revealed no laceration. Following the delivery, sponge, instrument and needle counts were correct. Mom and baby were both in stable condition in the labor suite. Vitals - Labs Vital Signs - I&O Vital Signs Date Time Temp Pulse Resp B/P (MAP) Pulse Ox O2 Delivery O2 Flow Rate FiO2 07/30/21 10:34 36.4 67 18 107/56 (73) 100 Room Air 07/30/21 10:21 58 18 108/57 (74) 100 Room Air 07/30/21 10:05 61 18 107/57 (74) 100 Room Air 07/30/21 09:19 76 18 113/72 (86) 100 Room Air 07/30/21 09:04 68 18 111/72 (85) 100 Room Air 07/30/21 08:46 58 18 113/67 (82) Room Air 07/30/21 08:42 36.1 63 18 124/58 (80) 100 Room Air 07/30/21 08:37 75 18 111/72 (85) Room Air 07/30/21 08:34 66 18 119/62 (81) 100 Room Air 07/30/21 08:29 72 18 122/72 (89) 100 Room Air 07/30/21 08:21 73 18 115/71 (86) 100 Room Air 07/30/21 08:17 73 18 117/66 (83) 99 Room Air 07/30/21 08:12 74 18 115/69 (84) 100 Room Air 07/30/21 08:06 71 18 117/72 (87) Room Air 07/30/21 08:03 71 18 116/77 (90) 100 Room Air 07/30/21 07:59 76 18 118/81 (93) 99 Room Air 07/30/21 07:56 82 18 117/75 (89) Room Air 07/30/21 07:53 74 18 123/67 (85) 99 Room Air 07/30/21 07:51 72 18 115/74 (88) Room Air 07/30/21 07:48 68 18 137/76 (96) 99 Room Air 07/30/21 07:45 72 18 126/75 (92) 99 Room Air 07/30/21 07:42 73 18 129/79 (96) Room Air 07/30/21 07:39 74 18 119/67 (84) 100 Room Air 07/30/21 07:36 75 18 123/67 (85) Room Air 07/30/21 07:33 71 18 144/76 (98) 99 Room Air 07/30/21 07:30 36.3 108 18 145/66 (92) 95 Room Air 07/30/21 07:00 62 18 155/84 (107) 100 Non Rebreather 15.00 07/30/21 06:00 71 18 136/83 (100) 100 Non Rebreather 15.00 07/30/21 05:19 37.0 58 18 100 Non Rebreather 07/30/21 05:00 58 18 132/73 (92) 100 Non Rebreather 15.00 07/30/21 04:00 58 18 132/73 (92) 100 Non Rebreather 15.00 07/30/21 03:00 58 18 132/73 (92) 100 Non Rebreather 15.00 07/30/21 02:00 61 18 187/88 (121) 100 Non Rebreather 15.00 07/30/21 01:00 37.0 66 18 133/89 (104) 100 Non Rebreather 15.00 07/30/21 00:00 64 18 150/86 (107) 99 Non Rebreather 15.00 07/29/21 23:00 66 18 134/75 (94) 99 Non Rebreather 15.00 07/29/21 22:00 66 18 134/75 (94) 99 Room Air 07/29/21 21:00 36.8 75 18 136/77 (96) Room Air Labs Laboratory Tests 07/29/21 21:27: White Blood Count 10.3, Red Blood Count 3.88, Hemoglobin 11.7, Hematocrit 35, Mean Corpuscular Volume 89, Mean Corpuscular Hemoglobin 30, Mean Corpuscular Hemoglobin Concent 34, Red Cell Distribution Width 13.3, Platelet Count 190, Mean Platelet Volume 10.2, Immature Granulocyte % (Auto) 1, Neutrophils (%) (Auto) 78H, Lymphocytes (%) (Auto) 15, Monocytes (%) (Auto) 7, Eosinophils (%) (Auto) 0, Basophils (%) (Auto) 0, Neutrophils # (Auto) 7.9H, Lymphocytes # (Auto) 1.5, Monocytes # (Auto) 0.7, Eosinophils # (Auto) 0.0, Basophils # (Auto) 0.0, Immature Granulocyte # (Auto) 0.1 07/30/21 03:53: Membranes Rupture NEGATIVE FRANDY HARVEY DO Jul 30, 2021 11:39
--- NOTE | 2021-07-30 11:40 | Discharge Inst-Women's Service ---
Discharge Inst-Women's Serv Depart Medication/Instructions New, Converted or Re-Newed RX: Transmitted to Pharmacy Final Diagnosis 39 week gestation grand multipara GBS + AB - blood type Problems Reviewed?: Yes Consults/Follow Up Additional Follow Up: Yes ([address] Contreras) Activity Activity: Activity as Tolerated Driving Instructions: You May Drive NO SMOKING: NO SMOKING Nothing Inside Vagina: No Douching, No [place], No Tampons Diet Discharge Diet: No Restrictions Symptoms to Report to : Swelling Increased, Bleeding Excessive, Pain Increased, Fever Over 101 Degrees F, Vaginal Bleeding Increase, Cramps in Feet or Legs, Vaginal Discharge Foul For Any Problems or Questions: Contact Your Physician Skin/Wound Care Bathing Instructions: FRANDY Shea DO Jul 30, 2021 11:40
[2021-07-30] MEDS ORDERED: DOCU100C37 PO (11:41)
[2021-07-30] MEDS ORDERED: IBUP-844 PO (11:41)
[2021-07-30] MEDS ORDERED: ACET-93 PO (11:41)
[2021-07-30] MEDS ORDERED: MEASLES,MUMPS,RUBELLA 1 EA INJ SQ ONE (11:45)
[2021-07-30] MEDS ORDERED: WITCH HAZEL(TUCKS) 40 EA JAR TOP PRN (11:45)
[2021-07-30] MEDS ORDERED: TETANUS,DIPTH,PERTUSS P/F (BOOSTRIX) 0.5 ML VIAL IM ONE (11:45)
[2021-07-30] MEDS ORDERED: OXYTOCIN PRE-MIX DRIP 500 ML IV SCH (11:45)
[2021-07-30] MEDS ORDERED: BENZOCAINE/MENTHOL (DERMOPLAST) 56 ML CAN TP PRN (11:45)
[2021-07-30] MEDS ORDERED: CATHETER FLUSH 10 ML SYR IV SCH (14:00)
[2021-07-30] MEDS: ACETAMINOPHEN 500 MG TAB (TYLENOL) PO SCH (15:07)
[2021-07-30] MEDS: IBUPROFEN 600 MG (MOTRIN) TAB PO SCH ×2 (16:23→22:02)
[2021-07-30] MEDS: DOCUSATE SODIUM 100 MG (COLACE) CAP PO SCH (22:02)
[2021-07-31 00:44] VITALS: BP 118/68
[2021-07-31] MEDS: ACETAMINOPHEN 500 MG TAB (TYLENOL) PO SCH ×2 (00:44→08:17)
[2021-07-31] MEDS: IBUPROFEN 600 MG (MOTRIN) TAB PO SCH ×2 (04:19→10:52)
[2021-07-31 04:20] VITALS: BP 120/66
[2021-07-31 05:41] LABS: BASOPHILS % (AUTO) 0 % (0-10); EOSINOPHILS # (AUTO) 0.1 10^3/uL (0.0-0.3); EOSINOPHILS % (AUTO) 1 % (0-10); HEMATOCRIT 33 % (35-52); HEMOGLOBIN 10.9 g/dL (11.5-16.0); LYMPHOCYTES # (AUTO) 1.6 10^3/uL (1.0-4.0); LYMPHOCYTES % (AUTO) 19 % (12-44); MEAN CORPUSCULAR HEMOGLOBIN 30 pg (25-34); MEAN CORPUSCULAR HGB CONC 33 g/dL (32-36); MEAN CORPUSCULAR VOLUME 91 fL (80-99); MEAN PLATELET VOLUME 10.4 fL (9.0-12.2); MONOCYTES # (AUTO) 0.6 10^3/uL (0.0-1.0); MONOCYTES % (AUTO) 8 % (0-12); NEUTROPHILS # (AUTO) 5.9 10^3/uL (1.8-7.8); NEUTROPHILS % (AUTO) 72 % (42-75); PLATELET COUNT 183 10^3/uL (130-400); WHITE BLOOD COUNT 8.2 10^3/uL (4.3-11.0)
[2021-07-31] MEDS ORDERED: PRENATAL VITAMIN 1 EA TAB PO SCH (07:00)
[2021-07-31] MEDS: DOCUSATE SODIUM 100 MG (COLACE) CAP PO SCH (08:17)
[2021-07-31 08:19] VITALS: BP 126/76
--- NOTE | 2021-07-31 08:19 | Postpartum Progress Note ---
Note Note Day # 1 s/p Subjective: Patient is without complaints. Ambulating, voiding. Tolerating a regular diet without nausea or vomiting. Normal lochia. Pain is well controlled with oral pain medications. feeding. breast Objective: 07/30/21 07/31/21 07/31/21 22:02 00:44 04:20 Temp 36.7 36.4 36.4 Pulse 73 62 64 Resp 18 18 18 B/P (MAP) 112/55 (74) 118/68 (85) 120/66 (84) Pulse Ox 97 98 97 O2 Delivery Room Air Room Air Room Air 07/31/21 00:00 Intake Total 500 ml Balance 500 ml Laboratory Tests Test 07/31/21 05:31 Range/Units White Blood Count 8.2 4.3-11.0 10^3/uL Red Blood Count 3.63 L 3.80-5.11 10^6/uL Hemoglobin 10.9 L 11.5-16.0 g/dL Hematocrit 33 L 35-52 % Mean Corpuscular Volume 91 80-99 fL Mean Corpuscular Hemoglobin 30 25-34 pg Mean Corpuscular Hemoglobin Concent 33 32-36 g/dL Red Cell Distribution Width 13.4 10.0-14.5 % Platelet Count 183 130-400 10^3/uL Mean Platelet Volume 10.4 9.0-12.2 fL Immature Granulocyte % (Auto) 0 % Neutrophils (%) (Auto) 72 42-75 % Lymphocytes (%) (Auto) 19 12-44 % Monocytes (%) (Auto) 8 0-12 % Eosinophils (%) (Auto) 1 0-10 % Basophils (%) (Auto) 0 0-10 % Neutrophils # (Auto) 5.9 1.8-7.8 10^3/uL Lymphocytes # (Auto) 1.6 1.0-4.0 10^3/uL Monocytes # (Auto) 0.6 0.0-1.0 10^3/uL Eosinophils # (Auto) 0.1 0.0-0.3 10^3/uL Basophils # (Auto) 0.0 0.0-0.1 10^3/uL Immature Granulocyte # (Auto) 0.0 0.0-0.1 10^3/uL Physical Exam: General - Alert and oriented, no apparent distress Abdomen - Soft, appropriately tender to palpation, non-distended, fundus firm at umbilicus Extremities - no edema, negative Kelsey's bilaterally Assessment: 1. post- day # 1, status post spontaneous vaginal delivery. Recovering well, hemodynamically stable Plan: Routine care. Encourage breast feeding. Encourage ambulation. Ferrous sulfate supplementation. Plan for discharge Vitals - Labs Vital Signs - I&O Vital Signs Date Time Temp Pulse Resp B/P (MAP) Pulse Ox O2 Delivery O2 Flow Rate FiO2 07/31/21 04:20 36.4 64 18 120/66 (84) 97 Room Air 07/31/21 00:44 36.4 62 18 118/68 (85) 98 Room Air 07/30/21 22:02 36.7 73 18 112/55 (74) 97 Room Air 07/30/21 16:17 36.5 70 18 118/57 (77) 98 Room Air 07/30/21 13:21 36.4 75 18 113/59 (77) Room Air 07/30/21 12:51 74 18 122/59 (80) Room Air 07/30/21 12:18 65 18 117/66 (83) Room Air 07/30/21 12:03 62 18 126/72 (90) Room Air 07/30/21 11:48 36.2 69 18 123/63 (83) Room Air 07/30/21 11:04 69 18 127/75 (92) 100 Room Air 07/30/21 10:50 73 18 138/70 (92) 100 Room Air 07/30/21 10:34 36.4 67 18 107/56 (73) 100 Room Air 07/30/21 10:21 58 18 108/57 (74) 100 Room Air 07/30/21 10:05 61 18 107/57 (74) 100 Room Air 07/30/21 09:19 76 18 113/72 (86) 100 Room Air 07/30/21 09:04 68 18 111/72 (85) 100 Room Air 07/30/21 08:46 58 18 113/67 (82) Room Air 07/30/21 08:42 36.1 63 18 124/58 (80) 100 Room Air 07/30/21 08:37 75 18 111/72 (85) Room Air 07/30/21 08:34 66 18 119/62 (81) 100 Room Air 07/30/21 08:29 72 18 122/72 (89) 100 Room Air 07/30/21 08:21 73 18 115/71 (86) 100 Room Air I & O 07/31/21 07:00 Intake Total 3050 ml Balance 3050 ml Labs Laboratory Tests 07/31/21 05:31: White Blood Count 8.2, Red Blood Count 3.63L, Hemoglobin 10.9L, Hematocrit 33L, Mean Corpuscular Volume 91, Mean Corpuscular Hemoglobin 30, Mean Corpuscular Hemoglobin Concent 33, Red Cell Distribution Width 13.4, Platelet Count 183, Mean Platelet Volume 10.4, Immature Granulocyte % (Auto) 0, Neutrophils (%) (Auto) 72, Lymphocytes (%) (Auto) 19, Monocytes (%) (Auto) 8, Eosinophils (%) (Auto) 1, Basophils (%) (Auto) 0, Neutrophils # (Auto) 5.9, Lymphocytes # (Auto) 1.6, Monocytes # (Auto) 0.6, Eosinophils # (Auto) 0.1, Basophils # (Auto) 0.0, Immature Granulocyte # (Auto) 0.0 Microbiology 07/29/21 Urine Culture - Final, Complete 3 or more isolates Strep agalactiae Group B FRANDY HARVEY DO Jul 31, 2021 08:19
[2021-07-31] MEDS ORDERED: FERROUS SULF 325 MG (IRON) TAB PO SCH (09:00)
--- NOTE | 2021-07-31 10:13 | Anesthesia-Regional Post-Op ---
Regional Patient Condition Mental Status: Alert, Oriented x3 Circulation: Same as Pre-Op Headache: Absent Sensation: Full Recovery Motor Block: Absent Post Op Complications Complications None Follow Up Care/Instructions Patient Instructions None needed. Anesthesia/Patient Condition Patient is doing well, no complaints, stable vital signs, no apparent adverse anesthesia problems. No complications reported per nursing. [place] [facility] [place]: Yes DARIEL MILLER CRNA Jul 31, 2021 10:13
[2021-07-31 10:52] VITALS: BP 116/67
[2021-07-31] MEDS ORDERED: MINERAL OIL CONCENTRATE 99.9% 15 ML UDC PO PRN (12:30)
== END 2021-07-31 17:00 | disposition home or self-care (01) | DRG 807 ==
LOC: LDRP 20:19
PROVIDERS: ADMIT Obstetrics & Gynecology; ATTEND Obstetrics & Gynecology
PROC: 10E0XZZ Delivery of Products of Conception, External Approach (ICD-10-PCS; principal; 2021-07-30)
PROC: 10907ZC Drainage of Amniotic Fluid, Therapeutic from Products of Conception, Via Natural or Artificial Opening (ICD-10-PCS; 2021-07-30)
DX: O99.824 Streptococcus B carrier state complicating childbirth (principal); Z37.0 Single live birth; Z3A.39 39 weeks gestation of pregnancy; O69.81X0 Labor and delivery complicated by cord around neck, without compression, not applicable or unspecified
CPT/HCPCS: 36415; 84112; 85025; 86850; 86900; 86901; 87077; 87088